=== PATIENT | male | born 1955 | race Caucasian/White ===

== ENCOUNTER 2016-03-28 00:45 | Inpatient (IN) | payer BC, OTHER ==
[2016-03-28] VITALS (9 sets, daily range): BP systolic 114–152; BP diastolic 53–66; PULSE 72–82; RESP 18–20; TEMP 98; Ht 167.6 cm; Wt 94.0 kg
[~2016-03-28] VITALS: Ht 167.6 cm; Wt 94.0 kg
[~2016-03-28 00:45] MED LIST: ALLO300T2 PO; ALPR1TAB2 PO; BECL8.7A5 INH; DOXA4TAB3 PO; GABA300C16 PO; GEMF600T60 PO; GLIP5TAB13 PO; HYDR-3011 PO; HYDR-762 PO; INSU100V14 SC; LEVO50TA74 PO; PANT40TA3 PO; PARO-37 PO; SEVE800T10 PO; SITA50TA2 PO
[2016-03-28] MEDS ORDERED: morphine 4 MG/ML VIAL IV STA ×2 (01:00→01:54)
[2016-03-28] MEDS ORDERED: ONDANSETRON 4 MG INJ IV STA (01:00)
[2016-03-28 01:25] LABS: BASOPHILS % 0.4 % (0.0-2.0); EOSINOPHILS % 0.7 % (0.0-7.0); HEMATOCRIT 41.1 % (42.0-52.0); HEMOGLOBIN 13.3 g/dl (14.0-18.0); LYMPHOCYTES # 1.1 10^3/ul (0.8-2.9); LYMPHOCYTES % 19.2 % (15.0-51.0); MEAN CORPUSCULAR HEMOGLOBIN 30.1 pg (29.0-33.0); MEAN CORPUSCULAR HGB CONC 32.4 g/dl (32.0-37.0); MEAN CORPUSCULAR VOLUME 92.9 fl (82.0-101.0); MEAN PLATELET VOLUME 8.4 fl (7.4-10.4); MONOCYTE # 0.3 10^3/ul (0.3-0.9); MONOCYTES % 5.4 % (0.0-11.0); NEUTROPHIL # 4.4 10^3/ul (1.6-7.5); NEUTROPHILS % 74.3 % (39.0-77.0); PLATELET COUNT 180 10^3/UL (140-440); RED BLOOD COUNT 4.43 10^6/ul (4.70-6.10); RED CELL DISTRIBUTION WIDTH 20.1 % (11.5-14.5); UNCORRECTED WBC 5.9 10^3/ul (4.8-10.8); WHITE BLOOD COUNT 5.9 10^3/ul (4.8-10.8)
--- NOTE | 2016-03-28 01:31 | RADRPT ---
PROCEDURE: XR Chest. CLINICAL INDICATION: Single frontal view of the chest. TECHNIQUE: Single frontal view of the chest was obtained COMPARISON: 01/15/2016. FINDINGS: Cardiomegaly with bilateral patchy lung base air space disease and left pleural effusion. Airspace disease and effusion are new or interval. There is no pneumothorax. IMPRESSION: Cardiomegaly and mild failure, with small left pleural effusion. RPTAT: [facility] Physician Maryellen Date Time Electronically viewed and signed by Samantha Swanson Physician on 03/28/2016 01:31 RS/
[2016-03-28 01:33] LABS: CONDITION 1; LH ANALYZER COMMENTS 1
[2016-03-28 01:36] LABS: ALBUMIN 3.8 g/dl (3.3-4.9)
[2016-03-28 01:37] LABS: POTASSIUM 5.6 mmol/L (3.5-5.1)
[2016-03-28 01:39] LABS: ALBUMIN/GLOBULIN RATIO 0.95; CREATININE 8.4 mg/dl (0.61-1.24); TOTAL PROTEIN 7.8 g/dl (6.1-8.1)
[2016-03-28 01:52] LABS: TROPONIN-I 0.018 ng/ml (0.00-0.12)
--- NOTE | 2016-03-28 02:17 | ERA ---
ER Documentation Chief Complaint Date/Time DATE: 03/28/16 TIME: 02:16 Chief Complaint CP at xyphoid process, upper sternum, left shoulder x 45 min "pulsating" HPI 60-year-old male comes in with chest pain shortness of breath for the past 2 days getting progressively worse. Patient stated medical history along with history of congestive heart failure. Pain is mild to moderate intensity. Shortness of breath is mild to moderate severity. No nausea no vomiting no fevers no chills. No other current complaints. ROS All systems reviewed and are negative except as per history of present illness. Medications Home Meds Active Scripts Glipizide* (Glipizide*) 5 Mg Tablet, 5 MG PO AC BREAKFAST DINNER for 60 Days, TAB Prov:STACEY NEWTON. 05/31/15 Alprazolam* (Xanax*) 1 Mg Tab, 1 MG PO BID Y for ANXIETY, #30 TAB Prov:STACEY NEWTON. 05/31/15 Hydrocodone Bit-Acetaminophen* ([place]*) 10-325 Mg Tablet, 1 TAB PO Q4H Y for PAIN, #20 TAB Prov:KAYLYN ORDAZ MD 02/20/15 Reported Medications Pantoprazole* (Protonix*) 40 Mg Tablet.dr, 40 MG PO DAILY, TAB 02/20/15 Gabapentin* (Gabapentin*) 300 Mg Capsule, 300 MG PO BID, CAP 03/17/14 Sitagliptin* (Januvia*) 50 Mg Tablet, 50 MG PO DAILY, TAB 03/17/14 Allopurinol* (Allopurinol*) 300 Mg Tablet, 300 MG PO DAILY, TAB 12/02/13 Beclomethasone Dip* (Qvar 80*) 7.3 Gm Inha, 1 PUFF INH BID, INH 12/02/13 Levothyroxine Sodium* (Levothyroxine Sodium*) 50 Mcg Tablet, 50 MCG PO AC BREAKFAST, TAB 12/02/13 Doxazosin Mesylate* (Doxazosin Mesylate*) 4 Mg Tablet, 4 MG PO DAILY, TAB 12/02/13 Gemfibrozil* (Gemfibrozil*) 600 Mg Tablet, 600 MG PO DAILY, TAB 12/02/13 Hydroxyzine Hcl* (Hydroxyzine Hcl*) 25 Mg Tablet, 25 MG PO DAILY for ITCHING, TAB 12/02/13 Sevelamer Hcl* (Renagel*) 800 Mg Tablet, 800 MG PO TID, TAB 09/10/13 Insulin Regular, Human (Humulin R) 100 Units/Ml Vial, SC HS, VIAL per sliding scale 09/10/13 Paroxetine Hcl* (Paroxetine*) 20 Mg Tablet, 20 MG PO DAILY, TAB 09/02/13 Allergies Allergies: Coded Allergies: No Known Allergy (Unverified , 12/29/15) PER PT NOT ALLERGIC TO IRON (NKA) PMhx/Soc History of Surgery: Yes (AV fistula, CABG, aortofemoral bypass bilaterally) Anesthesia Reaction: No Hx Neurological Disorder: No Hx Respiratory Disorders: Yes (COPD) Hx Cardiac Disorders: Yes (S/P CABG, HTN) Hx Psychiatric Problems: No Hx Miscellaneous Medical Probl: Yes (CKD) Hx Alcohol Use: No Hx Substance Use: No Hx Tobacco Use: Yes Smoking Status: Current every day smoker Physical Exam Vitals Vital Signs Date Time Temp Pulse Resp B/P Pulse Ox O2 Delivery O2 Flow Rate FiO2 03/28/16 01:03 Nasal Cannula 2 03/28/16 00:46 98.5 96 20 134/68 98 Physical Exam Const: [] Head: Atraumatic Eyes: Normal Conjunctiva ENT: Normal External Ears, Nose and Mouth. Neck: Full range of motion..~ No meningismus. Resp: Clear to auscultation bilaterally Cardio: Regular rate and rhythm, no murmurs Abd: Soft, non tender, non distended. Normal bowel sounds Skin: No petechiae or rashes Back: No midline or flank tenderness Ext: No cyanosis, or edema Neur: Awake and alert Psych: Normal Mood and Affect Result Diagram: 03/28/16 0050 03/28/16 0050 Results 24 hrs Laboratory Tests Test 03/28/16 00:50 Alanine Aminotransferase (ALT/SGPT) 13IU/L Albumin 3.8g/dl Albumin/Globulin Ratio 0.95 Alkaline Phosphatase 108IU/L Anion Gap 24 Aspartate Amino Transf (AST/SGOT) 16IU/L B-Type Natriuretic Peptide 296462VP/ML Basophils # 0.010^3/ul Basophils % 0.4% Blood Morphology Comment Blood Urea Nitrogen 44mg/dl Calcium Level 9.0mg/dl Carbon Dioxide Level 23mmol/L Chloride Level 104mmol/L Creatinine 8.40mg/dl Direct Bilirubin 0.00mg/dl Eosinophils # 0.010^3/ul Eosinophils % 0.7% Globulin 4.00g/dl Glucose Level 191mg/dl Hematocrit 41.1% Hemoglobin 13.3g/dl Indirect Bilirubin 0.0mg/dl Lymphocytes # 1.110^3/ul Lymphocytes % 19.2% Mean Corpuscular Hemoglobin 30.1pg Mean Corpuscular Hemoglobin Concent 32.4g/dl Mean Corpuscular Volume 92.9fl Mean Platelet Volume 8.4fl Monocytes # 0.310^3/ul Monocytes % 5.4% Neutrophils # 4.410^3/ul Neutrophils % 74.3% Nucleated Red Blood Cells # 0.010^3/ul Nucleated Red Blood Cells % 0.0/100WBC Platelet Count 78879^3/UL Potassium Level 5.6mmol/L Red Blood Count 4.4310^6/ul Red Cell Distribution Width 20.1% Sodium Level 145mmol/L Total Bilirubin 0.0mg/dl Total Protein 7.8g/dl Troponin I 0.018ng/ml White Blood Count 5.910^3/ul Current Medications Medications (Trade) Dose Ordered Sig/Romaine Route PRN Reason Start Time Stop Time Status Last Admin Dose Admin Morphine Sulfate (morphine) 4 mg ONCE STAT IV 03/28/16 01:00 03/28/16 01:04 DC 03/28/16 01:10 Ondansetron HCl (Zofran Inj) 4 mg ONCE STAT IV 03/28/16 01:00 03/28/16 01:04 DC 03/28/16 01:09 Morphine Sulfate (morphine) 4 mg ONCE STAT IV 03/28/16 01:54 03/28/16 01:57 DC 03/28/16 01:58 Procedures/MDM Chest X-ray 1V Interpreted by me: Soft Tissue: No acute abnormalities Bones: No acute abnormalities Mediastinum/Cardiac Silhouette/Lungs: Cardiomegaly. Pleural effusion. Increased interstitial fluid markings. Impression: CHF EKG: Rate/Rhythm: Normal Sinus Rhythm QRS, ST, T-waves: No changes consistent w/ acute ischemia Impression: No evidence of ischemia or arrhythmia Patient's heart failure symptoms is concerning for acute decompensation and will require inpatient workup and monitoring. Further w/u for ischemia, arrhythmia, PE or dissection will be deferred to the inpatient team. Accepting Care Team: Current data and ongoing care discussed. Time: 2 AM Primary Provider: Hospitalist Consulting: [XOXRICHARO] Outstanding Data: none Departure Diagnosis: Primary Impression: Chest pain Qualified Code: I20.9 - Ischemic chest pain Additional Impression: CHF (congestive heart failure) Qualified Code: I50.9 - Congestive heart failure, unspecified congestive heart failure chronicity, unspecified congestive heart failure type Condition: Serious BARB CARR Mar 28, 2016 02:17
[2016-03-28 03:05] LABS: INR 1.06; PROTIME 13.8 Sec (12.2-14.2); PT RATIO 1.1
[2016-03-28 03:06] LABS: PARTIAL THROMBOPLASTIN TIME 28.6 Sec (25.0-35.0)
[2016-03-28] MEDS ORDERED: HYDROmorphONE 1 MG/ML SYG IV STA (04:13)
[2016-03-28] MEDS ORDERED: HYDROCODONE/APAP (10/325) TAB PO PRN (08:30)
[2016-03-28] MEDS ORDERED: ACETAMINOPHEN 325 MG TAB PO PRN (08:30)
[2016-03-28] MEDS ORDERED: NACL 0.9% 3 ML SYG IV SCH (08:30)
[2016-03-28] MEDS ORDERED: NITROGLYCERIN (SL) 0.4 MG TAB SL PRN (08:30)
[2016-03-28] MEDS ORDERED: ONDANSETRON 4 MG INJ IV PRN (08:30)
[2016-03-28] MEDS ORDERED: ALBUTEROL/IPRATROPIUM (NEB) 3 ML AMP HHN PRN (08:30)
[2016-03-28] MEDS ORDERED: ALPRAZOLAM 1 MG TAB PO PRN (09:00)
--- NOTE | 2016-03-28 09:00 | HP ---
DATE OF ADMISSION: 03/28/2016 TIME SEEN: 6 a.m. CHIEF COMPLAINT: Chest pain and shortness of breath. 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 The patient presented with substernal chest pain with radiation to his left shoulder as well a s shortness of breath of 2 days' duration. When he presented to the ER, blood pressure was 134/68, heart rate 96, respiration rate 20, temperature 98.5, oxygen saturation 98% on 2 liters. Laboratory value shows a hemoglobin of 13.3. Sodium 145, potassium 5.6, BUN 44, creatinine 8.4. Ot herwise, CBC and BMP are within acceptable range. His BNP is 158,000. Chest x-ray shows cardiomegaly and a mild failure with small left pleural effusion. The patient was given morphine, Zofran and Dilaudid while he was in the ER. REVIEW OF SYSTEMS: A 12-point review was performed, negative except as mentioned in HPI. PAST MEDICAL HISTORY: As per HPI. PAST SURGICAL HISTORY: Coronary artery bypass graft, aortobifemoral bypass, AV fistula. SOCIAL HISTORY: History of 1 pack per day for over 40 years. ALLERGIES: NO KNOWN DRUG ALLERGIES. HOME MEDICATIONS: 1. Doxazosin. 2. Gemfibrozil. 3. Xanax. 4. Gabapentin. 5. [place]. 6. Hydroxyzine. 7. Paroxetine. 8. Sevelamer. 9. Protonix. 10. Glipizide. 11. Insulin. 12. Synthroid. 13. Januvia. 14. Allopurinol. PHYSICAL EXAMINATION: GENERAL: The patient is lying on a gurney in the ER in no acute distress. HEENT: No obvious head deformity. Pupils are reactive to light. Extraocular muscles intact. CARDIOVASCULAR: Regular rate and rhythm. CHEST: Lungs with diminished breath sounds at the bases. He has a midline wound VAC. ABDOMEN: Soft, nontender, nondistended. EXTREMITIES: Right lower extremity surgical ____ . LABORATORY DATA: Pertinent positives as mentioned in the HPI. IMAGING: Chest x-ray with results as mentioned in the HPI. IMPRESSION: 1. Chest pain, need to rule out acute coronary syndrome. 2. Shortness of breath, most likely secondary to congestive heart failure exacerbation. 3. End-stage renal disease on dialysis. 4. History of coronary artery disease with history of coronary artery bypass graft. 5. Diabetes. 6. Hypertension, 7. Hypothyroidism. 8. History of dyslipidemia. 9. History of BPH. 10. History of aortobifemoral bypass, complicated by infection, status post multiple excisional june geries. 11. Hyperkalemia. 12. Obesity with a BMI of 33. PLAN: Admit to telemetry unit. His first troponin is negative, but we will send additional troponi ns. Since last echocardiogram here was a year and half ago, so will order one. We will place a car diology consult as well as also nephrology consult for dialysis. We will be placed on aspirin, oxyge n and will provide breathing treatments as needed as well. We will continue his home medication adj usted as needed. The patient follows up [facility] and as such will notify them of the patient's admission, especially given recent history of infected aortobifemoral bypass. Further workup and management per clinical course. Dictated By: BARB MATHEW/ROD Conf#: [id number] DID#: [id number]
[2016-03-28] MEDS: morphine 2 MG INJ IV PRN ×2 (09:07→20:31)
[2016-03-28] MEDS: SEVELAMER 800 MG TAB PO SCH ×3 (10:58→20:30)
[2016-03-28] MEDS: PANTOPRAZOLE (EC) 40 MG TAB PO SCH (10:59)
[2016-03-28] MEDS: GEMFIBROZIL 600 MG TAB PO SCH (10:59)
[2016-03-28] MEDS: PAROXETINE 20 MG TAB PO SCH (10:59)
[2016-03-28] MEDS: LINAGLIPTIN 5 MG TABLET PO SCH (10:59)
[2016-03-28] MEDS: GABAPENTIN 300 MG CAP PO SCH ×2 (10:59→20:30)
[2016-03-28] MEDS: hydrOXYzine HCL 25 MG TAB PO SCH (11:00)
[2016-03-28] MEDS: ALLOPURINOL 100 MG TAB PO SCH (11:00)
[2016-03-28] MEDS: MOMETASONE 0.24 GM INHALER INH SCH ×2 (11:01→20:29)
[2016-03-28] MEDS: HEPARIN 5,000 UNIT/0.5 ML SYG SC SCH ×2 (11:02→20:42)
[2016-03-28] MEDS: INSULIN ASPART [NOVOLOG] 3 ML PEN SC SCH ×3 (11:09→20:37)
[2016-03-28] MEDS ORDERED: AMO500 PO (11:59)
--- NOTE | 2016-03-28 14:09 | PN ---
Date/Time of Note Date/Time of Note DATE: 03/28/16 TIME: 14:03 Assessment/Plan VTE Prophylaxis VTE Prophylaxis Intervention: heparin Lines/Catheters IV C[facility]ter Type (from [facility] Saline Lock Urinary Cath still in place: No Assessment/Plan Chief Complaint/Hosp Course IMPRESSION: 1. Chest pain, need to rule out acute coronary syndrome. Cardiology has been consulted, is likely secondary to CHF exacerbation Serial troponin was found to be negative 2. Shortness of breath, most likely secondary to congestive heart failure exacerbation. Continued diuresis, waiting for hemodialysis 3. End-stage renal disease on dialysis. Nephrology has been consulted, proceed with hemodialysis as per his recommendations 4. History of coronary artery disease with history of coronary artery bypass graft. Continue aggressive medical management 5. Diabetes. Continue low-carb diet, insulin, insulin sliding scale 6. Hypertension, Well-controlled on medical management 7. Hypothyroidism. Continue levothyroxine 8. History of dyslipidemia. Continue statin 9. History of BPH. 10. History of aortobifemoral bypass, complicated by infection, status post multiple excisional surgeries. Continue wound care, wound VAC care 11. Hyperkalemia. Likely secondary to end-stage renal disease, 12. Obesity with a BMI of 33. PLAN: Continue to monitor at telemetry unit. The patient follows up at [facility] and as such will notify them of the patient's admission, especially given recent history of infected aortobifemoral bypass. Further workup and management per clinical course. Plan to discharge home tomorrow after dialysis Problems: Subjective 24 Hr Interval Summary Free Text/Dictation Patient denies of any chest pain or shortness of breath No nausea vomiting diarrhea Complains of minor abdominal discomfort at the site of wound VAC Exam/Review of Systems Vital Signs Vitals Vital Signs Date Time Temp Pulse Resp B/P Pulse Ox O2 Delivery O2 Flow Rate FiO2 03/28/16 12:23 82 03/28/16 11:40 97.6 20 131/58 96 03/28/16 08:56 Room Air 03/28/16 07:30 2.0 Exam General: The patient is moderately overweight, Not in acute distress. HEENT: Atraumatic, normocephalic. The pupils are equal and round . Neck: Supple with full range of motion. Chest: Normal expansion of the thorax during inspiration Lungs: Clear to auscultation bilaterally Heart: Normal S1-S2, Regular rhythm and rate. Abdomen: Soft , minimally tender at the site of wound VAC, nondistended , bowel sounds are present. No sign of erythema or infection Extremities: Normal to inspection, no edema no cyanosis Neurologic: Normal mental status,The patient is awake, alert and oriented . Results Result Diagram: 03/28/16 0050 03/28/16 0050 Results 24 hrs Laboratory Tests Test 03/28/16 00:50 03/28/16 02:40 03/28/16 11:08 03/28/16 11:40 Alanine Aminotransferase (ALT/SGPT) 13 Albumin 3.8 Albumin/Globulin Ratio 0.95 Alkaline Phosphatase 108 Anion Gap 24 H Aspartate Amino Transf (AST/SGOT) 16 B-Type Natriuretic Peptide 538099 H Basophils # 0.0 Basophils % 0.4 Blood Morphology Comment Blood Urea Nitrogen 44 H Calcium Level 9.0 Carbon Dioxide Level 23 Chloride Level 104 Creatinine 8.40 H Direct Bilirubin 0.00 Eosinophils # 0.0 Eosinophils % 0.7 Globulin 4.00 H Glucose Level 191 Hematocrit 41.1 L Hemoglobin 13.3 L Indirect Bilirubin 0.0 Lymphocytes # 1.1 Lymphocytes % 19.2 Mean Corpuscular Hemoglobin 30.1 Mean Corpuscular Hemoglobin Concent 32.4 Mean Corpuscular Volume 92.9 Mean Platelet Volume 8.4 Monocytes # 0.3 Monocytes % 5.4 Neutrophils # 4.4 Neutrophils % 74.3 Nucleated Red Blood Cells # 0.0 Nucleated Red Blood Cells % 0.0 Platelet Count 180 Potassium Level 5.6 H Red Blood Count 4.43 L Red Cell Distribution Width 20.1 #H Sodium Level 145 H Total Bilirubin 0.0 L Total Protein 7.8 Troponin I 0.018 0.018 White Blood Count 5.9 # Activated Partial Thromboplast Time 28.6 INR International Normalized Ratio 1.06 Prothrombin Time 13.8 Prothrombin Time Ratio 1.1 Bedside Glucose 116 Medications Medications Current Medications Ondansetron HCl (Zofran Inj) 4 mg Q6H PRN IV NAUSEA AND/OR VOMITING; Start at 08:30 Nitroglycerin (Nitroglycerin (Sl Tab) 0.4 Mg) 1 tab Q5M PRN SL CHEST PAIN; Start 03/28/16 at 08:30 Acetaminophen (Tylenol Tab) 650 mg Q6H PRN PO PAIN LEVEL 1-3 OR FEVER; Start at 08:30 Morphine Sulfate (morphine) 2 mg Q4H PRN IV PAIN LEVEL 7-10 Last administered on 03/28/16 09:07; Admin Dose 2 MG; Start 03/28/16 at 08:30 Heparin Sodium (Porcine) (Heparin (5000 Units/0.5 ml)) 5,000 unit Q12 SC Last administered on 03/28/16 11:02; Admin Dose 5,000 UNIT; Start 03/28/16 at 09:00 Allopurinol (Zyloprim) 100 mg DAILY PO Last administered on 03/28/16 11:00; Admin Dose 100 MG; Start 03/28/16 at 10:30 Alprazolam (Xanax) 1 mg BID PRN PO ANXIETY; Start 03/28/16 at 09:00 Doxazosin Mesylate (Cardura) 4 mg DAILY@21 PO ; Start 03/28/16 at 21:00 Gabapentin (Neurontin) 300 mg BID PO Last administered on 03/28/16 10:59; Admin Dose 300 MG; Start 03/28/16 at 09:00 Gemfibrozil (Lopid) 600 mg DAILY PO Last administered on 03/28/16 10:59; Admin Dose 600 MG; Start 03/28/16 at 09:00 Acetaminophen/ Hydrocodone Bitart ([place] (10/325)) 1 tab Q4H PRN PO PAIN; Start 03/28/16 at 08:30 Hydroxyzine HCl (Atarax) 25 mg DAILY PO Last administered on 03/28/16 11:00; Admin Dose 25 MG; Start 03/28/16 at 09:00 Pantoprazole (Protonix Tab) 40 mg DAILY@06 PO Last administered on 03/28/16 10 :59; Admin Dose 40 MG; Start 03/28/16 at 09:00 Paroxetine HCl (Paxil) 20 mg DAILY PO Last administered on 03/28/16 10:59; Admin Dose 20 MG; Start 03/28/16 at 09:00 Sevelamer HCl (Renagel) 800 mg TID PO Last administered on 03/28/16 10:58; Admin Dose 800 MG; Start 03/28/16 at 09:00 Mometasone Furoate (Asmanex) 1 puff BID INH Last administered on 03/28/16 11: 01; Admin Dose 1 PUFF; Start 03/28/16 at 09:00 Linagliptin (Tradjenta) 5 mg DAILY PO Last administered on 03/28/16 10:59; Admin Dose 5 MG; Start 03/28/16 at 09:00 Diagnostic Test (Pha) (Accucheck) 1 ea 02 XX ; Start 03/29/16 at 02:00 SRIRAM MARTÍNEZ MD Mar 28, 2016 14:09
--- NOTE | 2016-03-28 16:35 | RADRPT ---
Echocardiogram Report Patient Name: FELI GARCIA Gender: Male Date: 1955 Study Date: 28-Mar-2016 Sod Farmer: Jorge Rebollar [facility] Location: [id number] Ref. Physician: BARB RUTHERFORD Quality: Good Procedures: Transthoracic echocardiogram with complete 2D, M-Mode, and doppler examination. Indications: Congestive Heart Failure. 2D/M Mode Doppler Measurement Value Normal Ranges Measurement Value Normal Ranges LVIDd 2D 6.2 3.5 - 5.6 cm AV Peak Wilberto 1.5 m/sec LVIDs 2D 5.4 2.1 - 4.1 cm AV Peak PG 9.4 mmHg LVPWd 2D 0.6 0.6 - 1.1 cm LVOT Peak Wilberto 0.9 m/sec IVSd 2D 0.7 0.6 - 1.1 cm LVOT Peak PG 3.3 mmHg AoR Diam 2D 3.0 2.0 - 3.7 cm MV E Peak Wilberto 1.3 m/sec EDV 2D 192.0 cm3 MV A Peak Wilberto 0.8 m/sec ESV 2D 159.8 cm3 MV E/A 1.6 LA Dimen 2D 4.8 2.3 - 4.0 cm MV Decel Time 239 msec MV Decel [place] 5 MV E/A 1.6 TR Peak Wilberto 3.3 m/sec TR Peak PG 44.4 mmHg RVSP 47.0 mmHg Findings Left Ventricle: Normal left ventricular wall thickness. Mild enlargement of left ventricle cavity. Moderate global left ventricular systolic dysfunction. Ejection fraction is visually estimated at 35 - 40 %. Right Ventricle: Normal right ventricular size. Normal right ventricular systolic function. Left Atrium: There is moderate enlargement of left atrium. Right Atrium: There is mild enlargement of right atrium. Mitral Valve: Mitral valve leaflets appear mildly thickened. Mild mitral annular calcification. Trace mitral regurgitation. Aortic Valve: No significant aortic stenosis or insufficiency. Aortic cusps appear mildly calcified. Tricuspid Valve: Normal appearance of the tricuspid valve. Estimated peak PA systolic pressure 47 mmHg. There is moderate tricuspid regurgitation. Pericardium: Normal pericardium with no significant pericardial effusion. Aorta: Normal aortic root. IVC: Normal size and normal respiratory collapse consistent with normal right atrial pressure. Conclusions 1.Normal left ventricular wall thickness. Mild enlargement of left ventricle cavity. Moderate global left ventricular systolic dysfunction. Ejection fraction is visually estimated at 35 - 40 %. 2.There is moderate enlargement of left atrium. 3.There is mild enlargement of right atrium. 4.Mitral valve leaflets appear mildly thickened. Mild mitral annular calcification. Trace mitral regurgitation. 5.No significant aortic stenosis or insufficiency. Aortic cusps appear mildly calcified. 6.Normal appearance of the tricuspid valve. Estimated peak PA systolic pressure 47 mmHg. There is moderate tricuspid regurgitation. 7.Normal size and normal respiratory collapse consistent with normal right atrial pressure. Electronically Signed By: Mik Huff 28-Mar-2016 16:34:25 -0800 Patient Name: FELI GARCIA Study Date: [id number]
--- NOTE | 2016-03-28 17:16 | CONS ---
Date/Time of Note Date/Time of Note DATE: 03/28/16 TIME: 17:13 Assessment/Plan Assessment/Plan Chief Complaint/Hosp Course - ESRD Dialysis dependent - Hyperkalemia - CHF / Volume overloaded - CAD PLAN: Bedside dialysis for correcting Hyperkalemia & Volume status Cardiology Following Follow up with Labs THANK YOU Ellis TEJEDA Problems: Consultation Date/Type/Reason Admit Date/Time Mar 28, 2016 at 02:18 Date of Consultation: Mar 28, 2016 Type of Consultation: NEPHROLOGY Reason for Consultation ESRD on Hemodialysis Constitutional: diaphoresis Eyes: no complaints ENT: no complaints Respiratory: shortness of breath Cardiovascular: chest pain Gastrointestinal: no complaints Genitourinary: no complaints Past Medical History ESRD on Dialysis Anemia Hypertension CAD/CHF DM Family History Significant Family History: no pertinent family hx Social History Alcohol Use: none Smoking Status: Heavy tobacco smoker Drug Use: none Exam/Review of Systems Vital Signs Vitals Vital Signs Date Time Temp Pulse Resp B/P Pulse Ox O2 Delivery O2 Flow Rate FiO2 03/28/16 17:05 81 03/28/16 16:49 97.8 20 133/60 98 03/28/16 08:56 Room Air 03/28/16 07:30 2.0 Exam Constitutional: alert, oriented Psych: no complaints Head: normocephalic Eyes: nl conjunctiva ENMT: nl external ears & nose Neck: jvd, supple Respiratory: crackles/rales Cardiovascular: regular rate and rhythm, systolic murmur Gastrointestinal: soft Results Result Diagram: 03/28/16 0050 03/28/16 0050 Results 24 hrs Laboratory Tests Test 03/28/16 00:50 03/28/16 02:40 03/28/16 11:08 03/28/16 11:40 Alanine Aminotransferase (ALT/SGPT) 13 Albumin 3.8 Albumin/Globulin Ratio 0.95 Alkaline Phosphatase 108 Anion Gap 24 H Aspartate Amino Transf (AST/SGOT) 16 B-Type Natriuretic Peptide 793021 H Basophils # 0.0 Basophils % 0.4 Blood Morphology Comment Blood Urea Nitrogen 44 H Calcium Level 9.0 Carbon Dioxide Level 23 Chloride Level 104 Creatinine 8.40 H Direct Bilirubin 0.00 Eosinophils # 0.0 Eosinophils % 0.7 Globulin 4.00 H Glucose Level 191 Hematocrit 41.1 L Hemoglobin 13.3 L Indirect Bilirubin 0.0 Lymphocytes # 1.1 Lymphocytes % 19.2 Mean Corpuscular Hemoglobin 30.1 Mean Corpuscular Hemoglobin Concent 32.4 Mean Corpuscular Volume 92.9 Mean Platelet Volume 8.4 Monocytes # 0.3 Monocytes % 5.4 Neutrophils # 4.4 Neutrophils % 74.3 Nucleated Red Blood Cells # 0.0 Nucleated Red Blood Cells % 0.0 Platelet Count 180 Potassium Level 5.6 H Red Blood Count 4.43 L Red Cell Distribution Width 20.1 #H Sodium Level 145 H Total Bilirubin 0.0 L Total Protein 7.8 Troponin I 0.018 0.018 White Blood Count 5.9 # Activated Partial Thromboplast Time 28.6 INR International Normalized Ratio 1.06 Prothrombin Time 13.8 Prothrombin Time Ratio 1.1 Bedside Glucose 116 Test 03/28/16 14:42 Troponin I 0.017 Medications Medications Current Medications Ondansetron HCl (Zofran Inj) 4 mg Q6H PRN IV NAUSEA AND/OR VOMITING; Start at 08:30 Nitroglycerin (Nitroglycerin (Sl Tab) 0.4 Mg) 1 tab Q5M PRN SL CHEST PAIN; Start 03/28/16 at 08:30 Acetaminophen (Tylenol Tab) 650 mg Q6H PRN PO PAIN LEVEL 1-3 OR FEVER; Start at 08:30 Morphine Sulfate (morphine) 2 mg Q4H PRN IV PAIN LEVEL 7-10 Last administered on 03/28/16 09:07; Admin Dose 2 MG; Start 03/28/16 at 08:30 Heparin Sodium (Porcine) (Heparin (5000 Units/0.5 ml)) 5,000 unit Q12 SC Last administered on 03/28/16 11:02; Admin Dose 5,000 UNIT; Start 03/28/16 at 09:00 Allopurinol (Zyloprim) 100 mg DAILY PO Last administered on 03/28/16 11:00; Admin Dose 100 MG; Start 03/28/16 at 10:30 Alprazolam (Xanax) 1 mg BID PRN PO ANXIETY; Start 03/28/16 at 09:00 Doxazosin Mesylate (Cardura) 4 mg DAILY@21 PO ; Start 03/28/16 at 21:00 Gabapentin (Neurontin) 300 mg BID PO Last administered on 03/28/16 10:59; Admin Dose 300 MG; Start 03/28/16 at 09:00 Gemfibrozil (Lopid) 600 mg DAILY PO Last administered on 03/28/16 10:59; Admin Dose 600 MG; Start 03/28/16 at 09:00 Acetaminophen/ Hydrocodone Bitart ([place] (10/325)) 1 tab Q4H PRN PO PAIN; Start 03/28/16 at 08:30 Hydroxyzine HCl (Atarax) 25 mg DAILY PO Last administered on 03/28/16 11:00; Admin Dose 25 MG; Start 03/28/16 at 09:00 Pantoprazole (Protonix Tab) 40 mg DAILY@06 PO Last administered on 03/28/16 10 :59; Admin Dose 40 MG; Start 03/28/16 at 09:00 Paroxetine HCl (Paxil) 20 mg DAILY PO Last administered on 03/28/16 10:59; Admin Dose 20 MG; Start 03/28/16 at 09:00 Sevelamer HCl (Renagel) 800 mg TID PO Last administered on 03/28/16 10:58; Admin Dose 800 MG; Start 03/28/16 at 09:00 Mometasone Furoate (Asmanex) 1 puff BID INH Last administered on 03/28/16 11: 01; Admin Dose 1 PUFF; Start 03/28/16 at 09:00 Linagliptin (Tradjenta) 5 mg DAILY PO Last administered on 03/28/16 10:59; Admin Dose 5 MG; Start 03/28/16 at 09:00 Diagnostic Test (Pha) (Accucheck) 1 ea 02 XX ; Start 03/29/16 at 02:00 GER BOWMAN MD Mar 28, 2016 17:16
[2016-03-28] MEDS ORDERED: DOXAZOSIN 4 MG TAB PO SCH (21:00)
[2016-03-29] VITALS (17 sets, daily range): BP systolic 115–146; BP diastolic 54–75; PULSE 65–84; RESP 16–19
[2016-03-29] MEDS: morphine 2 MG INJ IV PRN ×3 (01:10→10:06)
[2016-03-29] MEDS ORDERED: ACCUCHECK XX SCH (02:00)
[2016-03-29] MEDS: PANTOPRAZOLE (EC) 40 MG TAB PO SCH (05:18)
[2016-03-29] MEDS ORDERED: LEVOTHYROXINE 50 MCG TAB PO SCH (07:25)
[2016-03-29 07:42] LABS: BASOPHILS % 0.1 % (0.0-2.0); EOSINOPHILS # 0.1 10^3/ul (0.0-0.5); EOSINOPHILS % 1.3 % (0.0-7.0); HEMATOCRIT 34.3 % (42.0-52.0); LYMPHOCYTES # 1.2 10^3/ul (0.8-2.9); LYMPHOCYTES % 20.6 % (15.0-51.0); MEAN CORPUSCULAR HEMOGLOBIN 30.2 pg (29.0-33.0); MEAN CORPUSCULAR HGB CONC 32.2 g/dl (32.0-37.0); MEAN CORPUSCULAR VOLUME 93.8 fl (82.0-101.0); MEAN PLATELET VOLUME 7.9 fl (7.4-10.4); MONOCYTE # 0.3 10^3/ul (0.3-0.9); NEUTROPHIL # 4.1 10^3/ul (1.6-7.5); PLATELET COUNT 156 10^3/UL (140-440); RED BLOOD COUNT 3.65 10^6/ul (4.70-6.10); RED CELL DISTRIBUTION WIDTH 20.4 % (11.5-14.5); UNCORRECTED WBC 5.6 10^3/ul (4.8-10.8); WHITE BLOOD COUNT 5.6 10^3/ul (4.8-10.8)
[2016-03-29 07:43] LABS: CONDITION 1
[2016-03-29 07:44] LABS: LH ANALYZER COMMENTS 1
[2016-03-29 07:48] LABS: POTASSIUM 5.7 mmol/L (3.5-5.1)
[2016-03-29 07:50] LABS: CREATININE 9.73 mg/dl (0.61-1.24)
[2016-03-29 07:51] LABS: CALCIUM 8.4 mg/dl (8.4-10.2)
[2016-03-29] MEDS: INSULIN ASPART [NOVOLOG] 3 ML PEN SC SCH ×2 (07:55→11:50)
[2016-03-29] MEDS: GABAPENTIN 300 MG CAP PO SCH ×2 (09:00→13:06)
[2016-03-29] MEDS: HEPARIN 5,000 UNIT/0.5 ML SYG SC SCH (09:00)
[2016-03-29] MEDS: SEVELAMER 800 MG TAB PO SCH ×2 (09:00→13:06)
[2016-03-29] MEDS: GEMFIBROZIL 600 MG TAB PO SCH ×2 (09:00→13:20)
[2016-03-29] MEDS: PAROXETINE 20 MG TAB PO SCH ×2 (09:00→13:07)
[2016-03-29] MEDS: ALLOPURINOL 100 MG TAB PO SCH (09:00)
[2016-03-29] MEDS: MOMETASONE 0.24 GM INHALER INH SCH ×2 (09:00→13:06)
[2016-03-29] MEDS: LINAGLIPTIN 5 MG TABLET PO SCH (09:00)
[2016-03-29] MEDS: hydrOXYzine HCL 25 MG TAB PO SCH ×2 (09:00→13:07)
--- NOTE | 2016-03-29 13:54 | CONS ---
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 The patient presented with substernal chest pain with radiation to his left shoulder as well as shortness of breath of 2 days' duration. When he presented to the ER, blood pressure was 134/68, heart rate 96, respiration rate 20, temperature 98.5 , oxygen saturation 98% on 2 liters. Constitutional: diaphoresis Eyes: no complaints ENT: no complaints Respiratory: shortness of breath Cardiovascular: chest pain Gastrointestinal: no complaints Genitourinary: no complaints Psychological: no complaints Social History Alcohol Use: none Smoking Status: Heavy tobacco smoker Drug Use: none Exam/Review of Systems Vital Signs Vitals Vital Signs Date Time Temp Pulse Resp B/P Pulse Ox O2 Delivery O2 Flow Rate FiO2 03/29/16 12:13 76 03/29/16 12:07 98.5 16 139/54 96 03/29/16 04:00 Room Air 03/28/16 07:30 2.0 Intake and Output 03/28/16 03/28/16 03/29/16 15:00 23:00 07:00 Intake Total 120 ml 600 ml Output Total 0 ml Balance 120 ml 600 ml Results Result Diagram: 03/29/16 0645 03/29/16 0645 Results 24 hrs Laboratory Tests Test 03/28/16 14:42 03/28/16 17:46 03/28/16 20:37 03/29/16 06:45 Troponin I 0.017 Bedside Glucose 90 135 Anion Gap 21 H Basophils # 0.0 Basophils % 0.1 Blood Morphology Comment Blood Urea Nitrogen 54 H Calcium Level 8.4 Carbon Dioxide Level 22 Chloride Level 106 Creatinine 9.73 H Eosinophils # 0.1 Eosinophils % 1.3 Glucose Level 94 # Hematocrit 34.3 L Hemoglobin 11.0 L Lymphocytes # 1.2 Lymphocytes % 20.6 Mean Corpuscular Hemoglobin 30.2 Mean Corpuscular Hemoglobin Concent 32.2 Mean Corpuscular Volume 93.8 Mean Platelet Volume 7.9 Monocytes # 0.3 Monocytes % 6.0 Neutrophils # 4.1 Neutrophils % 72.0 Nucleated Red Blood Cells # 0.0 Nucleated Red Blood Cells % 0.0 Platelet Count 156 Potassium Level 5.7 H Red Blood Count 3.65 L Red Cell Distribution Width 20.4 H Sodium Level 143 White Blood Count 5.6 Test 03/29/16 08:15 03/29/16 12:20 Bedside Glucose 87 121 Medications Medications Current Medications Ondansetron HCl (Zofran Inj) 4 mg Q6H PRN IV NAUSEA AND/OR VOMITING; Start at 08:30 Nitroglycerin (Nitroglycerin (Sl Tab) 0.4 Mg) 1 tab Q5M PRN SL CHEST PAIN; Start 03/28/16 at 08:30 Acetaminophen (Tylenol Tab) 650 mg Q6H PRN PO PAIN LEVEL 1-3 OR FEVER; Start at 08:30 Morphine Sulfate (morphine) 2 mg Q4H PRN IV PAIN LEVEL 7-10 Last administered on 03/29/16 10:06; Admin Dose 2 MG; Start 03/28/16 at 08:30 Heparin Sodium (Porcine) (Heparin (5000 Units/0.5 ml)) 5,000 unit Q12 SC Last administered on 03/28/16 20:42; Admin Dose 5,000 UNIT; Start 03/28/16 at 09:00 Allopurinol (Zyloprim) 100 mg DAILY PO Last administered on 03/28/16 11:00; Admin Dose 100 MG; Start 03/28/16 at 10:30 Alprazolam (Xanax) 1 mg BID PRN PO ANXIETY; Start 03/28/16 at 09:00 Doxazosin Mesylate (Cardura) 4 mg DAILY@21 PO Last administered on 03/28/16 20 :29; Admin Dose 4 MG; Start 03/28/16 at 21:00 Gabapentin (Neurontin) 300 mg BID PO Last administered on 03/29/16 13:06; Admin Dose 300 MG; Start 03/28/16 at 09:00 Gemfibrozil (Lopid) 600 mg DAILY PO Last administered on 03/29/16 13:20; Admin Dose 600 MG; Start 03/28/16 at 09:00 Acetaminophen/ Hydrocodone Bitart ([place] (10/325)) 1 tab Q4H PRN PO PAIN; Start 03/28/16 at 08:30 Hydroxyzine HCl (Atarax) 25 mg DAILY PO Last administered on 03/29/16 13:07; Admin Dose 25 MG; Start 03/28/16 at 09:00 Pantoprazole (Protonix Tab) 40 mg DAILY@06 PO Last administered on 03/29/16 05 :18; Admin Dose 40 MG; Start 03/28/16 at 09:00 Paroxetine HCl (Paxil) 20 mg DAILY PO Last administered on 03/29/16 13:07; Admin Dose 20 MG; Start 03/28/16 at 09:00 Sevelamer HCl (Renagel) 800 mg TID PO Last administered on 03/29/16 13:06; Admin Dose 800 MG; Start 03/28/16 at 09:00 Mometasone Furoate (Asmanex) 1 puff BID INH Last administered on 03/29/16 13: 06; Admin Dose 1 PUFF; Start 03/28/16 at 09:00 Linagliptin (Tradjenta) 5 mg DAILY PO Last administered on 03/28/16 10:59; Admin Dose 5 MG; Start 03/28/16 at 09:00 Diagnostic Test (Pha) (Accucheck) 1 ea 02 XX ; Start 03/29/16 at 02:00 BERNARD ROSE MD Mar 29, 2016 13:54
--- NOTE | 2016-03-29 14:00 | PDOCDIS ---
Discharge Instructions CONDITION Patient Condition: Good HOME CARE INSTRUCTIONS: Special Diet: Cardiac and DM ACTIVITY: Activity Restrictions: Slowly Increase Activity Rest between Activity Avoid heavy lifting FOLLOW UP/APPOINTMENTS Appointments Follow-up with [facility] for wound care Follow up with nephrology as outpatient SRIRAM MARTÍNEZ MD Mar 29, 2016 14:00
[2016-03-29] MEDS ORDERED: LACT1CAP17 PO (14:15)
--- NOTE | 2016-03-30 04:48 | DS ---
DATE OF ADMISSION: 03/28/2016 DATE OF DISCHARGE: 03/29/2016 PROCEDURE: A 2D echocardiogram which demonstrated ejection fraction of 35% to 40% with a moderate e nlargement of the left atrium, mild enlargement of right atrium, PA systolic pressure 47 mmHg. DIAGNOSES: 1. Atypical chest pain. Acute coronary syndrome was ruled out with negative troponin. Cardiology was consulted. 2. Shortness of breath, resolved. 3. End-stage renal disease on hemodialysis. 4. History of coronary artery disease status post history of coronary artery bypass graft. Continu e aggressive medical management. The patient will follow up with his thoracic surgeon regarding con tinued antiplatelet and statin. 5. Diabetes mellitus. Continue insulin and insulin sliding scale. 6. Hypertension, well controlled on medical management. 7. Hypothyroidism. Continue levothyroxine. 8. History of dyslipidemia. Continue Lopid. 9. History of arterial femoral bypass complicated by infection status post multiple excision surger y. Continue wound VAC. Continue amoxicillin. 10. Hyperkalemia secondary to end-stage renal disease status post hemodialysis. 11. Obesity with BMI of 33. Diet and exercise was recommended. MEDICATIONS: No change in his home medication. 1. [place] 2. mg. 3. Xanax 1 mg. 4. QVAR 80 mg. 5. Doxazosin mesylate 4 mg. 6. Gabapentin 300 mg daily. 7. Gemfibrozil 600 mg. 8. Glipizide 5 mg. 9. Hydroxyzine 25 mg. 10. Insulin Humulin regular. 11. Probiotic. 12. Levothyroxine 50. 13. 40 mg. 14. Paxil 20 mg. 15. Renagel 100 mg. 16. Januvia 50 mg. ALLERGIES: NO KNOWN DRUG ALLERGIES. HOSPITAL COURSE: This is a 60-year-old gentleman with past medical history of CHF, diabetes mellitu s, diabetic nephropathy, end-stage renal disease on hemodialysis, hypothyroidism, hypertension, dysl ipidemia, BPH, history of arterial bifemoral bypass complicated by infection status multiple surgeri es in order to excise his infected area, history of wound VAC, and history of coronary artery bypass graft who presents to [facility] secondary to having shortness of breath. His WB C was found to be normal. BMP 158,000. Hemoglobin 13.3. Sodium 145. The patient was admitted to telemetry floor where health counselor and diving supervisor were consulted. The patient was placed on his h ome medication, and he was diuresed by hemodialysis. In regard to his hypertension, his blood press ure is well controlled on medical management via Cardura. He was seen and evaluated by the nephrolo gist, and nephrology has set up the hemodialysis which he obtained today. Today the patient denies any chest pain, shortness of breath, nausea, vomiting, diarrhea. He has been able to tolerate oral intake. I have spoken to his and him regarding the lack of having anticoagulation or antiplate let and statin with his history of coronary artery disease. Apparently, all of his medications were placed on hold prior to his surgery, although he has not been continued. I have [facility], and at this time he has been deferred to follow up with his own cardio thoracic surgery with which he has an appointment tomorrow. I have written a note to the physician regarding the medication as above to be continued. The patient at least should be on aspirin and st atin secondary to his history of coronary artery disease. At this time, the patient is medically st able to be discharged home. VITAL SIGNS: Temperature 98.5, pulse 80, respirations 16, blood pressure 139/55, saturating 96% on room air. CONDITION: Stable. Dictated By: SRIRAM SILVEIRA/ROD Conf#: [id number] DID#: [id number]
== END 2016-03-29 15:30 | disposition home or self-care (01) | DRG 291 ==
LOC: E/R 00:45 → MS4 02:18 → TEL 03-29 04:58
PROVIDERS: ADMIT Internal Medicine; ATTEND Internal Medicine
PROC: 5A1D00Z (ICD-10-PCS; principal; 2016-03-29)
DX: I13.2 Hypertensive heart and chronic kidney disease with heart failure and with stage 5 chronic kidney disease, or end stage renal disease (principal); N18.6 End stage renal disease; Z95.1 Presence of aortocoronary bypass graft; I50.9 Heart failure, unspecified; Z99.2 Dependence on renal dialysis; Z72.0 Tobacco use; I20.9 Angina pectoris, unspecified; E11.9 Type 2 diabetes mellitus without complications; E03.9 Hypothyroidism, unspecified; E78.5 Hyperlipidemia, unspecified; N40.0 Benign prostatic hyperplasia without lower urinary tract symptoms; E87.5 Hyperkalemia; E66.9 Obesity, unspecified; Z68.33 Body mass index [BMI] 33.0-33.9, adult
CPT/HCPCS: 36415; 71010; 80048; 80053; 82962; 83880; 84484; 85025; 85610; 85730; 90935; 93005; 93306; 96374; 96375; 96376; J1170; J1815; J2270; J2405

== ENCOUNTER → 2016-03-31 | Outpatient (CLI) | payer BC, OTHER ==
[~2016-03-31] MED LIST changes: +IODIXANOL LOCM 100 ML BTL ONE; +IODIXANOL LOCM 50 ML BTL ONE; +LACT1CAP17 PO; +SOD CHLORIDE 0.9% 100 ML ONE
--- NOTE | 2016-03-31 15:28 | RADRPT ---
PROCEDURE: US left upper extremity arterial system. CLINICAL INDICATION: Left upper extremity dialysis fistula with diminished for a. TECHNIQUE: Multiple longitudinal and transverse images of the left upper extremity arterial tree w as obtained with palma scale pulsed Doppler, and color Doppler imaging. COMPARISON: None available FINDINGS: The left subclavian artery, axillary artery, brachial artery, radial artery, and ulnar artery are al l normal. There is no thrombus or occlusion. There is normal triphasic flow throughout. There is a stenotic region with high velocity flow within the outflow vein. Velocity at this site i s 482 cm/sec and flow at this site is 427 ml/minute. A second region of stenosis is present in the o utflow vein with a velocity of 354 cm/sec and a flow of 184 ml/minute. There is normal triphasic flow throughout. Peak systolic velocities are as follows: Subclavian: 39 cm/sec Brachial: 253 cm/sec Mid brachial: 130 cm/sec Radial: 31 cm/sec Ulnar: 27 cm/sec IMPRESSION: 1. There are too stenotic regions in the outflow vein of the dialysis fistula as described above. 2. The arterial system of the left upper extremity is patent. RPTAT: QQ .Frank Tovar MD, MD Date Time Electronically viewed and signed by .Frank Tovar MD, on 03/31/2016 15:28 .R/
--- NOTE | 2016-04-03 15:51 | RADRPT ---
PROCEDURE: CT scan of the chest, abdomen, pelvis, and lower extremities with contrast. CT angiogra m of the chest, abdomen, pelvis, and lower extremities. CLINICAL INDICATION: Cough. Abdominal and pelvic pain. Bilateral lower extremity pain. TECHNIQUE: CT scan of the chest, abdomen, pelvis, and lower extremities with contrast was performe d with helical axial sections. The patient was scanned during intravenous administration of 125 ml of Visipaque 320. 2-D coronal reformatted images were obtained from the axial source images. In ad dition, 3-D post processing was performed. Total exam DLP is 1616.56 mGy-cm. CTDIvol is 46.95 mGy. One or more of the following dose reduction techniques were used: Automated exposure control, adju stment of the mA and/or kV according to patient size, use of iterative reconstruction technique. COMPARISON: 01/15/2016. FINDINGS: CT chest: There is atelectasis at both lung bases posteriorly. The lungs are otherwise clear with no other ai rspace or interstitial disease. There is no pulmonary nodule or mass lesion. There are sternal wir es and mediastinal clips from previous CABG. There is no mediastinal or hilar lymphadenopathy or ma ss. The heart is enlarged. There is no pericardial effusion. There are small bilateral pleural ef fusions. There is enlargement of the central pulmonary arteries consistent with pulmonary artery hy pertension. The pulmonary arteries are otherwise normal with no evidence of pulmonary artery emboli sm. There is no aortic aneurysm or dissection. There is calcification in the aorta consistent with atherosclerosis. There is a widely patent left-sided axillary femoral bypass graft extending from t he proximal left axillary artery to the left proximal superficial femoral artery. This is new when c ompared with the prior study from 01/15/2016. CT abdomen and pelvis: The liver is normal in size and diffusely decreased attenuation consistent with fatty metamorphosis. There is no focal hepatic lesion. The gallbladder is surgically absent with clips noted in the gallbladder bed. The bile ducts are no rmal. The spleen is normal in size. There is no focal splenic lesion. The pancreas is normal with no mass or evidence of pancreatitis. Both adrenals are normal with no enlargement or mass. Both kidneys are small and demonstrate a limited enhancement consistent with chronic renal failure. There is no solid renal mass or hydronephrosis. There are small benign bilateral renal cysts. Pr eviously noted right hydronephrosis is no longer present. There is no retroperitoneal lymphadenopathy or mass. The bowel and mesentery are normal. There is an inferior vena cava filter in satisfactory position w ith the superior tip below the level of the renal veins. There is no free fluid or free gas. There has been recent surgery with a midline wound vac noted. There is a probable hematoma in the root of the mesentery measuring approximately 3.1 x 6.5 x 9.6 cm in AP, transverse, and cranial caudal dimensions on image [id number]. Previously noted 15 x 10 cm left inguinal fluid collection consistent with large pseudoaneurysm is no longer present. Previously not ed aortal bifemoral bypass graft is also no longer present. Postoperative changes are present in bot h inguinal regions with surgical clips and small amount of postoperative fluid. The bladder and distal ureters are unremarkable. CT angiogram: The thoracic aorta demonstrates no aneurysm or dissection. The proximal abdominal aorta is widely patent. The mid abdominal aorta below the level of the renal arteries demonstrates severe stenosis. Extensive plaque is present in the mid and distal abdominal aorta with moderate stenosis distally. The celiac axis, superior mesenteric artery, and inferior mesenteric artery are all well seen and ap pear patent. There is calcification with mild stenosis. The renal arteries demonstrate moderate stenosis bilaterally. The right proximal common iliac artery demonstrates severe stenosis and is occluded distally. The r ight external iliac artery is completely occluded. The left common iliac artery and external iliac artery are completely occluded. The right superficial femoral artery appears completely occluded proximally to severe stenosis in th e midportion. A stent is present in the mid right superficial femoral artery extending distally. T his appears patent. The right popliteal artery is patent. Normal three-vessel runoff is present in the right calf. The left superficial femoral artery is patent proximally and there is a stent extending from the pro ximal to mid left superficial femoral artery. The distal left superficial femoral artery is patent with mild stenosis. The left popliteal artery is patent with mild stenosis. There is normal three- vessel runoff in the left calf. The osseous structures of the lower extremities are grossly normal. IMPRESSION: 1. Atelectasis at the lung bases posteriorly. 2. Enlargement of the central pulmonary arteries consistent with pulmonary artery hypertension. 3. Widely patent left axillary femoral bypass graft. 4. Fatty metamorphosis of the liver. 5. Status post cholecystectomy. 6. Small bilateral kidneys with limited enhancement and small cysts consistent with chronic renal f ailure. 7. Previously noted right hydronephrosis is no longer present. 8. IVC filter in satisfactory position. 9. Recent surgery with removal of the aortobifemoral bypass graft and evacuation of the hematoma in the left inguinal region. 10. Severe stenosis of the abdominal aorta below the level of the renal arteries. 11. Moderate stenosis of the renal arteries. 12. Completely occluded right superficial femoral artery and severe stenosis in the mid right super ficial femoral artery. Distal to the stenosis, a stent appears patent to the popliteal artery. 13. Normal right popliteal artery and three-vessel runoff. 14. Left superficial femoral artery is patent proximally and a stent is present in the proximal to mid left superficial femoral artery which appears patent. 15. Distal left superficial femoral artery is patent with mild stenosis. 16. Normal three-vessel runoff in the left calf. RPTAT: QQ .Frank Tovar MD, MD Date Time Electronically viewed and signed by .Frank Tovar MD, on 04/03/2016 15:50 .R/
== END | disposition home or self-care (01) ==
LOC: VAS 10:33
PROVIDERS: ATTEND Podiatrist Foot & Ankle Surgery
DX: T82.7XXD Infection and inflammatory reaction due to other cardiac and vascular devices, implants and grafts, subsequent encounter (principal); J98.11 Atelectasis; I27.2 Other secondary pulmonary hypertension; K76.0 Fatty (change of) liver, not elsewhere classified; I35.0 Nonrheumatic aortic (valve) stenosis; I70.1 Atherosclerosis of renal artery; N19 Unspecified kidney failure; N28.1 Cyst of kidney, acquired
CPT/HCPCS: 71275; 75635; 93931; Q9967

== ENCOUNTER 2016-07-20 22:34 | Inpatient (IN) | payer BC, OTHER ==
[~2016-07-20] VITALS: Ht 167.6 cm; Wt 100.2 kg
[~2016-07-20 22:34] MED LIST changes: -IODIXANOL LOCM 100 ML BTL ONE; -IODIXANOL LOCM 50 ML BTL ONE; -SOD CHLORIDE 0.9% 100 ML ONE
--- NOTE | 2016-07-20 22:43 | ERA ---
ER Documentation Chief Complaint Date/Time DATE: 07/20/16 TIME: 22:41 Chief Complaint pressure/burning CP int all day, constant tonight, radiates down left arm HPI Patient is a 61-year-old male who presents with gradual onset, intermittent, moderate, substernal sharp and burning chest pain for 2 days. He denies shortness of breath. He reports radiation to the left arm. She denies fever, vomiting. He does have mild dry cough. The patient had surgery for amputation of infected right great toe one week ago, and has a wound VAC. ROS All systems reviewed and are negative except as per history of present illness. Medications Home Meds Active Scripts Glipizide* (Glipizide*) 5 Mg Tablet, 5 MG PO AC BREAKFAST DINNER for 60 Days, TAB Prov:STACEY NEWTON 05/31/15 Hydrocodone Bit-Acetaminophen* ([place]*) 10-325 Mg Tablet, 1 TAB PO Q4H Y for PAIN, #20 TAB Prov:KAYLYN ORDAZ MD 02/20/15 Reported Medications Amoxicillin/Potassium Clav (Amox-Clav 500-125 mg Tablet) 500-125 mg Tab, 1 TAB PO Q8 for 20 Days, TAB 07/21/16 Clonazepam* (Clonazepam*) 1 Mg Tablet, 1 MG PO QHS Y for ANXIETY, TAB 07/21/16 Carvedilol* (Carvedilol*) 25 Mg Tablet, 25 MG PO BID, #60 TAB 07/21/16 Sertraline Hcl* (Zoloft*) 100 Mg Tablet, 100 MG PO DAILY, #30 TAB 07/21/16 Atorvastatin Calcium* (Atorvastatin Calcium*) 20 Mg Tablet, 20 MG PO QHS, #30 TAB 07/21/16 Aspirin* (Aspirin* EC) 81 Mg Tablet.dr, 81 MG PO DAILY, TAB 07/21/16 Levothyroxine Sodium* (Levothyroxine Sodium*) 75 Mcg Tablet, 75 MCG PO BEFORE BREAKFAST, #30 TAB 07/21/16 Hydroxyzine Hcl* (Hydroxyzine Hcl*) 50 Mg Tablet, 50 MG PO Q6H Y for ITCHING, # 30 TAB 07/21/16 Pantoprazole* (Protonix*) 40 Mg Tablet.dr, 40 MG PO DAILY, TAB 02/20/15 Gabapentin* (Gabapentin*) 300 Mg Capsule, 300 MG PO BID, CAP 03/17/14 Doxazosin Mesylate* (Doxazosin Mesylate*) 4 Mg Tablet, 4 MG PO DAILY, TAB 12/02/13 Sevelamer Hcl* (Renagel*) 800 Mg Tablet, 800 MG PO TID, TAB 09/10/13 Insulin Regular, Human (Humulin R) 100 Units/Ml Vial, SC HS, VIAL per sliding scale 09/10/13 Paroxetine Hcl* (Paroxetine*) 20 Mg Tablet, 20 MG PO DAILY, TAB 09/02/13 Discontinued Reported Medications Sitagliptin* (Januvia*) 50 Mg Tablet, 50 MG PO DAILY, TAB 03/17/14 Allopurinol* (Allopurinol*) 300 Mg Tablet, 300 MG PO DAILY, TAB 12/02/13 Beclomethasone Dip* (Qvar 80*) 7.3 Gm Inha, 1 PUFF INH BID, INH 12/02/13 Levothyroxine Sodium* (Levothyroxine Sodium*) 50 Mcg Tablet, 50 MCG PO AC BREAKFAST, TAB 12/02/13 Gemfibrozil* (Gemfibrozil*) 600 Mg Tablet, 600 MG PO DAILY, TAB 12/02/13 Hydroxyzine Hcl* (Hydroxyzine Hcl*) 25 Mg Tablet, 25 MG PO DAILY for ITCHING, TAB 12/02/13 Discontinued Scripts Lactobac Cmb #3/Fos/Pantethine (PROBIOTIC & ACIDOPHILUS CAP) 1 Each Capsule, 1 EACH PO BID, #30 CAP Prov:SRIRAM MARTÍNEZ MD 03/29/16 Alprazolam* (Xanax*) 1 Mg Tab, 1 MG PO BID Y for ANXIETY, #30 TAB Prov:STACEY NEWTON 05/31/15 Allergies Allergies: Coded Allergies: No Known Allergy (Unverified , 12/29/15) PER PT NOT ALLERGIC TO IRON ([facility]) PMhx/Soc Past medical history: Diabetes, hypertension, end-stage renal disease, CHF, coronary artery disease Past past surgical history: Amputation right foot, CABG, AV fistula Social history: Smokes 10-12 cigarettes a day, no alcohol. History of Surgery: Yes (CABG x2, cholecystectomy,Hernia repair,Lt AV fistula) Anesthesia Reaction: No Hx Neurological Disorder: No Hx Respiratory Disorders: Yes (COPD) Hx Cardiac Disorders: Yes (CABG) Hx Psychiatric Problems: No Hx Miscellaneous Medical Probl: No Hx Alcohol Use: No Hx Substance Use: No Hx Tobacco Use: Yes FmHx Family History: coronary disease, diabetes Physical Exam Vitals Vital Signs Date Time Temp Pulse Resp B/P Pulse Ox O2 Delivery O2 Flow Rate FiO2 07/21/16 01:47 98.5 81 15 126/51 100 Nasal Cannula 2.0 07/21/16 01:05 82 23 145/54 100 Nasal Cannula 07/21/16 00:38 90 19 125/60 96 Nasal Cannula 6.0 07/20/16 23:45 79 13 117/42 99 Room Air 07/20/16 22:38 98.8 81 20 119/56 100 Physical Exam Const: Alert, no acute distress Head: Atraumatic Eyes: Normal Conjunctiva, no pallor, no icterus ENT: Normal External Ears, Nose and Mouth. Moist mucous membranes Neck: Full range of motion..~ No meningismus. No JVD Resp: Clear to auscultation bilaterally Cardio: Regular rate and rhythm, no murmurs Abd: Soft, non tender, non distended. Normal bowel sounds Skin: No petechiae or rashes Back: No midline or flank tenderness Ext: 2+ pitting edema bilateral shins, right foot amputation with wound VAC in place, no erythema or warmth. Neur: Awake and alert, cranial nerves II through XII intact bilaterally, strength and sensation full in 4 extremities. Psych: Normal Mood and Affect Result Diagram: 07/20/16224407/20/162244 Results 24 hrs Laboratory Tests Test 07/20/16 22:45 White Blood Count 8.810^3/ul Red Blood Count 2.3910^6/ul Hemoglobin 7.5g/dl Hematocrit 25.2% Mean Corpuscular Volume 105.4fl Mean Corpuscular Hemoglobin 31.4pg Mean Corpuscular Hemoglobin Concent 29.8g/dl Red Cell Distribution Width 16.3% Platelet Count 14757^3/UL Mean Platelet Volume 9.6fl Neutrophils % 78.7% Lymphocytes % 13.0% Monocytes % 5.9% Eosinophils % 1.9% Basophils % 0.2% Nucleated Red Blood Cells % 0.0/100WBC Neutrophils # 6.910^3/ul Lymphocytes # 1.110^3/ul Monocytes # 0.510^3/ul Eosinophils # 0.210^3/ul Basophils # 0.010^3/ul Nucleated Red Blood Cells # 0.010^3/ul Prothrombin Time 14.3Sec Prothrombin Time Ratio 1.1 INR International Normalized Ratio 1.11 Activated Partial Thromboplast Time 32.4Sec D-Dimer 6120.00ng/ml D-Dimer Comment Sodium Level 140mmol/L Potassium Level 4.1mmol/L Chloride Level 98mmol/L Carbon Dioxide Level 30mmol/L Anion Gap 16 Blood Urea Nitrogen 25mg/dl Creatinine 4.56mg/dl Glucose Level 234mg/dl Calcium Level 8.0mg/dl Total Bilirubin 0.0mg/dl Direct Bilirubin 0.00mg/dl Indirect Bilirubin 0.0mg/dl Aspartate Amino Transf (AST/SGOT) 14IU/L Alanine Aminotransferase (ALT/SGPT) 19IU/L Alkaline Phosphatase 91IU/L Troponin I 0.042ng/ml B-Type Natriuretic Peptide 05313TW/ML Total Protein 6.7g/dl Albumin 3.5g/dl Globulin 3.20g/dl Albumin/Globulin Ratio 1.09 Current Medications Medications (Trade) Dose Ordered Sig/Romaine Route PRN Reason Start Time Stop Time Status Last Admin Dose Admin Morphine Sulfate (morphine) 4 mg ONCE STAT IV 07/20/16 23:02 07/20/16 23:03 DC 07/20/16 23:05 Morphine Sulfate (morphine) 4 mg ONCE STAT IV 07/20/16 23:47 07/20/16 23:48 DC 07/20/16 23:50 Nitroglycerin 1 inch 1 inch ONCE ONCE TD 07/21/16 01:30 07/21/16 01:31 DC 07/21/16 01:11 Sodium Chloride (NS) 100 ml @ ud STK-MED ONCE .ROUTE 07/21/16 01:24 07/21/16 01:25 DC 07/21/16 01:48 Iohexol (Omnipaque 300mg/ ml) 150 ml STK-MED ONCE .ROUTE 07/21/16 01:24 07/21/16 01:25 DC 07/21/16 01:47 Hydromorphone HCl (Dilaudid) 1 mg ONCE STAT IV 07/21/16 01:48 07/21/16 01:49 DC 07/21/16 01:54 Procedures/MDM EKG read by me: Time 2305, rate 75 Rhythm: Normal sinus [place]: Normal Intervals: Normal ST-T waves: ST depression with T-wave inversion in lateral and inferior leads. These are new compared to EKG on 03/30/2016. No ST elevation. Ectopy: No Q-waves: No Impression: ST depression with T-wave inversion in lateral and inferior leads is concerning for ischemia EKG read by me: Time 108, rate 80 Rhythm: Normal sinus [place]: Normal Intervals: Normal ST-T waves: ST depression with T-wave inversion in lateral leads, no significant change compared with prior Ectopy: No Q-waves: No Impression: Ischemic changes in lateral leads without significant change compared to prior. No ST elevation. MDM: Patient is a 61-year-old male who presents with acute chest pain. He was found to have new ST depression with T-wave inversions on his EKG, but troponin is not significantly elevated for patient who is on hemodialysis. Second troponin was sent and there is no dynamic elevation of troponin. The patient has had constant chest pain in the ER despite multiple doses of morphine and Dilaudid. The patient had recent surgery for amputation of infection in his right foot. Recent surgery raise concern for possible PE, so a d-dimer was sent and is elevated. CTPA shows no evidence of pulmonary embolism or aortic dissection. Patient is noted to have volume overload due to end-stage renal disease and CHF. His BNP is greater than 60,000. He also was found to have anemia with hemoglobin of 7.5. Stool occult blood was ordered. There is no report of dark or bloody stool. The patient will be admitted for further cardiac workup, inpatient hemodialysis after contrast administration and for volume overload, and will likely require blood transfusion. He was given aspirin prior to ER arrival, given Nitropaste in the ER. Heparin was withheld after the second troponin did not show elevation in due to concern for possible bleeding in a patient who is anemic and has had recent surgery. Case was discussed with Dr. Longoria, who will admit the patient in consult nephrology and cardiology. Departure Diagnosis: Primary Impression: Chest pain Qualified Code: R07.9 - Chest pain, unspecified type Additional Impressions: CHF (congestive heart failure) Qualified Code: I50.9 - Acute on chronic congestive heart failure, unspecified congestive heart failure type Volume overload Qualified Code: E87.79 - Other hypervolemia End stage renal disease Anemia Qualified Code: D64.9 - Anemia, unspecified type Condition: SHADY Roth MD July 20, 2016 22:43
[2016-07-20] MEDS ORDERED: morphine 4 MG/ML VIAL IV STA ×2 (23:02→23:47)
--- NOTE | 2016-07-20 23:41 | RADRPT ---
PROCEDURE: Chest. CLINICAL INDICATION: Chest pain. TECHNIQUE: Single frontal view of the chest was obtained. COMPARISON: 03/28/2016. FINDINGS: Mediasternotomy wires are present. The cardiac silhouette is enlarged. The aortic arch is calcifie d. There is mild pulmonary venous congestion. There is no focal consolidation or pleural effusion. There is no pneumothorax. There are old left-sided rib fractures. IMPRESSION: Cardiomegaly and mild pulmonary venous congestion. Aortic atherosclerosis. .Triston Villa MD, MD Date Time Electronically viewed and signed by .Triston Villa MD, MD on 07/20/2016 23:41 .T/
[2016-07-20 23:45] LABS: ADD SCAN DIFF NO
[2016-07-20 23:46] LABS: BASOPHILS % 0.2 % (0.0-2.0); EOSINOPHILS # 0.2 10^3/ul (0.0-0.5); EOSINOPHILS % 1.9 % (0.0-7.0); HEMATOCRIT 25.2 % (42.0-52.0); HEMOGLOBIN 7.5 g/dl (14.0-18.0); LYMPHOCYTES # 1.1 10^3/ul (0.8-2.9); MEAN CORPUSCULAR HEMOGLOBIN 31.4 pg (29.0-33.0); MEAN CORPUSCULAR HGB CONC 29.8 g/dl (32.0-37.0); MEAN CORPUSCULAR VOLUME 105.4 fl (82.0-101.0); MEAN PLATELET VOLUME 9.6 fl (7.4-10.4); MONOCYTE # 0.5 10^3/ul (0.3-0.9); MONOCYTES % 5.9 % (0.0-11.0); NEUTROPHIL # 6.9 10^3/ul (1.6-7.5); NEUTROPHILS % 78.7 % (39.0-77.0); PLATELET COUNT 125 10^3/UL (140-415); RED BLOOD COUNT 2.39 10^6/ul (4.70-6.10); RED CELL DISTRIBUTION WIDTH 16.3 % (11.5-14.5); WHITE BLOOD COUNT 8.8 10^3/ul (4.8-10.8)
[2016-07-21] VITALS (11 sets, daily range): BP systolic 119–137; BP diastolic 48–88; PULSE 58–78; RESP 17–19; TEMP 98.5; BMI 35.2
[2016-07-21 00:09] LABS: ALBUMIN 3.5 g/dl (3.3-4.9); ALBUMIN/GLOBULIN RATIO 1.09; CREATININE 4.56 mg/dl (0.61-1.24); POTASSIUM 4.1 mmol/L (3.5-5.1); TOTAL PROTEIN 6.7 g/dl (6.1-8.1)
[2016-07-21 00:20] LABS: TROPONIN-I 0.042 ng/ml (0.00-0.12)
[2016-07-21 00:35] LABS: INR 1.11; PROTIME 14.3 Sec (12.2-14.2); PT RATIO 1.1
[2016-07-21 00:36] LABS: PARTIAL THROMBOPLASTIN TIME 32.4 Sec (25.0-35.0)
[2016-07-21] MEDS ORDERED: SOD CHLORIDE 0.9% 100 ML ONE (01:24)
[2016-07-21] MEDS ORDERED: IOHEXOL 300MG/ML 150 ML BTL ONE (01:24)
[2016-07-21] MEDS ORDERED: LEVO75TA5 PO (01:28)
[2016-07-21] MEDS ORDERED: ASPI-664 PO (01:28)
[2016-07-21] MEDS ORDERED: HYDR-3012 PO (01:28)
[2016-07-21] MEDS ORDERED: NITROGLYCERIN 2% 1 GM OINT PKT TD ONE (01:30)
[2016-07-21] MEDS ORDERED: CARV25TA79 PO (01:39)
[2016-07-21] MEDS ORDERED: SERT100T PO (01:39)
[2016-07-21] MEDS ORDERED: CLON1TAB3 PO (01:39)
[2016-07-21] MEDS ORDERED: AMOX1TAB9 PO (01:39)
[2016-07-21] MEDS ORDERED: ATOR20TA38 PO (01:39)
[2016-07-21] MEDS ORDERED: HYDROmorphONE 1 MG/ML SYG IV STA (01:48)
--- NOTE | 2016-07-21 02:13 | RADRPT ---
PROCEDURE: CT angiogram of the chest with contrast. CLINICAL INDICATION: Chest pain. TECHNIQUE: CT angiogram of the chest was obtained using a multi-detector high-resolution CT. Con tiguous axial images were obtained during the dynamic injection of 100 cc of Omnipaque 300 intraveno us contrast. Coronal and sagittal reformatted images were obtained. 3-D reformatted images were al so obtained. Images were reviewed on a PACS workstation. One or more of the following dose reduction techniques were used: - Automated exposure control. - Adjustment of the mA and/or kV according to patient size. - Use of iterative reconstruction technique. Exam CTD/vol = 17.99 mGy. Total exam DLP = 785.34 mGy-cm. COMPARISON: 03/31/2016. FINDINGS: The main pulmonary artery followed to the segmental divisions are well opacified. There is no filli ng defect or evidence of pulmonary embolism. The heart is borderline in size. There is no pericard ial thickening or effusion. The aorta is of normal course and caliber with scattered atheroscleroti c calcifications. There is no evidence of aortic aneurysm or dissection. The stent is seen within t he left innominate artery. Mediasternotomy wires are present. The visualized thyroid is unremarkable. There are no enlarged a xillary lymph nodes. There are no enlarged mediastinal or hilar lymph nodes by CT criteria. There are small left and trace right-sided pleural effusions with underlying atelectasis. The central tra cheobronchial tree is within normal limits. Limited evaluation of the upper abdomen demonstrates severe stenosis of the infrarenal abdominal aor ta. The patient is status post cholecystectomy. There are bilateral axillary to common femoral byp ass grafts with trachea patent. IMPRESSION: No evidence of pulmonary embolism or aortic dissection. Vascular calcifications reflective of atherosclerosis. Small left and trace right-sided pleural effusion with underlying atelectasis. .Triston Villa MD, MD Date Time Electronically viewed and signed by .Triston Villa MD, MD on 07/21/2016 02:13 .T/
[2016-07-21] MEDS ORDERED: ONDANSETRON 4 MG INJ IV PRN ×2 (02:30→05:00)
[2016-07-21] MEDS ORDERED: ACETAMINOPHEN 325 MG TAB PO PRN ×2 (02:30→05:00)
[2016-07-21] MEDS: HYDROmorphONE 1 MG/ML SYG IV PRN ×3 (04:56→16:40)
[2016-07-21] MEDS ORDERED: NITROGLYCERIN (SL) 0.4 MG TAB SL PRN (05:00)
[2016-07-21] MEDS ORDERED: BISACODYL (EC) 5 MG TAB PO PRN (05:00)
[2016-07-21] MEDS ORDERED: DOCUSATE SODIUM 100 MG CAP PO PRN (05:00)
[2016-07-21] MEDS ORDERED: NACL 0.9% 3 ML SYG IV SCH (05:00)
--- NOTE | 2016-07-21 05:56 | HP ---
Date/Time of Note Date/Time of Note DATE: 07/21/16 TIME: 05:11 Assessment/Plan VTE Prophylaxis VTE Prophylaxis Intervention: contraindicated VTE Contraindication Reason: amputee, sx procedure on lower extremity Lines/Catheters IV Catheter Type (from Nrsg): Saline Lock Assessment/Plan Chief Complaint/Hosp Course This is a 61-year-old male being admitted to the telemetry floor for: #1 chest pain: EKGs 2 did show some dynamic changes compared to previous EKG with new ST segment depressions. Patient's troponins first set was 0.042 and second set was 0.040. At the current time we will continue to trend troponins as patient's chest pain has subsided. Will continue to monitor the patient and anticoagulation at this time is likely not indicated. Will consult cardiology for further treatment strategy. Will order a 2D echocardiogram. His previous echocardiogram in March showed an ejection fraction of approximately 35-40%. Will keep patient n.p.o. except for meds in case cardiology would like to do any intervention. CTA was negative for PE. #2 end-stage renal disease: Patient did not undergo a full dialysis treatment yesterday secondary to becoming hypotensive. Will consult nephrology for further management. Patient likely will also need a blood transfusion and if he does undergo dialysis he can get it at that time. #3 anemia: Patient's hemoglobin today is 7.5 upon looking at previous records his hemoglobin generally was greater than 10. There is no overt signs of bleeding right now though he did have recent surgery. We will also order an occult stool at this time. We will trend his H&H every 6. Will also order type and screen. Patient likely will need at least a unit of PRBC secondary to his cardiac history. Will defer further transfusion decision to nephrology if the patient indeed goes to dialysis. Check iron studies. Consider procrit. #4 right foot toe amputation 5: Patient is status post right total 5 amputation approximately 1 week ago. He had a wound VAC change yesterday however he states that since the wound VAC change he is experiencing a lot more pain. Will consult vascular surgery for further management recommendations. #5 diabetes mellitus: We will place patient on insulin sliding scale. #6 abdominal wall wound: Will consult wound care for continued management of patient's abdominal surgical wound. Patient has been receiving treatment as an outpatient for the wound. #7 Hypothyroidism: Continue Synthroid we will recheck a TSH #8: Anxiety: We will continue Paxil at this time. Patient also has Zoloft on his med rec however patient does not recall all of his medications. will clarify medications in the a.m. with the patient. #9 DVT GI prophylaxis: At the current time secondary to patient's anemia as well as recent amputation will defer chemical anticoagulation at this time will consider SCDs if cleared by vascular surgery, famotidine Further treatment strategy will be implemented as per the clinical course. Will need to clarify patient's home medications with the patient as he does not presently recall all their names at this time. Problems: HPI/ROS Admit Date/Time Admit Date/Time July 21, 2016 at 02:28 Hx of Present Illness Chief complaint: Chest pain 1 day, right foot pain This is a 61-year-old male with an extensive medical history of end-stage renal disease, diabetes, coronary artery disease status post CABG, right toe 5 amputation presents to the ED with 2 days of chest pain and 1 day of foot pain. Patient states that he started experiencing chest pain left-sided that radiated down his his left arm on Monday. The pain was sharp in nature. He does state he did experience some shortness of breath. Denies any diaphoresis. On Monday he went in the morning to have his wound VAC in his right lower extremity change. After that he went to dialysis however at dialysis he did not undergo the full dialysis as his blood pressure was becoming low. He went home and he continued to have the chest pain and then he noticed more so the pain in his right foot after the wound VAC change and that was what led him to the hospital. At the current time patient states that he still has the pain in his right foot. His chest pain has subsided after the pain medications as well as a nitro patch. Allergies: NKDA Medications: See JIM LEONE Const: As per HPI Eyes : No pain discharge or redness or change in visual acuity ENT: No pain, sore throat, congestion, congestion, dysphagia or discharge Respiratory: As per HPI Cardiovascular: As per HPI GI : no change in appetite, abdominal pain, nausea, vomiting, diarrhea, constipation, or change in the color his stool Genitourinary: No dysuria, hematuria, flank pain , discharge or CVA tenderness Musculoskeletal: As per HPI Skin: As per HPI Neuro: No headache, dizziness, syncope, seizure, focal weakness Endocrine: No polyuria, polydipsia, temperature intolerance Psych: No hallucination, depression, anxiety or suicidal ideation PMH/Family/Social Past Medical History CHF, diabetes, end-stage renal disease on dialysis, hypothyroidism, hypertension, dyslipidemia, BPH and 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 Past Surgical History Coronary artery bypass graft, aortobifemoral bypass, AV fistula, right foot toe amputation 5 done 1 week ago, status post wound VAC change yesterday with right lower extremity Family History Significant Family History: diabetes (Mom), hypertension (Mom) Social History Smoking Status: Current every day smoker (Half pack per day 46 years) Exam/Review of Systems Vital Signs Vitals Vital Signs Date Time Temp Pulse Resp B/P Pulse Ox O2 Delivery O2 Flow Rate FiO2 07/21/16 04:36 98.3 70 17 129/63 97 07/21/16 03:53 Nasal Cannula 2.0 Exam Exam General: This is an obese male sitting in bed in mild distress from pain.. HEENT: Atraumatic, normocephalic. The pupils are equal, round and reactive. Extraocular motor are intact Neck: Supple with full range of motion. No rigidity or meningismus Lungs: Mild crackles at the bases Heart: Systolic murmur at the second right intercostal space radiating to the carotid Abdomen: Soft , nontender, nondraining wound at site of prior surgical incision. Extremities: Right foot toe amputation 5, wound VAC in place, left upper extremity AV fistula. Neurologic: Normal mental status, speech normal, cranial nerves II through XII are intact, motor and sensory are intact, no focal weakness Skin: Surgical scar from previous surgery with anterior chest wall, please see abdomen and extremity exam for additional information. Additional Comments EKG #1: Time 2305, rate 75 Rhythm: Normal sinus [place]: Normal Intervals: Normal ST-T waves: ST depression with T-wave inversion in lateral and inferior leads. These are new compared to EKG on 03/30/2016. No ST elevation. Impression: ST depression with T-wave inversion in lateral and inferior leads is concerning for ischemia EKG #2: Time 0108, rate 80 Rhythm: Normal sinus [place]: Normal Intervals: Normal ST-T waves: ST depression with T-wave inversion in lateral leads, no significant change compared with prior Impression: Ischemic changes in lateral leads without significant change compared to prior. No ST elevation Above reviewed with ED physician. PROCEDURE: Chest. CLINICAL INDICATION: Chest pain. TECHNIQUE: Single frontal view of the chest was obtained. COMPARISON: 03/28/2016. FINDINGS: Mediasternotomy wires are present. The cardiac silhouette is enlarged. The aortic arch is calcified. There is mild pulmonary venous congestion. There is no focal consolidation or pleural effusion. There is no pneumothorax. There are old left-sided rib fractures. IMPRESSION: Cardiomegaly and mild pulmonary venous congestion. Aortic atherosclerosis. .Triston Villa MD, MD Date Time Electronically viewed and signed by .Triston Villa MD, on 07/20/2016 23:41 PROCEDURE: CT angiogram of the chest with contrast. CLINICAL INDICATION: Chest pain. TECHNIQUE: CT angiogram of the chest was obtained using a multi-detector high -resolution CT. Contiguous axial images were obtained during the dynamic injection of 100 cc of Omnipaque 300 intravenous contrast. Coronal and sagittal reformatted images were obtained. 3-D reformatted images were also obtained. Images were reviewed on a PACS workstation. One or more of the following dose reduction techniques were used: - Automated exposure control. - Adjustment of the mA and/or kV according to patient size. - Use of iterative reconstruction technique. Exam CTD/vol = 17.99 mGy. Total exam DLP = 785.34 mGy-cm. COMPARISON: 03/31/2016. FINDINGS: The main pulmonary artery followed to the segmental divisions are well opacified. There is no filling defect or evidence of pulmonary embolism. The heart is borderline in size. There is no pericardial thickening or effusion. The aorta is of normal course and caliber with scattered atherosclerotic calcifications. There is no evidence of aortic aneurysm or dissection. The stent is seen within the left innominate artery. Mediasternotomy wires are present. The visualized thyroid is unremarkable. There are no enlarged axillary lymph nodes. There are no enlarged mediastinal or hilar lymph nodes by CT criteria. There are small left and trace right- sided pleural effusions with underlying atelectasis. The central tracheobronchial tree is within normal limits. Limited evaluation of the upper abdomen demonstrates severe stenosis of the infrarenal abdominal aorta. The patient is status post cholecystectomy. There are bilateral axillary to common femoral bypass grafts with trachea patent. IMPRESSION: No evidence of pulmonary embolism or aortic dissection. Vascular calcifications reflective of atherosclerosis. Small left and trace right-sided pleural effusion with underlying atelectasis. .Triston Villa MD, MD Date Time Electronically viewed and signed by .Triston Vilal MD, on 07/21/2016 02:13 Labs Result Diagram: 07/20/16 2245 07/20/165 Medications Medications Current Medications Ondansetron HCl (Zofran Inj) 4 mg Q6H PRN IV NAUSEA AND/OR VOMITING; Start at 05:00 Nitroglycerin (Nitroglycerin (Sl Tab) 0.4 Mg) 1 tab Q5M PRN SL CHEST PAIN; Start 07/21/16 at 05:00 Acetaminophen (Tylenol Tab) 650 mg Q6H PRN PO PAIN LEVEL 1-3 OR FEVER; Start at 05:00 Hydromorphone HCl (Dilaudid) 0.5 mg Q4H PRN IV PAIN LEVEL 7-10 Last administered on 07/21/16t 04:56; Admin Dose 0.5 MG; Start 07/21/16 at 05:00 Docusate Sodium (Colace) 100 mg Q12H PRN PO CONSTIPATION; Start 07/21/16 at 05: 00 Bisacodyl (Dulcolax) 5 mg DAILY PRN PO CONSTIPATION; Start 07/21/16 at 05:00 Famotidine (Pepcid Iv) 20 mg DAILY IV ; Start 07/21/16 at 09:00 ANNEMARIE ABDI July 21, 2016 05:23
[2016-07-21] MEDS ORDERED: DEXTROSE 50% 50 ML SYRINGE IV PRN ×2 (06:00)
[2016-07-21] MEDS ORDERED: hydrOXYzine HCL 25 MG TAB PO PRN (06:00)
[2016-07-21] MEDS ORDERED: GLUCOSE GEL 15 GRAM TUBE BUCCAL PRN (06:00)
[2016-07-21] MEDS ORDERED: GLUCOSE GEL 15 GRAM TUBE PO PRN ×2 (06:00)
[2016-07-21] MEDS ORDERED: GLUCAGON 1 MG INJ IM PRN (06:00)
[2016-07-21] MEDS: LEVOTHYROXINE 75 MCG TAB PO SCH (07:13)
[2016-07-21] MEDS: SEVELAMER 800 MG TAB PO SCH ×3 (07:37→17:15)
[2016-07-21] MEDS: FAMOTIDINE 20 MG INJ IV SCH (08:25)
[2016-07-21] MEDS: PAROXETINE 20 MG TAB PO SCH (08:26)
[2016-07-21] MEDS: GABAPENTIN 300 MG CAP PO SCH ×2 (08:26→20:57)
[2016-07-21] MEDS: INSULIN ASPART [NOVOLOG] 3 ML PEN SC SCH ×5 (09:00→20:59)
[2016-07-21 09:58] LABS: ADD SCAN DIFF NO
[2016-07-21 10:16] LABS: BASOPHILS % 0.3 % (0.0-2.0); EOSINOPHILS # 0.2 10^3/ul (0.0-0.5); EOSINOPHILS % 2.6 % (0.0-7.0); LYMPHOCYTES # 1.1 10^3/ul (0.8-2.9); LYMPHOCYTES % 16.1 % (15.0-51.0); MEAN CORPUSCULAR HEMOGLOBIN 30.8 pg (29.0-33.0); MEAN CORPUSCULAR HGB CONC 29.2 g/dl (32.0-37.0); MEAN CORPUSCULAR VOLUME 105.7 fl (82.0-101.0); MEAN PLATELET VOLUME 10.2 fl (7.4-10.4); MONOCYTE # 0.5 10^3/ul (0.3-0.9); MONOCYTES % 7.5 % (0.0-11.0); NEUTROPHIL # 5.1 10^3/ul (1.6-7.5); NEUTROPHILS % 73.2 % (39.0-77.0); PLATELET COUNT 118 10^3/UL (140-415); RED BLOOD COUNT 2.27 10^6/ul (4.70-6.10); RED CELL DISTRIBUTION WIDTH 16.3 % (11.5-14.5)
[2016-07-21 10:26] LABS: IRON 46 ug/dl (35-150)
[2016-07-21 10:27] LABS: PHOSPHORUS 5.2 mg/dl (2.5-4.9)
[2016-07-21 10:29] LABS: ALBUMIN 3.1 g/dl (3.3-4.9)
[2016-07-21 10:32] LABS: ALBUMIN/GLOBULIN RATIO 0.93; CALCIUM 7.9 mg/dl (8.4-10.2); CREATININE 5.56 mg/dl (0.61-1.24); TOTAL PROTEIN 6.4 g/dl (6.1-8.1)
[2016-07-21 10:33] LABS: MAGNESIUM 1.8 mg/dl (1.7-2.5)
[2016-07-21 10:36] LABS: CK-MB 0.37 ng/ml (0.0-2.4); TOTAL IRON BINDING CAPACITY 188 ug/dl (241-421)
[2016-07-21 10:39] LABS: TROPONIN-I 0.036 ng/ml (0.00-0.12)
[2016-07-21] MEDS ORDERED: SOD CHLORIDE 0.9% 250 ML IV* ONE (12:54)
[2016-07-21] MEDS ORDERED: AMOXICILLIN/CLAV 875 MG TAB PO SCH (14:00)
--- NOTE | 2016-07-21 14:02 | CONS ---
Date/Time of Note Date/Time of Note DATE: 07/21/16 TIME: 13:50 Assessment/Plan Assessment/Plan Chief Complaint/Hosp Course - ESRD on Hemodialysis MWF - Recent Hx of toe Amputation @ [facility] - CAD / Post CABG - DM / DM Nephropathy - Severe PVD - Anemia PLAN: - Will arrange for Dialysis in AM - Not fluid overloaded at this point - Agree with 2 units of PRBC on dialysis in AM - EPOGEN - IV IRON - PAIN CONTROL - Continue his Vancomycin as was scheduled post surgery from [facility] THANK YOU V. MUCH Problems: Consultation Date/Type/Reason Admit Date/Time July 21, 2016 at 02:28 Date of Consultation: July 21, 2016 Type of Consultation: NEPHROLOGY Reason for Consultation - ESRD on Hemodialysis MWF Constitutional: no complaints Eyes: no complaints ENT: no complaints Respiratory: no complaints Cardiovascular: chest pain Gastrointestinal: no complaints Genitourinary: no complaints Past Medical History - ESRD on Hemodialysis - DM - Severe PVD - Anemia - HTN - Long Hx of Smoking Past Surgical History - CAD/PVD Social History Alcohol Use: none Smoking Status: Current every day smoker (Half pack per day 46 years) Drug Use: none Exam/Review of Systems Vital Signs Vitals Vital Signs Date Time Temp Pulse Resp B/P Pulse Ox O2 Delivery O2 Flow Rate FiO2 07/21/16 12:15 58 07/21/16 11:04 98.1 19 126/60 99 07/21/16 10:02 Nasal Cannula 2.0 Exam Constitutional: alert, oriented Psych: no complaints Head: normocephalic Eyes: nl conjunctiva Neck: supple Respiratory: crackles/rales Cardiovascular: regular rate and rhythm, systolic murmur Gastrointestinal: soft Results Result Diagram: 07/21/16 0938 07/21/16 0938 Results 24 hrs Laboratory Tests Test 07/20/16 22:45 07/21/16 03:00 07/21/16 09:04 07/21/16 09:38 White Blood Count 8.8 # 7.0 # Red Blood Count 2.39 #L 2.27 L Hemoglobin 7.5 #L 7.0 L Hematocrit 25.2 #L 24.0 L Mean Corpuscular Volume 105.4 H 105.7 H Mean Corpuscular Hemoglobin 31.4 30.8 Mean Corpuscular Hemoglobin Concent 29.8 L 29.2 L Red Cell Distribution Width 16.3 #H 16.3 H Platelet Count 125 L 118 L Mean Platelet Volume 9.6 # 10.2 Neutrophils % 78.7 H 73.2 Lymphocytes % 13.0 L 16.1 Monocytes % 5.9 7.5 Eosinophils % 1.9 2.6 Basophils % 0.2 0.3 Nucleated Red Blood Cells % 0.0 0.0 Neutrophils # 6.9 5.1 Lymphocytes # 1.1 1.1 Monocytes # 0.5 0.5 Eosinophils # 0.2 0.2 Basophils # 0.0 0.0 Nucleated Red Blood Cells # 0.0 0.0 Prothrombin Time 14.3 H Prothrombin Time Ratio 1.1 INR International Normalized Ratio 1.11 Activated Partial Thromboplast Time 32.4 D-Dimer 6120.00 H D-Dimer Comment Sodium Level 140 143 Potassium Level 4.1 4.0 Chloride Level 98 96 L Carbon Dioxide Level 30 31 Anion Gap 16 20 H Blood Urea Nitrogen 25 H 31 H Creatinine 4.56 H 5.56 H Glucose Level 234 H 137 # Calcium Level 8.0 L 7.9 L Total Bilirubin 0.0 L 0.0 L Direct Bilirubin 0.00 0.00 Indirect Bilirubin 0.0 0.0 Aspartate Amino Transf (AST/SGOT) 14 L 13 L Alanine Aminotransferase (ALT/SGPT) 19 14 Alkaline Phosphatase 91 80 Troponin I 0.042 0.040 0.036 B-Type Natriuretic Peptide 01851 H Total Protein 6.7 6.4 Albumin 3.5 3.1 L Globulin 3.20 3.30 H Albumin/Globulin Ratio 1.09 0.93 Bedside Glucose 135 Hemoglobin A1c 6.3 H Phosphorus Level 5.2 H Magnesium Level 1.8 Iron Level 46 Total Iron Binding Capacity 188 L Percent Iron Saturation 24 Ferritin 885.0 H Creatine Kinase 22 L Creatine Kinase Index 1.7 Creatinine Kinase MB (Mass) 0.37 Thyroid Stimulating Hormone (TSH) 4.600 Test 07/21/16 12:18 Bedside Glucose 264 H Medications Medications Current Medications Ondansetron HCl (Zofran Inj) 4 mg Q6H PRN IV NAUSEA AND/OR VOMITING; Start at 05:00 Acetaminophen (Tylenol Tab) 650 mg Q6H PRN PO PAIN LEVEL 1-3 OR FEVER; Start at 05:00 Hydromorphone HCl (Dilaudid) 0.5 mg Q4H PRN IV PAIN LEVEL 7-10 Last administered on 07/21/16 09:00; Admin Dose 0.5 MG; Start 07/21/16 at 05:00 Docusate Sodium (Colace) 100 mg Q12H PRN PO CONSTIPATION; Start 07/21/16 at 05: 00 Bisacodyl (Dulcolax) 5 mg DAILY PRN PO CONSTIPATION; Start 07/21/16 at 05:00 Famotidine (Pepcid Iv) 20 mg DAILY IV Last administered on 07/21/16 08:25; Admin Dose 20 MG; Start 07/21/16 at 09:00 Atorvastatin Calcium (Lipitor) 20 mg QHS PO ; Start 07/21/16 at 21:00 Carvedilol (Coreg) 25 mg BID PO Last administered on 07/21/16 08:26; Admin Dose 25 MG; Start 07/21/16 at 09:00 Clonazepam (Klonopin) 1 mg QHS PRN PO ANXIETY; Start 07/21/16 at 06:00 Doxazosin Mesylate (Cardura) 4 mg DAILY@21 PO ; Start 07/21/16 at 21:00 Gabapentin (Neurontin) 300 mg BID PO Last administered on 07/21/16 08:26; Admin Dose 300 MG; Start 07/21/16 at 09:00 Hydroxyzine HCl (Atarax) 50 mg Q6H PRN PO ITCHING; Start 07/21/16 at 06:00 Paroxetine HCl (Paxil) 20 mg DAILY PO Last administered on 07/21/16 08:26; Admin Dose 20 MG; Start 07/21/16 at 09:00 Insulin Aspart (Novolog Insulin Pen) NOVOLOG *MILD* ALGORI... Q4 SC Last administered on 07/21/16 12:32; Admin Dose 4 UNIT; Start 07/21/16 at 09:00; Stop 07/21/16 at 17:00 Miscellaneous Information 1 ea NOTE XX ; Start 07/21/16 at 06:00 Glucose (Glutose) 15 gm Q15M PRN PO DECREASED GLUCOSE; Start 07/21/16 at 06:00 Glucose (Glutose) 22.5 gm Q15M PRN PO DECREASED GLUCOSE; Start 07/21/16 at 06: 00 Dextrose (D50w Syringe) 25 ml Q15M PRN IV DECREASED GLUCOSE; Start 07/21/16 at 06:00 Dextrose (D50w Syringe) 50 ml Q15M PRN IV DECREASED GLUCOSE; Start 07/21/16 at 06:00 Glucagon (Glucagen) 1 mg Q15M PRN IM DECREASED GLUCOSE; Start 07/21/16 at 06:00 Glucose (Glutose) 15 gm Q15M PRN BUCCAL DECREASED GLUCOSE; Start 07/21/16 at 06 :00 Diagnostic Test (Pha) (Accu-Chek) 1 ea 02 XX ; Start 07/22/16 at 02:00 Amoxicillin/ Clavulanate Potassium (Augmentin) 875 mg BID PO Last administered on 07/21/16t 13:41; Admin Dose 875 MG; Start 07/21/16 at 14:00 GER BOWMAN MD July 21, 2016 14:02
[2016-07-21] MEDS ORDERED: VANCOMYCIN IVPB SCH (14:30)
[2016-07-21] MEDS ORDERED: SOD CHLORIDE 0.9% IVPB SCH (14:30)
[2016-07-21 15:49] LABS: IRON 34 ug/dl (35-150)
[2016-07-21 15:58] LABS: TOTAL IRON BINDING CAPACITY 189 ug/dl (241-421)
[2016-07-21] MEDS ORDERED: VANCOMYCIN 2 GM in SOD CHLORIDE 0.9% 500 ML IVPB SCH (16:00)
[2016-07-21] MEDS: EPOETIN 4000 UNITS/1 ML INJ (ESRD) SC SCH (16:45)
[2016-07-21] MEDS ORDERED: INSULIN ASPART [NOVOLOG] 3 ML PEN SC SCH (17:25)
[2016-07-21 17:27] LABS: CK-MB 0.47 ng/ml (0.0-2.4); TROPONIN-I 0.024 ng/ml (0.00-0.12)
[2016-07-21] MEDS ORDERED: HYDROmorphONE 1 MG/ML SYG IV PRN (18:00)
--- NOTE | 2016-07-21 20:01 | CONS ---
DATE OF ADMISSION: 07/21/2016 DATE OF CONSULTATION: 07/21/2016 REASON FOR CONSULTATION: Positive troponin, chest pain, assess for true acute coronary syndrome. REQUESTING PHYSICIAN: Dr. Abdi from the hospitalist service. HISTORY OF PRESENT ILLNESS: Mr. Saleem is a 61-year-old male known to myself from prior hospital admissions and office patient who had a history of congestive heart failure, cardiomyopathy, decreas ed left ventricular ejection fraction, last estimated approximately at 35% to 40% by echo March 25, diabetes, endstage renal disease on hemodialysis, hypothyroidism, hypertension, dyslipidemia, pe ripheral arterial disease, status post prior aortobifemoral graft and then most recently right trans metatarsal amputation, coronary artery disease status post coronary artery bypass graft, who initial ly presented with complaints of substernal chest pain described as a burning-like sensation and stab basil, some pressure-like component as well as pain in the foot. Upon arrival, temperature 98.8, blo od pressure 119/56, pulse 80, respiratory rate 20, saturating 100%. The patient's labs revealed a w alexandra count of 8.8, hemoglobin 7.5, platelet count of 125. Sodium of 140, potassium 4.1, creatinine of 4.6, BUN 25, AST 14, ALT 19. Troponin negative. BNP of 63,500. INR of 1.1. The patient underw ent a chest x-ray revealing cardiomegaly, mild pulmonary venous congestion. The patient's electroca rdiogram revealed normal sinus rhythm and a rate of 80, normal axis, normal intervals with inferior and lateral biphasic T-wave abnormalities. Patient subsequently admitted to the floor, and since ad dara to floor additionally underwent a CT/CTA revealing no evidence of pulmonary embolism, aortic dis section, small left and trace right-sided pleural effusions. The patient has been continuously paulie tored on telemetry revealing sinus rhythm, no significant arrhythmias or pauses. The patient states he has had some recurrent burning chest pain today. PAST MEDICAL HISTORY: As above in HPI. MEDICATIONS CURRENTLY IN HOSPITAL: 1. Lipitor 20 mg at bedtime. 2. Cardura 4 mg daily. 3. Lantus 10 mg subcutaneous daily. 4. Dilaudid p.r.n. 5. . 6. Vancomycin. 7. Carvedilol 25 mg p.o. b.i.d. 8. Neurontin 20 mg b.i.d. 9. Paxil 20 mg daily. 10. Renagel 800 mg with meals. 11. Synthroid 75 mcg daily. 12. Klonopin 1 mg at bedtime p.r.n. 13. Hydroxyzine 50 mg q.6 p.r.n. 14. Tylenol p.r.n. 15. Colace p.r.n. 16. Dulcolax p.r.n. ALLERGIES: NO KNOWN DRUG ALLERGIES. SOCIAL HISTORY: Positive tobacco. No ETOH or illicit drug use. FAMILY HISTORY: Negative for sudden cardiac or early CAD. REVIEW OF SYSTEMS: Limited, as above in HPI. CONSTITUTIONAL: No fevers, chills. PULMONARY: Mild shortness of breath. CARDIOVASCULAR: Chest pain. GASTROINTESTINAL: No vomiting. GENITOURINARY: No hematuria. MUSCULOSKELETAL: Degenerative joint disease. Peripheral arterial disease status post transmetatars al amputation. PSYCHIATRIC: Patient has depression. ENDOCRINE: Hypothyroidism and diabetes mellitus. PHYSICAL EXAMINATION: VITAL SIGNS: Temperature of 98, blood pressure 119/48, pulse 60, respirations 19, saturation 97%. GENERAL: Patient is alert, awake and complaining of some intermittent chest pain. NECK: JVP approximately 9 cm of water. CHEST: Fair air movement throughout. HEART: Regular rate and rhythm. Normal S1, S2, I/ systolic murmur, nondisplaced PMI. ABDOMEN: Positive bowel sounds, soft. EXTREMITIES: Trace edema. Status post right transmetatarsal amputation with wound VAC in place. L eft foot with erythema of the toes. LABORATORIES: Most recent, white count is 7.0, hemoglobin 7.0, platelet count of 118. IMAGING STUDIES: As above in HPI. No further imaging studies for my review at this time. ECG: As above in HPI. No further electrocardiograms for my review at this time. IMPRESSION: 1. Chest pain, assess for acute coronary syndrome. 2. Abnormal electrocardiogram, assess for acute coronary syndrome. 3. History of coronary artery disease, status post coronary artery bypass graft surgery. 4. Cardiomyopathy, decreased left ventricular ejection fraction last time approximately 35% to 40% by echo 03/2016. 5. Hypertension. 6. Dyslipidemia. 7. Peripheral arterial disease, status post right transmetatarsal amputation. 8. Possible cellulitis of the left foot. 9. End-stage renal disease on hemodialysis. 10. Anemia, macrocytic. RECOMMENDATIONS: 1. At this time, would maintain the patient on telemetry monitoring to follow rhythm and rate contr ol closely. 2. Recheck serial EKGs to assess for any significant ongoing changes. EKG in the morning, EKG for complaints of chest pain or change in rhythm. 3. Continue the patient's current carvedilol for control of blood pressure and will initiate the pa tient on PEDRO inhibitor for afterload reduction. Following sodium closely. 4. Hemodialysis for volume removal. 5. Continue the patient's antibiotic therapy and follow up all culture data. 6. Continue the patient's current statin therapy and adjust it according to a fasting lipid panel a s checked. 7. Complete the patient's rule out for myocardial infarction. If patient rules out for myocardial infarction, I believe this patient would benefit from further inpatient risk stratification with car diac stress test which thus can be scheduled to take place in the morning. Thank you for allowing me to take part in the care of this patient. I will continue to follow along very closely with you. Further recommendations will be made as the patient progresses through the inpatient hospital clinical course. Dictated By: TOMAS QUINONES/ROD Conf#: [id number] DID#: [id number] CC: ANNEMARIE ABDI MD;*EndCC*
[2016-07-21] MEDS: ATORVASTATIN 20 MG TAB PO SCH (20:57)
[2016-07-21] MEDS: DOXAZOSIN 4 MG TAB PO SCH (20:57)
[2016-07-21] MEDS: ISOSORBIDE DINITRATE 10 MG TAB PO SCH (20:57)
[2016-07-21] MEDS ORDERED: AMOXICILLIN/CLAV 500 MG TAB PO SCH (21:00)
[2016-07-21] MEDS: INSULIN GLARGINE [LANtus] 3 ML PEN SC SCH (21:00)
[2016-07-21] MEDS ORDERED: VANCOMYCIN IV PER PHARMACY XX SCH (21:30)
[2016-07-21] MEDS: morphine 4 MG/ML VIAL IV PRN (22:32)
--- NOTE | 2016-07-21 22:34 | CONS ---
Date/Time of Note Date/Time of Note DATE: 07/21/16 TIME: 22:28 Assessment/Plan Assessment/Plan Problems: (1) Diabetes, polyneuropathy (2) Acquired absence of right foot (3) Peripheral vascular disease (4) Foot osteomyelitis Status: Acute (5) Family history of cardiac disorder (6) Family history of endocrine and metabolic disease Additional Assessment/Plan I will consult the wound nurse for proper application of wound VAC to the right foot. The wound VAC needs to be changed every 48 hours. Patient is to remain nonweightbearing on the right foot. Vascular supply to the right lower extremity must be evaluated. I recommend vascular surgery consultation. Pending vascular perfusion of the right foot, patient may require revision of the amputation and debridement of necrotic tissues. He is at increased risk for limb loss in the right lower extremity. Prognosis is poor. Patient will be followed in-house. Thank you very much again for involving me in the care of this patient. For discharge planning, patient can be followed up at the amputation prevention center upon discharge. At this point, further testing is necessary and he may require further surgical management. Consultation Date/Type/Reason Admit Date/Time July 21, 2016 at 02:28 Date of Consultation: July 21, 2016 Type of Consultation: Foot and ankle surgery Reason for Consultation Evaluation of right foot open TMA Hx of Present Illness Thank you very much for your kind consultation. As you very well know this is a 61-year-old male patient who was admitted to the hospital secondary to chest pain, end-stage renal disease, anemia, diabetes mellitus, recent transmetatarsal amputation of the right foot about a week ago. I was consulted for evaluation and treatment. Patient currently has a wound VAC attached to the right foot. Patient apparently is experiencing a lot more pain after the wound VAC was applied. Vascular surgery was also consulted. Denies fever, chills, nausea or vomiting. Past medical history significant for end-stage renal disease, diabetes, coronary artery disease status post CABG, recent amputation of right foot as an open TMA. Constitutional: no complaints, No chills, No diaphoresis, No disoriented, No febrile, No improved, No other , No poor po, No requiring IVF, No requiring O2 Eyes: no complaints, No discharge, No other, No pain, No redness, No visual change ENT: no complaints, No bleeding, No congestion, No discharge, No dysphagia, No other, No pain, No sore throat Respiratory: no complaints, No cough, No other, No pain, No pleuritic pain, No shortness of breath, No sputum, No wheezing Cardiovascular: chest pain, No edema, No lightheadedness, No no complaints, No orthopenea, No other, No palpitations, No paroxysmal nocturnal dyspnea Gastrointestinal: no complaints Genitourinary: no complaints Psychological: no complaints Past Medical History As per history of present illness. Past Surgical History As per history of present illness. Social History As per history of present illness. Alcohol Use: none Smoking Status: Current every day smoker (Half pack per day 46 years) Drug Use: none Exam/Review of Systems Vital Signs Vitals Vital Signs Date Time Temp Pulse Resp B/P Pulse Ox O2 Delivery O2 Flow Rate FiO2 07/21/16 20:45 78 07/21/16 20:25 98.8 17 127/60 90 07/21/16 10:02 Nasal Cannula 2.0 Exam GENERAL: Patient is in no acute distress laying supine in bed; wound VAC intact in the right foot VASCULAR: Pedal pulses are not palpable bilaterally. There is edema of the right foot and lower leg. Capillary filling time is delayed on toes of the left foot. No varicose veins noted in the lower extremity. NEUROLOGICAL: Protective sensation is diminished to sharp, dull, vibratory and temperature stimuli bilaterally. Deep tendon reflexes are normal bilateral. Negative Tinel sign on examination of bilateral lower extremity SKIN: Patient is status post guillotine amputation of right foot transmetatarsal level with wound VAC at 125 mmHg pressure suction. There is macerated wound edge noted with exposed bone, tendon, muscle and soft tissue. There is no pus noted and no active bleeding. Mild malodor present. Edema of the right foot noted. No open wound on the left lower extremity MUSCULOSKELETAL: Right foot is tender to palpation. Status post open TMA Labs and imaging reviewed. Results Result Diagram: 07/21/16 0938 07/21/16 09 Results 24 hrs Laboratory Tests Test 07/20/16 22:45 07/21/16 03:00 07/21/16 05:50 07/21/16 09:04 White Blood Count 8.8 # Red Blood Count 2.39 #L Hemoglobin 7.5 #L Hematocrit 25.2 #L Mean Corpuscular Volume 105.4 H Mean Corpuscular Hemoglobin 31.4 Mean Corpuscular Hemoglobin Concent 29.8 L Red Cell Distribution Width 16.3 #H Platelet Count 125 L Mean Platelet Volume 9.6 # Neutrophils % 78.7 H Lymphocytes % 13.0 L Monocytes % 5.9 Eosinophils % 1.9 Basophils % 0.2 Nucleated Red Blood Cells % 0.0 Neutrophils # 6.9 Lymphocytes # 1.1 Monocytes # 0.5 Eosinophils # 0.2 Basophils # 0.0 Nucleated Red Blood Cells # 0.0 Prothrombin Time 14.3 H Prothrombin Time Ratio 1.1 INR International Normalized Ratio 1.11 Activated Partial Thromboplast Time 32.4 D-Dimer 6120.00 H D-Dimer Comment Sodium Level 140 Potassium Level 4.1 Chloride Level 98 Carbon Dioxide Level 30 Anion Gap 16 Blood Urea Nitrogen 25 H Creatinine 4.56 H Glucose Level 234 H Calcium Level 8.0 L Total Bilirubin 0.0 L Direct Bilirubin 0.00 Indirect Bilirubin 0.0 Aspartate Amino Transf (AST/SGOT) 14 L Alanine Aminotransferase (ALT/SGPT) 19 Alkaline Phosphatase 91 Troponin I 0.042 0.040 B-Type Natriuretic Peptide 73145 H Total Protein 6.7 Albumin 3.5 Globulin 3.20 Albumin/Globulin Ratio 1.09 Iron Level 34 L Total Iron Binding Capacity 189 L Percent Iron Saturation 18 L Bedside Glucose 135 Test 07/21/16 09:38 07/21/16 12:18 07/21/16 16:26 07/21/16 17:09 White Blood Count 7.0 # Red Blood Count 2.27 L Hemoglobin 7.0 L Hematocrit 24.0 L Mean Corpuscular Volume 105.7 H Mean Corpuscular Hemoglobin 30.8 Mean Corpuscular Hemoglobin Concent 29.2 L Red Cell Distribution Width 16.3 H Platelet Count 118 L Mean Platelet Volume 10.2 Neutrophils % 73.2 Lymphocytes % 16.1 Monocytes % 7.5 Eosinophils % 2.6 Basophils % 0.3 Nucleated Red Blood Cells % 0.0 Neutrophils # 5.1 Lymphocytes # 1.1 Monocytes # 0.5 Eosinophils # 0.2 Basophils # 0.0 Nucleated Red Blood Cells # 0.0 Sodium Level 143 Potassium Level 4.0 Chloride Level 96 L Carbon Dioxide Level 31 Anion Gap 20 H Blood Urea Nitrogen 31 H Creatinine 5.56 H Glucose Level 137 # Hemoglobin A1c 6.3 H Calcium Level 7.9 L Phosphorus Level 5.2 H Magnesium Level 1.8 Iron Level 46 Total Iron Binding Capacity 188 L Percent Iron Saturation 24 Ferritin 885.0 H Total Bilirubin 0.0 L Direct Bilirubin 0.00 Indirect Bilirubin 0.0 Aspartate Amino Transf (AST/SGOT) 13 L Alanine Aminotransferase (ALT/SGPT) 14 Alkaline Phosphatase 80 Creatine Kinase 22 L 24 Creatine Kinase Index 1.7 2.0 Creatinine Kinase MB (Mass) 0.37 0.47 Troponin I 0.036 0.024 Total Protein 6.4 Albumin 3.1 L Globulin 3.30 H Albumin/Globulin Ratio 0.93 Thyroid Stimulating Hormone (TSH) 4.600 Bedside Glucose 264 H 279 H Test 07/21/16 20:55 Bedside Glucose 227 H Medications Medications Current Medications Ondansetron HCl (Zofran Inj) 4 mg Q6H PRN IV NAUSEA AND/OR VOMITING; Start at 05:00 Acetaminophen (Tylenol Tab) 650 mg Q6H PRN PO PAIN LEVEL 1-3 OR FEVER; Start at 05:00 Docusate Sodium (Colace) 100 mg Q12H PRN PO CONSTIPATION; Start 07/21/16 at 05: 00 Bisacodyl (Dulcolax) 5 mg DAILY PRN PO CONSTIPATION; Start 07/21/16 at 05:00 Famotidine (Pepcid Iv) 20 mg DAILY IV Last administered on 07/21/16 08:25; Admin Dose 20 MG; Start 07/21/16 at 09:00 Atorvastatin Calcium (Lipitor) 20 mg QHS PO Last administered on 07/21/16 20: 57; Admin Dose 20 MG; Start 07/21/16 at 21:00 Carvedilol (Coreg) 25 mg BID PO Last administered on 07/21/16 20:58; Admin Dose 25 MG; Start 07/21/16 at 09:00 Clonazepam (Klonopin) 1 mg QHS PRN PO ANXIETY; Start 07/21/16 at 06:00 Doxazosin Mesylate (Cardura) 4 mg DAILY@21 PO Last administered on 07/21/16 20 :57; Admin Dose 4 MG; Start 07/21/16 at 21:00 Gabapentin (Neurontin) 300 mg BID PO Last administered on 07/21/16 20:57; Admin Dose 300 MG; Start 07/21/16 at 09:00 Hydroxyzine HCl (Atarax) 50 mg Q6H PRN PO ITCHING; Start 07/21/16 at 06:00 Paroxetine HCl (Paxil) 20 mg DAILY PO Last administered on 07/21/16 08:26; Admin Dose 20 MG; Start 07/21/16 at 09:00 Miscellaneous Information 1 ea NOTE XX ; Start 07/21/16 at 06:00 Glucose (Glutose) 15 gm Q15M PRN PO DECREASED GLUCOSE; Start 07/21/16 at 06:00 Glucose (Glutose) 22.5 gm Q15M PRN PO DECREASED GLUCOSE; Start 07/21/16 at 06: 00 Dextrose (D50w Syringe) 25 ml Q15M PRN IV DECREASED GLUCOSE; Start 07/21/16 at 06:00 Dextrose (D50w Syringe) 50 ml Q15M PRN IV DECREASED GLUCOSE; Start 07/21/16 at 06:00 Glucagon (Glucagen) 1 mg Q15M PRN IM DECREASED GLUCOSE; Start 07/21/16 at 06:00 Glucose (Glutose) 15 gm Q15M PRN BUCCAL DECREASED GLUCOSE; Start 07/21/16 at 06 :00 Diagnostic Test (Pha) (Accu-Chek) 1 ea 02 XX ; Start 07/22/16 at 02:00 Epoetin Pierce 8000 units 8,000 units TuThSa@17 SC Last administered on 16:45; Admin Dose 8,000 UNITS; Start 07/21/16 at 17:00 Vancomycin HCl/ Sodium Chloride (Vancocin/NS) 500 ml @ 125 mls/hr ONCE IVPB Last administered on 07/21/16 16:13; Admin Dose 125 MLS/HR; Start 07/21/16 at 16:00; Stop 07/21/16 at 23:00 Hydromorphone HCl (Dilaudid) 0.5 mg Q3 PRN IV PAIN LEVEL 7-10 Last administered on 07/21/16 19:40; Admin Dose 0.5 MG; Start 07/21/16 at 18:00 Insulin Glargine (Lantus) 10 unit DAILY@20 SC Last administered on 07/21/16 21 :00; Admin Dose 10 UNIT; Start 07/21/16 at 20:00 Amoxicillin/ Clavulanate Potassium (Augmentin) 500 mg BID PO Last administered on 07/21/16 20:57; Admin Dose 500 MG; Start 07/21/16 at 21:00 Benazepril HCl (Lotensin) 10 mg DAILY PO ; Start 07/22/16 at 09:00 Isosorbide Dinitrate 10 mg 10 mg TID PO Last administered on 07/21/16 20:57; Admin Dose 10 MG; Start 07/21/16 at 21:00 Piperacillin Sod/ Tazobactam Sod (Zosyn 2.25gm/ 50ml (Pmx)) 50 ml @ 100 mls/hr Q8 IVPB ; Start 07/21/16 at 22:00 Morphine Sulfate (morphine) 3 mg Q3H PRN IV PAIN; Start 07/21/16 at 22:30 SANTOS ARENAS DPM July 21, 2016 22:34
[2016-07-21] MEDS: PIPER-TAZO 2.25 GM (PMX) 50 ML IVPB SCH (22:37)
[2016-07-22] VITALS (20 sets, daily range): BP systolic 121–160; BP diastolic 53–79; PULSE 61–94; RESP 17–18; Ht 167.6 cm; Wt 100.2 kg
--- NOTE | 2016-07-22 00:39 | CONS ---
DATE OF ADMISSION: 07/21/2016 DATE OF CONSULTATION: HISTORY OF PRESENT ILLNESS: The patient is a 61-year-old Malaysian male who was admitted with a mynor f complaint of chest pain radiating down the left arm on 07/21/2016. He was seen in the emergency r oom 1 week after he had a post-transmetatarsal amputation right leg for gangrene and peripheral vasc ular disease. He was subsequently treated with a wound VAC. There are cultures pending, but there is no culture result available at this time. The patient has a history of tobacco use, diabetes alva litus, end-stage renal disease. His white count on admission was 7000, hematocrit 24%, hemoglobin 7 .8, glucose 279. PAST MEDICAL HISTORY: Hypothyroidism, peripheral neuropathy, peripheral vascular disease, end-stage renal disease, diabetes mellitus, gout, hyperlipidemia, and hypertension. ALLERGIES: HE HAS NO KNOWN ALLERGIES. MEDICATIONS: Consist of: 1. Januvia. 2. Glipizide. 3. Allopurinol. 4. Clonazepam. 5. Carvedilol. 6. Sertraline. 7. Atorvastatin. 8. Aspirin 81 mg 9. Levothyroxine. 10. Pantoprazole. 11. Gabapentin. 12. Doxazosin. PHYSICAL EXAMINATION: GENERAL: Reveals a mesomorphic, cheerful, fully bearded [place] male lying in bed. His right foot is covered on the tip with a wound VAC. The surrounding skin is macerated from the lateral aspect of the visible wound outside of the wound VAC cover completely around to the other side going over t he plantar surface to the medial surface of the wound. There is no purulent drainage or foul odor p resent. There is no redness or cellulitis visible. The wound VAC is wrapped and the affected area is wrapped by what appears to be a clear wrap resembling Saran Wrap, which I think is responsible fo r the patient's maceration, which is causing him pain. CHEST: Clear to auscultation. HEART: Regular without gallop, murmur, or rub. A dialysis catheter is present. ABDOMEN: Obese, protuberant, soft. No palpable organs or masses. EXTREMITIES: The patient has palpable bilateral axillary femoral bypass procedures. NEUROLOGIC: The patient can move all 4 of his extremities. INITIAL IMPRESSION: 1. Status post transmetatarsal amputation. 2. Rule out wound infection. 3. Peripheral vascular disease. 4. Diabetes mellitus. 5. End-stage renal disease. 6. Hypertension. 7. Tobacco use. 8. Gout. 9. Hypothyroidism. 10. Peripheral neuropathy. RECOMMENDATIONS: Include Zosyn at a renal dialysis dose of 2.25 grams every 8 hours IV and vancomyc in by pharmacy administration. Thank you for referring this interesting patient. Dictated By: Riaz FIGUEROA MD for ARINA BLACK MD EC/NTS Conf#: [id number] DID#: [id number] CC: ANNEMARIE ABDI MD;*EndCC*
[2016-07-22] MEDS: morphine 4 MG/ML VIAL IV PRN ×8 (01:12→23:55)
[2016-07-22] MEDS: ACCU-CHEK XX SCH (02:00)
[2016-07-22 02:11] LABS: TROPONIN-I 0.037 ng/ml (0.00-0.12)
--- NOTE | 2016-07-22 02:21 | CONS ---
DATE OF ADMISSION: 07/21/2016 DATE OF CONSULTATION: 07/21/2016 TYPE OF CONSULTATION: Vascular surgery consultation. Dear Doctors: HISTORY OF PRESENT ILLNESS: Mr. Saleem is a 61-year-old gentleman known well to our vascular surg jeevan service secondary to history of being a vasculopath who has undergone multiple vascular procedur es. In short, the patient has had a history of aortobifemoral bypass in which he had graft infectio n and was transferred to a tertiary center for explant and for bilateral lower extremity revasculari zations. As of recent, patient underwent a new right ax-femoral bypass graft and a right lower extr emity open TMA. The patient now presents to the hospital secondary for having chest pain, shortness of breath, and some changes to his EKG findings with ST segment depressions. The patient currently being followed by cardiology and vascular surgery was consulted secondary to his wounds and right l ower extremity pain. Upon evaluation of the patient, he denies currently shortness of breath, chest pain, nausea, vomiting, fever, or chills. He does have right foot pain. His currently open TMA is being managed with a wound VAC home device. REVIEW OF SYSTEMS: A 12-point review performed and negative except what is mentioned in the HPI. PAST MEDICAL HISTORY: Entails coronary artery disease, bilateral lower extremity atherosclerosis wi th gangrene, end-stage renal disease, anemia of chronic disease, diabetes, abdominal wall hernia, hy pothyroidism, anxiety, congestive heart failure of unspecified type, hypothyroidism, dyslipidemia, B PH. PAST SURGICAL HISTORY: 1. Coronary artery bypass grafting. 2. Aortobifemoral bypass. 3. Explant of infected aortobifemoral bypass. 4. Left axillary to left femoral bypass. 5. Right axillary to right femoral bypass (suspenders). 6. Multiple abdominal surgeries. 7. Perforated stomach ulcer, which was repaired. 8. AV fistula creations. 9. Multiple chest wall catheters. 10. Multiple debridements of the lower extremities. FAMILY HISTORY: Positive for hypertension and coronary artery disease. SOCIAL HISTORY: Ex-smoker. Currently, denies tobacco, alcohol, or illicit drug use. ALLERGIES: NO KNOWN DRUG ALLERGIES. PHYSICAL EXAMINATION: GENERAL: Alert and oriented x3. Complaint of right foot pain and some chest pain. HEENT: Normocephalic, atraumatic. EOMI. Mucosa moist. NECK: Supple. No carotid bruit. PULMONARY: Coarse breath sounds bilaterally, some crackles at the bases. CARDIOVASCULAR: S1, S2 present. No murmurs. ABDOMEN: Soft, nontender, nondistended. Bowel sounds positive. Surgical midline incision is well healed with some areas of granulation tissue. Truncal obesity. EXTREMITIES: 1. Right upper extremity: Palpable brachial pulse. Motor, sensory intact. Cap refill 2 to 3 seco nds. There is an axillofemoral bypass over collarbone bone area that seems to be patent. 2. Left upper extremity: Palpable brachial pulse. Motor, sensory intact. Cap refill 2 to 3 secon ds. Presence of a left axillary to femoral bypass palpable. 3. Right lower extremity: Palpable femoral pulse, nonpalpable pedal pulse. Motor, sensory intact. Capillary refill 3 to 4 seconds. Open TMA amputation stump with wound VAC intact. Over the later al aspect of the wound, there is pale and murky discharge. The patient mentions that he is tender i n this segment more than anything else. No areas of crepitus or blistering. No surrounding erythem a was identified. 4. Left lower extremity: Palpable femoral pulse. Surgical scar is well healed. Nonpalpable pedal pulse. Motor and sensory intact. Capillary refill 3 to 4 seconds. ASSESSMENT AND PLAN: 1. Bilateral lower extremity atherosclerosis with gangrene: It seems the patient's new revasculari zation from the right axillary to femoral has perfused the right lower extremity. The patient has a lso undergone a new open transmetatarsal amputation with possible posterior flap that may be able to allow good granulation tissue develop with the wound VAC negative pressure system and allow for juana quate wound healing. At the moment, the patient does have some drainage from the lateral aspect of the wound. From a vascular surgery standpoint, the patient has had his revascularization in terms o f inflow and no further intervention will be needed from our standpoint for now. We will offer the patient to undergo debridement and possible revision of his transmetatarsal amputation stump and andreas henao plan to follow the wound's progress. Would recommend for secondary wound closure in order to allo w for adequate monitoring for granulation tissue development. 2. Optimize vascular status (BP meds, diet, nutrition, exercise, sugar control, antiplatelets, weig ht loss). 3. End-stage renal disease on hemodialysis Monday, Monday, Monday. Currently, the patient is to lerating his fistula via his left upper extremity for his dialysis sessions. We will plan to schedu le the patient for eventual fistula ultrasound and to monitor its progress for now. 4. I discussed smoking cessation with the patient as he is an active smoker about 1/2 pack to 1 pac k per day for 46 years. 5. Discussed findings, plan and management with the patient and he understands. No further vascular intervention at this time. We will plan to follow his debridement and eventual secondary closure of his wound and only intervene if needed. This will be difficult task as the pat ient would likely require an antegrade access for any intervention. Thank you for allowing us to partake in the care of your patient. Please call with any questions. Dictated By: LUZ MOHAN/ROD Conf#: [id number] DID#: [id number] CC: ANNEMARIE ABDI MD;*EndCC*
[2016-07-22 02:23] LABS: CK-MB 0.49 ng/ml (0.0-2.4)
[2016-07-22] MEDS: PIPER-TAZO 2.25 GM (PMX) 50 ML IVPB SCH ×3 (05:49→21:02)
[2016-07-22] MEDS: LEVOTHYROXINE 75 MCG TAB PO SCH (05:49)
[2016-07-22] MEDS ORDERED: morphine 2 MG INJ IV ONE (06:00)
[2016-07-22 07:12] LABS: ADD SCAN DIFF NO
[2016-07-22 07:19] LABS: BASOPHILS % 0.3 % (0.0-2.0); EOSINOPHILS # 0.2 10^3/ul (0.0-0.5); EOSINOPHILS % 2.4 % (0.0-7.0); HEMATOCRIT 25.4 % (42.0-52.0); HEMOGLOBIN 7.4 g/dl (14.0-18.0); LYMPHOCYTES # 1.1 10^3/ul (0.8-2.9); MEAN CORPUSCULAR HGB CONC 29.1 g/dl (32.0-37.0); MEAN CORPUSCULAR VOLUME 106.3 fl (82.0-101.0); MEAN PLATELET VOLUME 10.8 fl (7.4-10.4); MONOCYTE # 0.5 10^3/ul (0.3-0.9); MONOCYTES % 6.7 % (0.0-11.0); NEUTROPHIL # 5.3 10^3/ul (1.6-7.5); NEUTROPHILS % 75.2 % (39.0-77.0); PLATELET COUNT 123 10^3/UL (140-415); RED BLOOD COUNT 2.39 10^6/ul (4.70-6.10); RED CELL DISTRIBUTION WIDTH 15.9 % (11.5-14.5)
[2016-07-22] MEDS: SEVELAMER 800 MG TAB PO SCH ×3 (07:32→17:42)
[2016-07-22] MEDS: INSULIN ASPART [NOVOLOG] 3 ML PEN SC SCH ×7 (07:43→20:40)
[2016-07-22 07:44] LABS: ALBUMIN 3.2 g/dl (3.3-4.9)
[2016-07-22 07:45] LABS: POTASSIUM 4.8 mmol/L (3.5-5.1)
[2016-07-22 07:47] LABS: ALBUMIN/GLOBULIN RATIO 0.96; CREATININE 6.79 mg/dl (0.61-1.24); TOTAL PROTEIN 6.5 g/dl (6.1-8.1)
[2016-07-22 07:48] LABS: CALCIUM 7.6 mg/dl (8.4-10.2)
[2016-07-22 07:54] LABS: CK-MB 0.48 ng/ml (0.0-2.4)
[2016-07-22 07:56] LABS: TROPONIN-I 0.039 ng/ml (0.00-0.12)
[2016-07-22 08:00] LABS: MAGNESIUM 1.8 mg/dl (1.7-2.5); PHOSPHORUS 5.6 mg/dl (2.5-4.9)
[2016-07-22] MEDS: BENAZEPRIL 10 MG TAB PO SCH ×2 (08:21→08:33)
[2016-07-22] MEDS: GABAPENTIN 300 MG CAP PO SCH ×2 (08:21→20:41)
[2016-07-22] MEDS: FAMOTIDINE 20 MG INJ IV SCH (08:21)
[2016-07-22] MEDS: PAROXETINE 20 MG TAB PO SCH (08:22)
[2016-07-22] MEDS: ISOSORBIDE DINITRATE 10 MG TAB PO SCH ×4 (08:22→20:40)
[2016-07-22 08:28] LABS: THYROID STIMULATING HORMONE 3.89 MIU/L (0.465-4.680)
[2016-07-22] MEDS ORDERED: REGADENOSON 0.4 MG/5 ML SYG ONE (10:45)
--- NOTE | 2016-07-22 11:08 | PN ---
Date/Time of Note Date/Time of Note DATE: 07/22/16 TIME: 11:03 Assessment/Plan Lines/Catheters IV Catheter Type (from [facility]): Saline Lock Mott in Place (from [facility]): No Assessment/Plan Chief Complaint/Hosp Course -Bilateral lower extremity atherosclerosis with gangrene: It seems the patient' s new revascularization from the right axillary to femoral has perfused the right lower extremity. The patient has also undergone a new open transmetatarsal amputation with possible posterior flap that may be able to allow good granulation tissue develop with the wound VAC negative pressure system and allow for adequate wound healing. At the moment, the patient does have some drainage from the lateral aspect of the wound. From a vascular surgery standpoint, the patient has had his revascularization in terms of inflow and no further intervention will be needed from our standpoint for now. We will offer the patient to undergo debridement and possible revision of his transmetatarsal amputation stump and will plan to follow the wound's progress. Would recommend for secondary wound closure in order to allow for adequate granulation tissue development. -Optimize vascular status (BP meds, diet, nutrition, exercise, sugar control, antiplatelets, weight loss). -End-stage renal disease on hemodialysis Monday, Monday, Monday. Currently, the patient is tolerating his fistula via his left upper extremity for his dialysis sessions. We will plan to schedule the patient for eventual fistula ultrasound and to monitor its progress for now. -Discussed smoking cessation with the patient as he is an active smoker about 1/ 2 pack to 1 pack per day for 46 years. -Discussed findings, plan and management with the patient and he understands. -No further vascular intervention at this time. We will plan to follow his debridement and eventual secondary closure of his wound and only intervene if needed. This will be a difficult task as the patient would likely require an antegrade access for any intervention. -Thank you for allowing us to partake in the care of your patient. Please call with any questions. Problems: Subjective 24 Hr Interval Summary no new vascular events overnight Exam/Review of Systems Vital Signs Vitals Vital Signs Date Time Temp Pulse Resp B/P Pulse Ox O2 Delivery O2 Flow Rate FiO2 07/22/16 08:04 98.6 64 18 143/64 93 07/21/16 20:33 Nasal Cannula 2.0 Intake and Output 07/21/16 07/21/16 07/22/16 15:00 23:00 07:00 Intake Total 480 ml 850 ml Balance 480 ml 850 ml Exam Free Text/Dictation GENERAL: Alert and oriented x3. Complaint of right foot pain and some chest pain. PULMONARY: Coarse breath sounds bilaterally, some crackles at the bases. CARDIOVASCULAR: S1, S2 present. ABDOMEN: Soft, nontender, nondistended. Bowel sounds positive. Surgical midline incision is well healed with some areas of granulation tissue. Truncal obesity. EXTREMITIES: 1. Right upper extremity: Palpable brachial pulse. Motor, sensory intact. Cap refill 2 to 3 seconds. Axillofemoral bypass near collarbone bone area that seems to be patent. 2. Left upper extremity: Palpable brachial pulse. Motor, sensory intact. Cap refill 2 to 3 seconds. Axillary to femoral bypass palpable. 3. Right lower extremity: Palpable femoral pulse, nonpalpable pedal pulse. Motor, sensory intact. Capillary refill 3 to 4 seconds. Open TMA amputation stump with wound VAC intact. Over the lateral aspect of the wound, there is pale and murky discharge. The patient mentions that he is tender in this segment more than anything else. No areas of crepitus or blistering. No surrounding erythema was identified. wound vac intact 4. Left lower extremity: Palpable femoral pulse. Surgical scar is well healed. Nonpalpable pedal pulse. Motor and sensory intact. Capillary refill 3 to 4 seconds. Results Result Diagram: 07/22/16 0559 07/22/16 0558 LUZ MARIN MD July 22, 2016 11:08
--- NOTE | 2016-07-22 11:51 | CONS ---
Date/Time of Note Date/Time of Note DATE: 07/22/16 TIME: 11:45 Assessment/Plan Assessment/Plan Chief Complaint/Hosp Course IMPRESSION: 1. Chest pain, assess for acute coronary syndrome.-negative troponin x 3 2. Abnormal electrocardiogram, assess for acute coronary syndrome. 3. History of coronary artery disease, status post coronary artery bypass graft surgery. 4. Cardiomyopathy, decreased left ventricular ejection fraction last time approximately 35% to 40% by echo 03/2016. 5. Hypertension. 6. Dyslipidemia. 7. Peripheral arterial disease, status post right transmetatarsal amputation. 8. Possible cellulitis of the left foot. 9. End-stage renal disease on hemodialysis. 10. Anemia, macrocytic. Recc: -Tele -serial ecg's -Continue benazepril/coreg/isordil -Continue statin -Lexiscan stress test today -Ongoing vascular eval and treatment local wound care Problems: Consultation Date/Type/Reason Admit Date/Time July 21, 2016 at 02:28 Initial Consult Date 07/21/16 Type of Consultation: Cardiology Reason for Consultation Chest pain Referring Provider: STACEY NEWTON Exam/Review of Systems Vital Signs Vitals Vital Signs Date Time Temp Pulse Resp B/P Pulse Ox O2 Delivery O2 Flow Rate FiO2 07/22/16 08:04 98.6 64 18 143/64 93 07/22/16 08:00 Nasal Cannula 2.0 Intake and Output 07/21/16 07/21/16 07/22/16 15:00 23:00 07:00 Intake Total 480 ml 850 ml Balance 480 ml 850 ml Exam Review of Systems: CONSTITUTIONAL: No fevers, chills. PULMONARY: No sob CARDIOVASCULAR: intermittent chest pain GASTROINTESTINAL: No nausea/vomiting. GENITOURINARY: No hematuria/dysuria. MUSCULOSKELETAL: No myagias/arthalgias. PSYCHIATRIC: The patient denies depression. NEUROLOGIC: No weakness Constitutional: alert Psych: no complaints Head: normocephalic ENMT: mucosa pink and moist Neck: jvd (9 cm water), supple Respiratory: diminished breath sounds (at bases/B) Cardiovascular: regular rate and rhythm Gastrointestinal: non-tender, soft Musculoskeletal: muscle tone (normal) Extremities: edema (none), other (woundvac on ) Neurological: other (No focal deficits) Results Result Diagram: 07/22/16 0559 07/22/16 0558 Results 24 hrs Laboratory Tests Test 07/21/16 12:18 07/21/16 16:26 07/21/16 17:09 07/21/16 20:55 Bedside Glucose 264 H 279 H 227 H Creatine Kinase 24 Creatine Kinase Index 2.0 Creatinine Kinase MB (Mass) 0.47 Troponin I 0.024 Test 07/22/16 00:42 07/22/16 02:35 07/22/16 05:58 07/22/16 05:59 Creatine Kinase 25 24 Creatine Kinase Index 2.0 2.0 Creatinine Kinase MB (Mass) 0.49 0.48 Troponin I 0.037 0.039 Bedside Glucose 242 H Sodium Level 141 Potassium Level 4.8 Chloride Level 97 Carbon Dioxide Level 27 Anion Gap 22 H Blood Urea Nitrogen 43 #H Creatinine 6.79 H Glucose Level 152 Calcium Level 7.6 L Total Bilirubin 0.0 L Direct Bilirubin 0.00 Indirect Bilirubin 0.0 Aspartate Amino Transf (AST/SGOT) 19 Alanine Aminotransferase (ALT/SGPT) 16 Alkaline Phosphatase 85 Total Protein 6.5 Albumin 3.2 L Globulin 3.30 H Albumin/Globulin Ratio 0.96 White Blood Count 7.0 Red Blood Count 2.39 L Hemoglobin 7.4 L Hematocrit 25.4 L Mean Corpuscular Volume 106.3 H Mean Corpuscular Hemoglobin 31.0 Mean Corpuscular Hemoglobin Concent 29.1 L Red Cell Distribution Width 15.9 H Platelet Count 123 L Mean Platelet Volume 10.8 H Neutrophils % 75.2 Lymphocytes % 15.0 Monocytes % 6.7 Eosinophils % 2.4 Basophils % 0.3 Nucleated Red Blood Cells % 0.0 Neutrophils # 5.3 Lymphocytes # 1.1 Monocytes # 0.5 Eosinophils # 0.2 Basophils # 0.0 Nucleated Red Blood Cells # 0.0 Phosphorus Level 5.6 H Magnesium Level 1.8 Triglycerides Level 106 Cholesterol Level 114 LDL Cholesterol, Calculated 56 HDL Cholesterol 37 Cholesterol/HDL Ratio 3.0 Thyroid Stimulating Hormone (TSH) 3.890 Free Thyroxine 1.06 Test 07/22/16 07:40 Bedside Glucose 164 Medications Medications Current Medications Ondansetron HCl (Zofran Inj) 4 mg Q6H PRN IV NAUSEA AND/OR VOMITING; Start at 05:00 Acetaminophen (Tylenol Tab) 650 mg Q6H PRN PO PAIN LEVEL 1-3 OR FEVER; Start at 05:00 Docusate Sodium (Colace) 100 mg Q12H PRN PO CONSTIPATION; Start 07/21/16 at 05: 00 Bisacodyl (Dulcolax) 5 mg DAILY PRN PO CONSTIPATION; Start 07/21/16 at 05:00 Famotidine (Pepcid Iv) 20 mg DAILY IV Last administered on 07/22/16 08:21; Admin Dose 20 MG; Start 07/21/16 at 09:00 Atorvastatin Calcium (Lipitor) 20 mg QHS PO Last administered on 07/21/16 20: 57; Admin Dose 20 MG; Start 07/21/16 at 21:00 Carvedilol (Coreg) 25 mg BID PO Last administered on 07/21/16 20:58; Admin Dose 25 MG; Start 07/21/16 at 09:00 Clonazepam (Klonopin) 1 mg QHS PRN PO ANXIETY; Start 07/21/16 at 06:00 Doxazosin Mesylate (Cardura) 4 mg DAILY@21 PO Last administered on 07/21/16 20 :57; Admin Dose 4 MG; Start 07/21/16 at 21:00 Gabapentin (Neurontin) 300 mg BID PO Last administered on 07/22/16 08:21; Admin Dose 300 MG; Start 07/21/16 at 09:00 Hydroxyzine HCl (Atarax) 50 mg Q6H PRN PO ITCHING; Start 07/21/16 at 06:00 Paroxetine HCl (Paxil) 20 mg DAILY PO Last administered on 07/22/16 08:22; Admin Dose 20 MG; Start 07/21/16 at 09:00 Miscellaneous Information 1 ea NOTE XX ; Start 07/21/16 at 06:00 Glucose (Glutose) 15 gm Q15M PRN PO DECREASED GLUCOSE; Start 07/21/16 at 06:00 Glucose (Glutose) 22.5 gm Q15M PRN PO DECREASED GLUCOSE; Start 07/21/16 at 06: 00 Dextrose (D50w Syringe) 25 ml Q15M PRN IV DECREASED GLUCOSE; Start 07/21/16 at 06:00 Dextrose (D50w Syringe) 50 ml Q15M PRN IV DECREASED GLUCOSE; Start 07/21/16 at 06:00 Glucagon (Glucagen) 1 mg Q15M PRN IM DECREASED GLUCOSE; Start 07/21/16 at 06:00 Glucose (Glutose) 15 gm Q15M PRN BUCCAL DECREASED GLUCOSE; Start 07/21/16 at 06 :00 Diagnostic Test (Pha) (Accu-Chek) 1 ea 02 XX ; Start 07/22/16 at 02:00 Epoetin Pierce (Epogen (Esrd)) 8,000 units TuThSa@17 SC Last administered on 07/21 16:45; Admin Dose 8,000 UNITS; Start 07/21/16 at 17:00 Insulin Glargine (Lantus) 10 unit DAILY@20 SC Last administered on 07/21/16 21 :00; Admin Dose 10 UNIT; Start 07/21/16 at 20:00 Benazepril HCl (Lotensin) 10 mg DAILY PO ; Start 07/22/16 at 09:00 Isosorbide Dinitrate 10 mg 10 mg TID PO Last administered on 07/21/16 20:57; Admin Dose 10 MG; Start 07/21/16 at 21:00 Piperacillin Sod/ Tazobactam Sod (Zosyn 2.25gm/ 50ml (Pmx)) 50 ml @ 100 mls/hr Q8 IVPB Last administered on 07/22/16 05:49; Admin Dose 100 MLS/HR; Start at 22:00 Morphine Sulfate (morphine) 3 mg Q3H PRN IV PAIN Last administered on 08:29; Admin Dose 3 MG; Start 07/21/16 at 22:30 TOMAS WELCH July 22, 2016 11:51
--- NOTE | 2016-07-22 12:56 | CARRPT ---
DATE OF PROCEDURE: 07/22/2016 PROCEDURE: Lexiscan Cardiolite stress test, electrocardiogram portion. INDICATION: Chest pain, assess for ischemia. BASELINE VITAL SIGNS AND ELECTROCARDIOGRAM: Pulse 77, blood pressure 150/61. Electrocardiogram rev eals normal sinus rhythm, rate of 85, normal axis, normal intervals, with inferior lateral biphasic T-wave abnormality. PROCEDURE: The patient underwent standard Lexiscan infusion protocol over 10 seconds followed by ra diolabeled tracer. The patient's test was stopped due to completion of protocol. Maximal achieved blood pressure during the test 122/55. Maximal heart rate during the test 88. ELECTROCARDIOGRAM FINDINGS: The patient did not develop any new Lexiscan-induced ST or T-wave briones es from baseline abnormalities. No documented PVCs. SYMPTOMS: The patient complained of chest pain before, after and throughout stress testing. IMPRESSION: 1. No Lexiscan-induced ST or T-wave changes from baseline abnormalities that are diagnostic for car diac ischemia. 2. Complaints of chest pain throughout stress testing. 3. No documented premature ventricular contractions during stress testing. 4. Report of nuclear images to follow in separate dictation. Dictated By: TOMAS QUINONES/ROD Conf#: [id number] DID#: [id number]
[2016-07-22 16:16] LABS: CK-MB 0.43 ng/ml (0.0-2.4)
[2016-07-22 16:17] LABS: TROPONIN-I 0.018 ng/ml (0.00-0.12)
[2016-07-22] MEDS: HYDROCODONE/APAP (5/325) TAB PO PRN ×2 (16:36→22:41)
--- NOTE | 2016-07-22 17:20 | RADRPT ---
PROCEDURE: Nuclear medicine myocardial perfusion scan CLINICAL INDICATION: Chest pain, congestive heart failure. TECHNIQUE: 31.8 mCi of technetium 99m Cardiolite was administered for the stress study. 10.6 mCi of technetium 99m Cardiolite was administered for the resting study. The patient was stressed with 0 .4 mg of Lexiscan. Images were reviewed in the short axis, vertical long axis, and horizontal long axis views. Wall motion was assessed and ejection fraction was calculated as well. Images were revi ewed on a high-resolution PACS workstation. COMPARISON: Previous study from 09/11/2013 FINDINGS: There is slight worsening of transient ischemic dilation of the left ventricle. The previously desc ribed moderate sized, reversible perfusion defects in the anterior and lateral ward are similar to the prior study with slightly better perfusion of the inferior wall compared to the previous study. There is slight worsening of the global hypokinesis compared to the prior study. IMPRESSION: 1. Moderate to large reversible perfusion defect in the anterior lateral ward and to a lesser exte nt in the inferior wall compared to the prior study. 2. Slight interval worsening of transient ischemic dilatation of the left ventricle. 3. Progression of global hypokinesis with left ventricular ejection fraction at stress of 31%. RPTAT: [facility] Physician Jazmyne Date Time Electronically viewed and signed by Physician Jazmyne on 07/22/2016 17:19 /
--- NOTE | 2016-07-22 17:41 | CONS ---
Date/Time of Note Date/Time of Note DATE: 07/22/16 TIME: 17:40 Assessment/Plan Assessment/Plan Chief Complaint/Hosp Course - ESRD on Hemodialysis MWF - Recent Hx of toe Amputation @ [facility] - CAD / Post CABG - DM / DM Nephropathy - Severe PVD - Anemia PLAN: - Bedside HD - 2 units of PRBC on dialysis - EPOGEN - IV IRON - PAIN CONTROL - Continue his Vancomycin as was scheduled post surgery from [facility] THANK YOU [facility]. MUCH Problems: Consultation Date/Type/Reason Admit Date/Time July 21, 2016 at 02:28 Initial Consult Date 07/21/16 Type of Consultation: NEPHROLOGY Reason for Consultation ESRD Referring Provider: STACEY NEWTON 24 HR Interval Summary Constitutional: improved, no complaints Exam/Review of Systems Vital Signs Vitals Vital Signs Date Time Temp Pulse Resp B/P Pulse Ox O2 Delivery O2 Flow Rate FiO2 07/22/16 16:00 98.6 80 18 160/64 97 07/22/16 14:29 Room Air 07/22/16 08:00 2.0 Intake and Output 07/21/16 07/21/16 07/22/16 15:00 23:00 07:00 Intake Total 480 ml 850 ml Balance 480 ml 850 ml Exam Constitutional: alert Psych: no complaints Respiratory: crackles/rales Cardiovascular: regular rate and rhythm, systolic murmur Gastrointestinal: soft Results Result Diagram: 07/22/16 0559 07/22/16 0558 Results 24 hrs Laboratory Tests Test 07/21/16 20:55 07/22/16 00:42 07/22/16 02:35 07/22/16 05:58 Bedside Glucose 227 H 242 H Creatine Kinase 25 Creatine Kinase Index 2.0 Creatinine Kinase MB (Mass) 0.49 Troponin I 0.037 Sodium Level 141 Potassium Level 4.8 Chloride Level 97 Carbon Dioxide Level 27 Anion Gap 22 H Blood Urea Nitrogen 43 #H Creatinine 6.79 H Glucose Level 152 Calcium Level 7.6 L Total Bilirubin 0.0 L Direct Bilirubin 0.00 Indirect Bilirubin 0.0 Aspartate Amino Transf (AST/SGOT) 19 Alanine Aminotransferase (ALT/SGPT) 16 Alkaline Phosphatase 85 Total Protein 6.5 Albumin 3.2 L Globulin 3.30 H Albumin/Globulin Ratio 0.96 Test 07/22/16 05:59 07/22/16 07:40 07/22/16 15:00 07/22/16 17:30 White Blood Count 7.0 Red Blood Count 2.39 L Hemoglobin 7.4 L Hematocrit 25.4 L Mean Corpuscular Volume 106.3 H Mean Corpuscular Hemoglobin 31.0 Mean Corpuscular Hemoglobin Concent 29.1 L Red Cell Distribution Width 15.9 H Platelet Count 123 L Mean Platelet Volume 10.8 H Neutrophils % 75.2 Lymphocytes % 15.0 Monocytes % 6.7 Eosinophils % 2.4 Basophils % 0.3 Nucleated Red Blood Cells % 0.0 Neutrophils # 5.3 Lymphocytes # 1.1 Monocytes # 0.5 Eosinophils # 0.2 Basophils # 0.0 Nucleated Red Blood Cells # 0.0 Phosphorus Level 5.6 H Magnesium Level 1.8 Creatine Kinase 24 28 Creatine Kinase Index 2.0 1.5 Creatinine Kinase MB (Mass) 0.48 0.43 Troponin I 0.039 0.018 Triglycerides Level 106 Cholesterol Level 114 LDL Cholesterol, Calculated 56 HDL Cholesterol 37 Cholesterol/HDL Ratio 3.0 Thyroid Stimulating Hormone (TSH) 3.890 Free Thyroxine 1.06 Bedside Glucose 164 264 H Medications Medications Current Medications Ondansetron HCl (Zofran Inj) 4 mg Q6H PRN IV NAUSEA AND/OR VOMITING; Start at 05:00 Acetaminophen (Tylenol Tab) 650 mg Q6H PRN PO PAIN LEVEL 1-3 OR FEVER; Start at 05:00 Docusate Sodium (Colace) 100 mg Q12H PRN PO CONSTIPATION; Start 07/21/16 at 05: 00 Bisacodyl (Dulcolax) 5 mg DAILY PRN PO CONSTIPATION; Start 07/21/16 at 05:00 Famotidine (Pepcid Iv) 20 mg DAILY IV Last administered on 07/22/16 08:21; Admin Dose 20 MG; Start 07/21/16 at 09:00 Atorvastatin Calcium (Lipitor) 20 mg QHS PO Last administered on 07/21/16 20: 57; Admin Dose 20 MG; Start 07/21/16 at 21:00 Carvedilol (Coreg) 25 mg BID PO Last administered on 07/21/16 20:58; Admin Dose 25 MG; Start 07/21/16 at 09:00 Clonazepam (Klonopin) 1 mg QHS PRN PO ANXIETY; Start 07/21/16 at 06:00 Doxazosin Mesylate (Cardura) 4 mg DAILY@21 PO Last administered on 07/21/16 20 :57; Admin Dose 4 MG; Start 07/21/16 at 21:00 Gabapentin (Neurontin) 300 mg BID PO Last administered on 07/22/16 08:21; Admin Dose 300 MG; Start 07/21/16 at 09:00 Hydroxyzine HCl (Atarax) 50 mg Q6H PRN PO ITCHING; Start 07/21/16 at 06:00 Paroxetine HCl (Paxil) 20 mg DAILY PO Last administered on 07/22/16 08:22; Admin Dose 20 MG; Start 07/21/16 at 09:00 Miscellaneous Information 1 ea NOTE XX ; Start 07/21/16 at 06:00 Glucose (Glutose) 15 gm Q15M PRN PO DECREASED GLUCOSE; Start 07/21/16 at 06:00 Glucose (Glutose) 22.5 gm Q15M PRN PO DECREASED GLUCOSE; Start 07/21/16 at 06: 00 Dextrose (D50w Syringe) 25 ml Q15M PRN IV DECREASED GLUCOSE; Start 07/21/16 at 06:00 Dextrose (D50w Syringe) 50 ml Q15M PRN IV DECREASED GLUCOSE; Start 07/21/16 at 06:00 Glucagon (Glucagen) 1 mg Q15M PRN IM DECREASED GLUCOSE; Start 07/21/16 at 06:00 Glucose (Glutose) 15 gm Q15M PRN BUCCAL DECREASED GLUCOSE; Start 07/21/16 at 06 :00 Diagnostic Test (Pha) (Accu-Chek) 1 ea 02 XX ; Start 07/22/16 at 02:00 Epoetin Pierce (Epogen (Esrd)) 8,000 units TuThSa@17 SC Last administered on 07/21 16:45; Admin Dose 8,000 UNITS; Start 07/21/16 at 17:00 Insulin Glargine (Lantus) 10 unit DAILY@20 SC Last administered on 07/21/16 21 :00; Admin Dose 10 UNIT; Start 07/21/16 at 20:00 Benazepril HCl (Lotensin) 10 mg DAILY PO ; Start 07/22/16 at 09:00 Isosorbide Dinitrate 10 mg 10 mg TID PO Last administered on 07/21/16 20:57; Admin Dose 10 MG; Start 07/21/16 at 21:00 Piperacillin Sod/ Tazobactam Sod (Zosyn 2.25gm/ 50ml (Pmx)) 50 ml @ 100 mls/hr Q8 IVPB Last administered on 07/22/16 13:50; Admin Dose 100 MLS/HR; Start at 22:00 Morphine Sulfate (morphine) 3 mg Q3H PRN IV PAIN Last administered on 15:19; Admin Dose 3 MG; Start 07/21/16 at 22:30 Miscellaneous Information (*Rx Drug Level Order Reminder*) 1 ONCE ONCE XX ; Start 07/23/16 at 05:00; Stop 07/23/16 at 05:01 Acetaminophen/ Hydrocodone Bitart ([place] (5/325)) 1 tab Q4H PRN PO pain Last administered on 07/22/16 16:36; Admin Dose 1 TAB; Start 07/22/16 at 15:30 GER BOWMAN MD July 22, 2016 17:41
--- NOTE | 2016-07-22 19:31 | RADRPT ---
Vent Rate: 65 bpm RR Interval: 0 msec [place] Interval: 178 msec QRS Duration: 100 msec QT Interval: 430 msec QTC Interval: 447 msec P-R-T [place]: 47 - 0 - 146 degrees Normal sinus rhythm Nonspecific ST and T wave abnormality Abnormal ECG Electronically Signed By: Ricardo Joe [id number]
[2016-07-22] MEDS: INSULIN GLARGINE [LANtus] 3 ML PEN SC SCH (20:39)
[2016-07-22] MEDS: DOXAZOSIN 4 MG TAB PO SCH (20:41)
[2016-07-22] MEDS: ATORVASTATIN 20 MG TAB PO SCH (20:41)
[2016-07-22] MEDS: clonAZEPAM 0.5 MG TAB PO PRN (22:41)
--- NOTE | 2016-07-22 23:18 | PN ---
Date/Time of Note Date/Time of Note DATE: 07/22/16 TIME: 23:15 Assessment/Plan VTE Prophylaxis VTE Prophylaxis Intervention: SCD's Lines/Catheters IV Catheter Type (from Nrs): Saline Lock Urinary Cath still in place: No Assessment/Plan Assessment/Plan 1.atypical chest pain, Postiive stress test 2. ESRD on HD 3. HTN 4 HL 5. PVD s/p right great toe amputation Plan: Plan for HD today S/p lexiscan positive cardiology to decide for LHC BP stable will continue to follow up on patient Subjective 24 Hr Interval Summary Free Text/Dictation s/p lexiscan toady- positive, S/p HD today Exam/Review of Systems Vital Signs Vitals Vital Signs Date Time Temp Pulse Resp B/P Pulse Ox O2 Delivery O2 Flow Rate FiO2 07/22/16 20:11 97.9 86 18 146/67 95 07/22/16 14:29 Room Air 07/22/16 08:00 2.0 Intake and Output 07/21/16 07/21/16 07/22/16 15:00 23:00 07:00 Intake Total 480 ml 850 ml Balance 480 ml 850 ml Exam General: This is an obese male sitting in bed in mild distress from pain.. HEENT: Atraumatic, normocephalic. The pupils are equal, round and reactive. Extraocular motor are intact Neck: Supple with full range of motion. No rigidity or meningismus Lungs: Mild crackles at the bases Heart: Systolic murmur at the second right intercostal space radiating to the carotid Abdomen: Soft , nontender, nondraining wound at site of prior surgical incision. Extremities: Right foot toe amputation 5, wound VAC in place, left upper extremity AV fistula. Neurologic: Normal mental status Results Result Diagram: 07/22/16 0559 07/22/16 0558 Results 24 hrs Laboratory Tests Test 07/22/16 00:42 07/22/16 02:35 07/22/16 05:58 07/22/16 05:59 Creatine Kinase 25 24 Creatine Kinase Index 2.0 2.0 Creatinine Kinase MB (Mass) 0.49 0.48 Troponin I 0.037 0.039 Bedside Glucose 242 H Sodium Level 141 Potassium Level 4.8 Chloride Level 97 Carbon Dioxide Level 27 Anion Gap 22 H Blood Urea Nitrogen 43 #H Creatinine 6.79 H Glucose Level 152 Calcium Level 7.6 L Total Bilirubin 0.0 L Direct Bilirubin 0.00 Indirect Bilirubin 0.0 Aspartate Amino Transf (AST/SGOT) 19 Alanine Aminotransferase (ALT/SGPT) 16 Alkaline Phosphatase 85 Total Protein 6.5 Albumin 3.2 L Globulin 3.30 H Albumin/Globulin Ratio 0.96 White Blood Count 7.0 Red Blood Count 2.39 L Hemoglobin 7.4 L Hematocrit 25.4 L Mean Corpuscular Volume 106.3 H Mean Corpuscular Hemoglobin 31.0 Mean Corpuscular Hemoglobin Concent 29.1 L Red Cell Distribution Width 15.9 H Platelet Count 123 L Mean Platelet Volume 10.8 H Neutrophils % 75.2 Lymphocytes % 15.0 Monocytes % 6.7 Eosinophils % 2.4 Basophils % 0.3 Nucleated Red Blood Cells % 0.0 Neutrophils # 5.3 Lymphocytes # 1.1 Monocytes # 0.5 Eosinophils # 0.2 Basophils # 0.0 Nucleated Red Blood Cells # 0.0 Phosphorus Level 5.6 H Magnesium Level 1.8 Triglycerides Level 106 Cholesterol Level 114 LDL Cholesterol, Calculated 56 HDL Cholesterol 37 Cholesterol/HDL Ratio 3.0 Thyroid Stimulating Hormone (TSH) 3.890 Free Thyroxine 1.06 Test 07/22/16 07:40 07/22/16 15:00 07/22/16 17:30 07/22/16 20:33 Bedside Glucose 164 264 H 223 H Creatine Kinase 28 Creatine Kinase Index 1.5 Creatinine Kinase MB (Mass) 0.43 Troponin I 0.018 Medications Medications Current Medications Ondansetron HCl (Zofran Inj) 4 mg Q6H PRN IV NAUSEA AND/OR VOMITING; Start at 05:00 Acetaminophen (Tylenol Tab) 650 mg Q6H PRN PO PAIN LEVEL 1-3 OR FEVER; Start at 05:00 Docusate Sodium (Colace) 100 mg Q12H PRN PO CONSTIPATION; Start 07/21/16 at 05: 00 Bisacodyl (Dulcolax) 5 mg DAILY PRN PO CONSTIPATION; Start 07/21/16 at 05:00 Famotidine (Pepcid Iv) 20 mg DAILY IV Last administered on 07/22/16 08:21; Admin Dose 20 MG; Start 07/21/16 at 09:00 Atorvastatin Calcium (Lipitor) 20 mg QHS PO Last administered on 07/22/16 20: 41; Admin Dose 20 MG; Start 07/21/16 at 21:00 Carvedilol (Coreg) 25 mg BID PO Last administered on 07/22/16 20:41; Admin Dose 25 MG; Start 07/21/16 at 09:00 Clonazepam (Klonopin) 1 mg QHS PRN PO ANXIETY Last administered on 07/22/16 22 :41; Admin Dose 1 MG; Start 07/21/16 at 06:00 Doxazosin Mesylate (Cardura) 4 mg DAILY@21 PO Last administered on 07/22/16 20 :41; Admin Dose 4 MG; Start 07/21/16 at 21:00 Gabapentin (Neurontin) 300 mg BID PO Last administered on 07/22/16 20:41; Admin Dose 300 MG; Start 07/21/16 at 09:00 Hydroxyzine HCl (Atarax) 50 mg Q6H PRN PO ITCHING; Start 07/21/16 at 06:00 Paroxetine HCl (Paxil) 20 mg DAILY PO Last administered on 07/22/16 08:22; Admin Dose 20 MG; Start 07/21/16 at 09:00 Miscellaneous Information 1 ea NOTE XX ; Start 07/21/16 at 06:00 Glucose (Glutose) 15 gm Q15M PRN PO DECREASED GLUCOSE; Start 07/21/16 at 06:00 Glucose (Glutose) 22.5 gm Q15M PRN PO DECREASED GLUCOSE; Start 07/21/16 at 06: 00 Dextrose (D50w Syringe) 25 ml Q15M PRN IV DECREASED GLUCOSE; Start 07/21/16 at 06:00 Dextrose (D50w Syringe) 50 ml Q15M PRN IV DECREASED GLUCOSE; Start 07/21/16 at 06:00 Glucagon (Glucagen) 1 mg Q15M PRN IM DECREASED GLUCOSE; Start 07/21/16 at 06:00 Glucose (Glutose) 15 gm Q15M PRN BUCCAL DECREASED GLUCOSE; Start 07/21/16 at 06 :00 Diagnostic Test (Pha) (Accu-Chek) 1 ea 02 XX ; Start 07/22/16 at 02:00 Epoetin Pierce (Epogen (Esrd)) 8,000 units TuThSa@17 SC Last administered on 07/21 16:45; Admin Dose 8,000 UNITS; Start 07/21/16 at 17:00 Insulin Glargine (Lantus) 10 unit DAILY@20 SC Last administered on 07/22/16 20 :39; Admin Dose 10 UNIT; Start 07/21/16 at 20:00 Benazepril HCl (Lotensin) 10 mg DAILY PO ; Start 07/22/16 at 09:00 Isosorbide Dinitrate 10 mg 10 mg TID PO Last administered on 07/22/16 20:40; Admin Dose 10 MG; Start 07/21/16 at 21:00 Piperacillin Sod/ Tazobactam Sod (Zosyn 2.25gm/ 50ml (Pmx)) 50 ml @ 100 mls/hr Q8 IVPB Last administered on 07/22/16 21:02; Admin Dose 100 MLS/HR; Start at 22:00 Morphine Sulfate (morphine) 3 mg Q3H PRN IV PAIN Last administered on 21:01; Admin Dose 3 MG; Start 07/21/16 at 22:30 Miscellaneous Information (*Rx Drug Level Order Reminder*) 1 ONCE ONCE XX ; Start 07/23/16 at 05:00; Stop 07/23/16 at 05:01 Acetaminophen/ Hydrocodone Bitart ([place] (5/325)) 1 tab Q4H PRN PO pain Last administered on 07/22/16 22:41; Admin Dose 1 TAB; Start 07/22/16 at 15:30 BETTIE COLVIN MD July 22, 2016 23:18
[2016-07-23] VITALS (19 sets, daily range): BP systolic 103–144; BP diastolic 48–83; PULSE 50–89; RESP 18–20
[2016-07-23] MEDS: morphine 4 MG/ML VIAL IV PRN ×12 (02:17→23:14)
[2016-07-23] MEDS: ACCU-CHEK XX SCH (02:23)
[2016-07-23] MEDS: PIPER-TAZO 2.25 GM (PMX) 50 ML IVPB SCH ×3 (05:29→21:14)
[2016-07-23] MEDS: LEVOTHYROXINE 75 MCG TAB PO SCH (05:31)
--- NOTE | 2016-07-23 07:02 | PN ---
DATE: 07/22/2016 SUBJECTIVE: No acute changes overnight. No fevers. The patient looks comfortable. WBC 7, platelets 123. No shift. DIAGNOSTICS: CT of the chest from yesterday revealed no evidence of PE or aortic dissection. ANTIMICROBIALS: 1. Vancomycin. 2. Zosyn. PHYSICAL EXAMINATION: GENERAL: Well-developed, well-nourished [place] man, who is in no distress. HEENT: Head atraumatic, normocephalic. Sclerae anicteric. Buccal mucosa dry. NECK: Supple, trachea midline. CHEST: Chest rise is symmetrical. Breath sounds clear. HEART: S1, S2. ABDOMEN: Soft, bowel tones present. EXTREMITIES: Without cyanosis. ASSESSMENT: 1. History of right foot transmetatarsal amputation, with wound VAC present. Rule out infection. 2. Diabetes. 3. End-stage renal disease. 4. Hypertension. 5. Peripheral vascular disease. PLAN: The patient remains stable, covered with broad-spectrum antibiotics. Vascular team on the ca se. Dictated By: MARYLOU SCHNEIDER LABORATORY VETERINARIAN for ARINA ZAVALA/ROD Conf#: [id number] DID#: [id number]
[2016-07-23] MEDS: SEVELAMER 800 MG TAB PO SCH ×3 (07:50→17:36)
[2016-07-23] MEDS: INSULIN ASPART [NOVOLOG] 3 ML PEN SC SCH ×7 (07:53→20:07)
[2016-07-23] MEDS: BENAZEPRIL 10 MG TAB PO SCH (08:30)
[2016-07-23] MEDS: GABAPENTIN 300 MG CAP PO SCH ×2 (08:30→20:03)
[2016-07-23] MEDS: PAROXETINE 20 MG TAB PO SCH (08:30)
[2016-07-23] MEDS: ISOSORBIDE DINITRATE 10 MG TAB PO SCH ×3 (08:30→20:04)
[2016-07-23] MEDS: FAMOTIDINE 20 MG INJ IV SCH (08:30)
--- NOTE | 2016-07-23 13:46 | PN ---
Date/Time of Note Date/Time of Note DATE: 07/23/16 TIME: 13:43 Assessment/Plan VTE Prophylaxis VTE Prophylaxis Intervention: SCD's Lines/Catheters [facility] Saline Lock Urinary Cath still in place: No Assessment/Plan Assessment/Plan 1.atypical chest pain, Postiive stress test 2. ESRD on HD 3. HTN 4 HL 5. PVD s/p right great toe amputation- currently wound vac in placem, IV abx, ID following Plan: HD as per nephrology S/p lexiscan positive cardiology to decide for LHC BP stable will continue to follow up on patient Subjective 24 Hr Interval Summary Free Text/Dictation doing ok, BP stable, afebrile, Exam/Review of Systems Vital Signs Vitals Vital Signs Date Time Temp Pulse Resp B/P Pulse Ox O2 Delivery O2 Flow Rate FiO2 07/23/16 13:01 62 07/23/16 12:12 98.4 18 114/48 94 07/23/16 11:24 Nasal Cannula 2.0 Intake and Output 07/22/16 07/22/16 07/23/16 15:00 23:00 07:00 Intake Total 50 ml 2150 ml 300 ml Output Total 5000 ml Balance 50 ml -2850 ml 300 ml Exam General: This is an obese male sitting in bed in mild distress from pain.. HEENT: Atraumatic, normocephalic. The pupils are equal, round and reactive. Extraocular motor are intact Neck: Supple with full range of motion. No rigidity or meningismus Lungs: Mild crackles at the bases Heart: Systolic murmur at the second right intercostal space radiating to the carotid Abdomen: Soft , nontender, nondraining wound at site of prior surgical incision. Extremities: Right foot toe amputation 5, wound VAC in place, left upper extremity AV fistula. Neurologic: Normal mental status Results Result Diagram: 07/22/16 0559 07/22/16 0558 Results 24 hrs Laboratory Tests Test 07/22/16 15:00 07/22/16 17:30 07/22/16 20:33 07/23/16 02:21 Creatine Kinase 28 Creatine Kinase Index 1.5 Creatinine Kinase MB (Mass) 0.43 Troponin I 0.018 Bedside Glucose 264 H 223 H 191 Test 07/23/16 06:17 07/23/16 07:49 07/23/16 11:57 Random Vancomycin Level 16.7 Bedside Glucose 154 109 Medications Medications Current Medications Ondansetron HCl (Zofran Inj) 4 mg Q6H PRN IV NAUSEA AND/OR VOMITING; Start at 05:00 Acetaminophen (Tylenol Tab) 650 mg Q6H PRN PO PAIN LEVEL 1-3 OR FEVER; Start at 05:00 Docusate Sodium (Colace) 100 mg Q12H PRN PO CONSTIPATION; Start 07/21/16 at 05: 00 Bisacodyl (Dulcolax) 5 mg DAILY PRN PO CONSTIPATION; Start 07/21/16 at 05:00 Famotidine (Pepcid Iv) 20 mg DAILY IV Last administered on 07/23/16 08:30; Admin Dose 20 MG; Start 07/21/16 at 09:00 Atorvastatin Calcium (Lipitor) 20 mg QHS PO Last administered on 07/22/16 20: 41; Admin Dose 20 MG; Start 07/21/16 at 21:00 Carvedilol (Coreg) 25 mg BID PO Last administered on 07/23/16 08:30; Admin Dose 25 MG; Start 07/21/16 at 09:00 Clonazepam (Klonopin) 1 mg QHS PRN PO ANXIETY Last administered on 07/22/16 22 :41; Admin Dose 1 MG; Start 07/21/16 at 06:00 Doxazosin Mesylate (Cardura) 4 mg DAILY@21 PO Last administered on 07/22/16 20 :41; Admin Dose 4 MG; Start 07/21/16 at 21:00 Gabapentin (Neurontin) 300 mg BID PO Last administered on 07/23/16 08:30; Admin Dose 300 MG; Start 07/21/16 at 09:00 Hydroxyzine HCl (Atarax) 50 mg Q6H PRN PO ITCHING; Start 07/21/16 at 06:00 Paroxetine HCl (Paxil) 20 mg DAILY PO Last administered on 07/23/16 08:30; Admin Dose 20 MG; Start 07/21/16 at 09:00 Miscellaneous Information 1 ea NOTE XX ; Start 07/21/16 at 06:00 Glucose (Glutose) 15 gm Q15M PRN PO DECREASED GLUCOSE; Start 07/21/16 at 06:00 Glucose (Glutose) 22.5 gm Q15M PRN PO DECREASED GLUCOSE; Start 07/21/16 at 06: 00 Dextrose (D50w Syringe) 25 ml Q15M PRN IV DECREASED GLUCOSE; Start 07/21/16 at 06:00 Dextrose (D50w Syringe) 50 ml Q15M PRN IV DECREASED GLUCOSE; Start 07/21/16 at 06:00 Glucagon (Glucagen) 1 mg Q15M PRN IM DECREASED GLUCOSE; Start 07/21/16 at 06:00 Glucose (Glutose) 15 gm Q15M PRN BUCCAL DECREASED GLUCOSE; Start 07/21/16 at 06 :00 Diagnostic Test (Pha) (Accu-Chek) 1 ea 02 XX Last administered on 07/23/16 02: 23; Admin Dose 1 EA; Start 07/22/16 at 02:00 Epoetin Pierce (Epogen (Esrd)) 8,000 units TuThSa@17 SC Last administered on 07/21 16:45; Admin Dose 8,000 UNITS; Start 07/21/16 at 17:00 Insulin Glargine (Lantus) 10 unit DAILY@20 SC Last administered on 07/22/16 20 :39; Admin Dose 10 UNIT; Start 07/21/16 at 20:00 Benazepril HCl (Lotensin) 10 mg DAILY PO Last administered on 07/23/16 08:30; Admin Dose 10 MG; Start 07/22/16 at 09:00 Isosorbide Dinitrate 10 mg 10 mg TID PO Last administered on 07/23/16 12:41; Admin Dose 10 MG; Start 07/21/16 at 21:00 Piperacillin Sod/ Tazobactam Sod (Zosyn 2.25gm/ 50ml (Pmx)) 50 ml @ 100 mls/hr Q8 IVPB Last administered on 07/23/16 05:29; Admin Dose 100 MLS/HR; Start at 22:00 Acetaminophen/ Hydrocodone Bitart ([place] (5/325)) 1 tab Q4H PRN PO pain Last administered on 07/22/16 22:41; Admin Dose 1 TAB; Start 07/22/16 at 15:30 Morphine Sulfate 3 mg 3 mg Q2H PRN IV PAIN Last administered on 5/20/17at 13:01 ; Admin Dose 3 MG; Start 07/23/16 at 01:15 Vancomycin HCl (Vancocin) 250 ml @ 125 mls/hr ONCE IVPB ; Start 07/23/16 at 16: 00; Stop 07/23/16 at 17:59 BETTIE COLVIN MD July 23, 2016 13:45
--- NOTE | 2016-07-23 14:15 | CONS ---
Date/Time of Note Date/Time of Note DATE: 07/23/16 TIME: 14:15 Assessment/Plan Assessment/Plan Chief Complaint/Hosp Course ID PROGRESS NOTE TOTAL ABX DAY # => Vanco IV + Zosyn 24H INTERVAL SUMMARY * No fevers-> VSS, in HD today, reporting 8/10 foot pain requesting pain meds * Wound vac intact -- wound w/yellow slough PHYSICAL EXAMINATION: GENERAL: VSS, NAD, obese M HEENT: Unremarkable except for reina NECK: Supple, trach midline CHEST: Equal chest rise bilaterally, without tachypnea HEART: RRR ABDOMEN: Large, soft EXTREMITIES: Warm => Wound vac in tact SKIN: Warm, dry ID ASSESSMENT: 61 yo M admitted with: 1. History of right foot transmetatarsal amputation, with wound VAC present. Rule out infection. 2. Diabetes. 3. End-stage renal disease. 4. Hypertension. 5. Peripheral vascular disease. (-)MRSA Nares INVASIVES: * ABX ALLERGIES: KNDA CURRENT ABX: TOTAL ABX DAY # => Vanco IV + Zosyn ID RECOMMENDATIONS: 1. Continue ABX over the weekend => Further recs pending ID colleague f/u after the weekend. 2. Follow APC recommendations, wound vac. . Problems: Consultation Date/Type/Reason Admit Date/Time July 21, 2016 at 02:28 Initial Consult Date 07/21/16 Type of Consultation: ID Referring Provider: STACEY ENWTON Exam/Review of Systems Vital Signs Vitals Vital Signs Date Time Temp Pulse Resp B/P Pulse Ox O2 Delivery O2 Flow Rate FiO2 07/23/16 13:01 62 07/23/16 12:12 98.4 18 114/48 94 07/23/16 11:24 Nasal Cannula 2.0 Intake and Output 07/22/16 07/22/16 07/23/16 15:00 23:00 07:00 Intake Total 50 ml 2150 ml 300 ml Output Total 5000 ml Balance 50 ml -2850 ml 300 ml Results Result Diagram: 07/22/16 0559 07/22/16 0558 Results 24 hrs Laboratory Tests Test 07/22/16 15:00 07/22/16 17:30 07/22/16 20:33 07/23/16 02:21 Creatine Kinase 28 Creatine Kinase Index 1.5 Creatinine Kinase MB (Mass) 0.43 Troponin I 0.018 Bedside Glucose 264 H 223 H 191 Test 07/23/16 06:17 07/23/16 07:49 07/23/16 11:57 Random Vancomycin Level 16.7 Bedside Glucose 154 109 Medications Medications Current Medications Ondansetron HCl (Zofran Inj) 4 mg Q6H PRN IV NAUSEA AND/OR VOMITING; Start at 05:00 Acetaminophen (Tylenol Tab) 650 mg Q6H PRN PO PAIN LEVEL 1-3 OR FEVER; Start at 05:00 Docusate Sodium (Colace) 100 mg Q12H PRN PO CONSTIPATION; Start 07/21/16 at 05: 00 Bisacodyl (Dulcolax) 5 mg DAILY PRN PO CONSTIPATION; Start 07/21/16 at 05:00 Famotidine (Pepcid Iv) 20 mg DAILY IV Last administered on 07/23/16 08:30; Admin Dose 20 MG; Start 07/21/16 at 09:00 Atorvastatin Calcium (Lipitor) 20 mg QHS PO Last administered on 07/22/16 20: 41; Admin Dose 20 MG; Start 07/21/16 at 21:00 Carvedilol (Coreg) 25 mg BID PO Last administered on 07/23/16 08:30; Admin Dose 25 MG; Start 07/21/16 at 09:00 Clonazepam (Klonopin) 1 mg QHS PRN PO ANXIETY Last administered on 07/22/16 22 :41; Admin Dose 1 MG; Start 07/21/16 at 06:00 Doxazosin Mesylate (Cardura) 4 mg DAILY@21 PO Last administered on 07/22/16 20 :41; Admin Dose 4 MG; Start 07/21/16 at 21:00 Gabapentin (Neurontin) 300 mg BID PO Last administered on 07/23/16 08:30; Admin Dose 300 MG; Start 07/21/16 at 09:00 Hydroxyzine HCl (Atarax) 50 mg Q6H PRN PO ITCHING; Start 07/21/16 at 06:00 Paroxetine HCl (Paxil) 20 mg DAILY PO Last administered on 07/23/16 08:30; Admin Dose 20 MG; Start 07/21/16 at 09:00 Miscellaneous Information 1 ea NOTE XX ; Start 07/21/16 at 06:00 Glucose (Glutose) 15 gm Q15M PRN PO DECREASED GLUCOSE; Start 07/21/16 at 06:00 Glucose (Glutose) 22.5 gm Q15M PRN PO DECREASED GLUCOSE; Start 07/21/16 at 06: 00 Dextrose (D50w Syringe) 25 ml Q15M PRN IV DECREASED GLUCOSE; Start 07/21/16 at 06:00 Dextrose (D50w Syringe) 50 ml Q15M PRN IV DECREASED GLUCOSE; Start 07/21/16 at 06:00 Glucagon (Glucagen) 1 mg Q15M PRN IM DECREASED GLUCOSE; Start 07/21/16 at 06:00 Glucose (Glutose) 15 gm Q15M PRN BUCCAL DECREASED GLUCOSE; Start 07/21/16 at 06 :00 Diagnostic Test (Pha) (Accu-Chek) 1 ea 02 XX Last administered on 07/23/16 02: 23; Admin Dose 1 EA; Start 07/22/16 at 02:00 Epoetin Pierce (Epogen (Esrd)) 8,000 units TuThSa@17 SC Last administered on 07/21 16:45; Admin Dose 8,000 UNITS; Start 07/21/16 at 17:00 Insulin Glargine (Lantus) 10 unit DAILY@20 SC Last administered on 07/22/16 20 :39; Admin Dose 10 UNIT; Start 07/21/16 at 20:00 Benazepril HCl (Lotensin) 10 mg DAILY PO Last administered on 07/23/16 08:30; Admin Dose 10 MG; Start 07/22/16 at 09:00 Isosorbide Dinitrate 10 mg 10 mg TID PO Last administered on 07/23/16 12:41; Admin Dose 10 MG; Start 07/21/16 at 21:00 Piperacillin Sod/ Tazobactam Sod (Zosyn 2.25gm/ 50ml (Pmx)) 50 ml @ 100 mls/hr Q8 IVPB Last administered on 07/23/16 05:29; Admin Dose 100 MLS/HR; Start at 22:00 Acetaminophen/ Hydrocodone Bitart ([place] (5/325)) 1 tab Q4H PRN PO pain Last administered on 07/22/16 22:41; Admin Dose 1 TAB; Start 07/22/16 at 15:30 Morphine Sulfate 3 mg 3 mg Q2H PRN IV PAIN Last administered on 07/23/16t 13:01 ; Admin Dose 3 MG; Start 07/23/16 at 01:15 Vancomycin HCl (Vancocin) 250 ml @ 125 mls/hr ONCE IVPB ; Start 07/23/16 at 16: 00; Stop 07/23/16 at 17:59 ZIGGY TEE NP July 23, 2016 14:15
[2016-07-23] MEDS ORDERED: VANCOMYCIN 1 GM in NS 250 ML IVPB SCH (16:00)
--- NOTE | 2016-07-23 16:36 | CONS ---
Date/Time of Note Date/Time of Note DATE: 07/23/16 TIME: 16:29 Assessment/Plan Assessment/Plan Additional Assessment/Plan Typical Chest Pain Abnormal electrocardiogram coronary artery disease, status post coronary artery bypass graft surgery. Ischemic cardiomyopathy Hypertension. Dyslipidemia. Peripheral arterial disease, status post right transmetatarsal amputation. End-stage renal disease on hemodialysis. Anemia Positive stress Test Recommend Cardiac cath Continue Coreg Continue Benazepril continue Insulin Continue Lipitor HD as scheduled Consultation Date/Type/Reason Admit Date/Time July 21, 2016 at 02:28 Constitutional: improved, no complaints Eyes: no complaints, No discharge, No other, No pain, No redness, No visual change ENT: no complaints, No bleeding, No congestion, No discharge, No dysphagia, No other, No pain, No sore throat Respiratory: no complaints, No cough, No other, No pain, No pleuritic pain, No shortness of breath, No sputum, No wheezing Cardiovascular: chest pain, No edema, No lightheadedness, No no complaints, No orthopenea, No other, No palpitations, No paroxysmal nocturnal dyspnea Gastrointestinal: no complaints Genitourinary: no complaints Psychological: no complaints Social History Alcohol Use: none Smoking Status: Current every day smoker (Half pack per day 46 years) Drug Use: none Exam/Review of Systems Vital Signs Vitals Vital Signs Date Time Temp Pulse Resp B/P Pulse Ox O2 Delivery O2 Flow Rate FiO2 07/23/16 16:27 97.9 88 18 103/51 94 07/23/16 11:24 Nasal Cannula 2.0 Intake and Output 07/22/16 07/22/16 07/23/16 15:00 23:00 07:00 Intake Total 50 ml 2150 ml 300 ml Output Total 5000 ml Balance 50 ml -2850 ml 300 ml Results Result Diagram: 07/22/16 0559 07/22/16 0558 Results 24 hrs Laboratory Tests Test 07/22/16 17:30 07/22/16 20:33 07/23/16 02:21 07/23/16 06:17 Bedside Glucose 264 H 223 H 191 Random Vancomycin Level 16.7 Test 07/23/16 07:49 07/23/16 11:57 Bedside Glucose 154 109 Medications Medications Current Medications Ondansetron HCl (Zofran Inj) 4 mg Q6H PRN IV NAUSEA AND/OR VOMITING; Start at 05:00 Acetaminophen (Tylenol Tab) 650 mg Q6H PRN PO PAIN LEVEL 1-3 OR FEVER; Start at 05:00 Docusate Sodium (Colace) 100 mg Q12H PRN PO CONSTIPATION; Start 07/21/16 at 05: 00 Bisacodyl (Dulcolax) 5 mg DAILY PRN PO CONSTIPATION; Start 07/21/16 at 05:00 Famotidine (Pepcid Iv) 20 mg DAILY IV Last administered on 07/23/16 08:30; Admin Dose 20 MG; Start 07/21/16 at 09:00 Atorvastatin Calcium (Lipitor) 20 mg QHS PO Last administered on 07/22/16 20: 41; Admin Dose 20 MG; Start 07/21/16 at 21:00 Carvedilol (Coreg) 25 mg BID PO Last administered on 07/23/16 08:30; Admin Dose 25 MG; Start 07/21/16 at 09:00 Clonazepam (Klonopin) 1 mg QHS PRN PO ANXIETY Last administered on 07/22/16 22 :41; Admin Dose 1 MG; Start 07/21/16 at 06:00 Doxazosin Mesylate (Cardura) 4 mg DAILY@21 PO Last administered on 07/22/16 20 :41; Admin Dose 4 MG; Start 07/21/16 at 21:00 Gabapentin (Neurontin) 300 mg BID PO Last administered on 07/23/16 08:30; Admin Dose 300 MG; Start 07/21/16 at 09:00 Hydroxyzine HCl (Atarax) 50 mg Q6H PRN PO ITCHING; Start 07/21/16 at 06:00 Paroxetine HCl (Paxil) 20 mg DAILY PO Last administered on 07/23/16 08:30; Admin Dose 20 MG; Start 07/21/16 at 09:00 Miscellaneous Information 1 ea NOTE XX ; Start 07/21/16 at 06:00 Glucose (Glutose) 15 gm Q15M PRN PO DECREASED GLUCOSE; Start 07/21/16 at 06:00 Glucose (Glutose) 22.5 gm Q15M PRN PO DECREASED GLUCOSE; Start 07/21/16 at 06: 00 Dextrose (D50w Syringe) 25 ml Q15M PRN IV DECREASED GLUCOSE; Start 07/21/16 at 06:00 Dextrose (D50w Syringe) 50 ml Q15M PRN IV DECREASED GLUCOSE; Start 07/21/16 at 06:00 Glucagon (Glucagen) 1 mg Q15M PRN IM DECREASED GLUCOSE; Start 07/21/16 at 06:00 Glucose (Glutose) 15 gm Q15M PRN BUCCAL DECREASED GLUCOSE; Start 07/21/16 at 06 :00 Diagnostic Test (Pha) (Accu-Chek) 1 ea 02 XX Last administered on 07/23/16 02: 23; Admin Dose 1 EA; Start 07/22/16 at 02:00 Epoetin Pierce (Epogen (Esrd)) 8,000 units TuThSa@17 SC Last administered on 07/21 16:45; Admin Dose 8,000 UNITS; Start 07/21/16 at 17:00 Insulin Glargine (Lantus) 10 unit DAILY@20 SC Last administered on 07/22/16 20 :39; Admin Dose 10 UNIT; Start 07/21/16 at 20:00 Benazepril HCl (Lotensin) 10 mg DAILY PO Last administered on 07/23/16 08:30; Admin Dose 10 MG; Start 07/22/16 at 09:00 Isosorbide Dinitrate 10 mg 10 mg TID PO Last administered on 07/23/16 12:41; Admin Dose 10 MG; Start 07/21/16 at 21:00 Piperacillin Sod/ Tazobactam Sod (Zosyn 2.25gm/ 50ml (Pmx)) 50 ml @ 100 mls/hr Q8 IVPB Last administered on 07/23/16 14:54; Admin Dose 100 MLS/HR; Start at 22:00 Acetaminophen/ Hydrocodone Bitart ([place] (5/325)) 1 tab Q4H PRN PO pain Last administered on 07/22/16 22:41; Admin Dose 1 TAB; Start 07/22/16 at 15:30 Morphine Sulfate 3 mg 3 mg Q2H PRN IV PAIN Last administered on 07/23/16 14:49 ; Admin Dose 3 MG; Start 07/23/16 at 01:15 Vancomycin HCl (Vancocin) 250 ml @ 125 mls/hr ONCE IVPB ; Start 07/23/16 at 16: 00; Stop 07/23/16 at 17:59 LORENZO CUNNINGHAM M.D. July 23, 2016 16:36
[2016-07-23] MEDS: EPOETIN 4000 UNITS/1 ML INJ (ESRD) SC SCH (16:55)
[2016-07-23] MEDS: ATORVASTATIN 20 MG TAB PO SCH (20:04)
[2016-07-23] MEDS: DOXAZOSIN 4 MG TAB PO SCH (20:04)
[2016-07-23] MEDS: INSULIN GLARGINE [LANtus] 3 ML PEN SC SCH (20:08)
--- NOTE | 2016-07-23 20:28 | PN ---
Date/Time of Note Date/Time of Note DATE: 07/23/16 TIME: 20:23 Assessment/Plan Lines/Catheters IV Catheter Type (from [facility]): Saline Lock Mott in Place (from [facility]): No Assessment/Plan Chief Complaint/Hosp Course -Bilateral lower extremity atherosclerosis with gangrene: It seems the patient' s new revascularization from the right axillary to femoral has perfused the right lower extremity. The patient has also undergone a new open transmetatarsal amputation with possible posterior flap that may be able to allow good granulation tissue develop with the wound VAC negative pressure system and allow for adequate wound healing. At the moment, the patient does have some drainage from the lateral aspect of the wound. From a vascular surgery standpoint, the patient has had his revascularization in terms of inflow and no further intervention will be needed from our standpoint for now. We will offer the patient to undergo debridement and possible revision of his transmetatarsal amputation stump and will plan to follow the wound's progress. Would recommend for secondary wound closure in order to allow for adequate granulation tissue development. -Optimize vascular status (BP meds, diet, nutrition, exercise, sugar control, antiplatelets, weight loss). -End-stage renal disease on hemodialysis Monday, Monday, Monday. Currently, the patient is tolerating his fistula via his left upper extremity for his dialysis sessions. We will plan to schedule the patient for eventual fistula ultrasound and to monitor its progress for now. -Discussed smoking cessation with the patient as he is an active smoker about 1/ 2 pack to 1 pack per day for 46 years. -Discussed findings, plan and management with the patient and he understands. -No further vascular intervention at this time. We will plan to follow his debridement and eventual secondary closure of his wound and only intervene if needed. This will be a difficult task as the patient would likely require an antegrade access for any intervention. -Thank you for allowing us to partake in the care of your patient. Please call with any questions. Problems: Subjective 24 Hr Interval Summary no new vascular events overnight Exam/Review of Systems Vital Signs Vitals Vital Signs Date Time Temp Pulse Resp B/P Pulse Ox O2 Delivery O2 Flow Rate FiO2 07/23/16 19:38 97.7 70 18 134/62 95 07/23/16 11:24 Nasal Cannula 2.0 Intake and Output 07/22/16 07/22/16 07/23/16 15:00 23:00 07:00 Intake Total 50 ml 2150 ml 300 ml Output Total 5000 ml Balance 50 ml -2850 ml 300 ml Exam Free Text/Dictation GENERAL: Alert and oriented x3 PULMONARY: Coarse breath sounds bilaterally, some crackles at the bases. CARDIOVASCULAR: S1, S2 present. ABDOMEN: Soft, nontender, nondistended. Bowel sounds positive. Surgical midline incision is well healed with some areas of granulation tissue. Truncal obesity. EXTREMITIES: 1. Right upper extremity: Palpable brachial pulse. Motor, sensory intact. Cap refill 2 to 3 seconds. Axillofemoral bypass near collarbone palpable 2. Left upper extremity: Palpable brachial pulse. Motor, sensory intact. Cap refill 2 to 3 seconds. Axillary to femoral bypass palpable. 3. Right lower extremity: Palpable femoral pulse, nonpalpable pedal pulse. Motor, sensory intact. Capillary refill 3 to 4 seconds. Open TMA stump with wound VAC intact. 4. Left lower extremity: Palpable femoral pulse. Surgical scar is well healed. Nonpalpable pedal pulse. Motor and sensory intact. Capillary refill 3 to 4 seconds. Results Result Diagram: 07/22/16 0559 07/22/16 0558 LUZ MARIN MD July 23, 2016 20:28
[2016-07-23] MEDS: ATORVASTATIN 40 MG TAB PO SCH (21:00)
[2016-07-24] VITALS (12 sets, daily range): BP systolic 101–130; BP diastolic 40–71; PULSE 63–105; RESP 16–20
[2016-07-24] MEDS: morphine 4 MG/ML VIAL IV PRN ×12 (01:08→23:51)
[2016-07-24] MEDS: ACCU-CHEK XX SCH (02:00)
[2016-07-24] MEDS: PIPER-TAZO 2.25 GM (PMX) 50 ML IVPB SCH ×3 (05:00→22:00)
[2016-07-24] MEDS: LEVOTHYROXINE 75 MCG TAB PO SCH (06:37)
[2016-07-24] MEDS: INSULIN ASPART [NOVOLOG] 3 ML PEN SC SCH ×7 (07:55→20:14)
[2016-07-24] MEDS: BENAZEPRIL 10 MG TAB PO SCH (08:57)
[2016-07-24] MEDS: SEVELAMER 800 MG TAB PO SCH ×3 (08:57→17:49)
[2016-07-24] MEDS: ISOSORBIDE DINITRATE 10 MG TAB PO SCH ×3 (08:57→20:13)
[2016-07-24] MEDS: FAMOTIDINE 20 MG INJ IV SCH (08:57)
[2016-07-24] MEDS: GABAPENTIN 300 MG CAP PO SCH ×2 (08:57→20:11)
[2016-07-24] MEDS: PAROXETINE 20 MG TAB PO SCH (08:57)
--- NOTE | 2016-07-24 11:53 | CONS ---
Date/Time of Note Date/Time of Note DATE: 07/24/16 TIME: 11:51 Assessment/Plan Assessment/Plan Additional Assessment/Plan Typical Chest Pain Abnormal electrocardiogram coronary artery disease, status post coronary artery bypass graft surgery. Ischemic cardiomyopathy Hypertension. Dyslipidemia. Peripheral arterial disease, status post right transmetatarsal amputation. End-stage renal disease on hemodialysis. Anemia Positive stress Test Recommend Cardiac cath Continue Imdur Continue Coreg Continue Benazepril continue Insulin Continue Lipitor HD as scheduled Monitor on telemetry Consultation Date/Type/Reason Admit Date/Time July 21, 2016 at 02:28 Initial Consult Date 07/21/16 Type of Consultation: ID Referring Provider: STACEY NEWTON Exam/Review of Systems Vital Signs Vitals Vital Signs Date Time Temp Pulse Resp B/P Pulse Ox O2 Delivery O2 Flow Rate FiO2 07/24/16 08:21 105 07/24/16 07:58 98.0 16 130/63 99 07/23/16 22:32 Nasal Cannula 2.0 Intake and Output 07/23/16 07/23/16 07/24/16 15:00 23:00 07:00 Intake Total 500 ml 970 ml Output Total 4500 ml Balance -4000 ml 970 ml Exam Constitutional: alert, oriented Head: atraumatic, normocephalic Neck: non-tender, supple Respiratory: clear to auscultation Cardiovascular: regular rate and rhythm Extremities: normal pulses Results Result Diagram: 07/22/16 0559 07/22/16 0558 Results 24 hrs Laboratory Tests Test 07/23/16 11:57 07/23/16 17:01 07/23/16 20:02 07/24/16 03:00 Bedside Glucose 109 290 H 274 H 182 Test 07/24/16 08:18 Bedside Glucose 169 Medications Medications Current Medications Ondansetron HCl (Zofran Inj) 4 mg Q6H PRN IV NAUSEA AND/OR VOMITING; Start at 05:00 Acetaminophen (Tylenol Tab) 650 mg Q6H PRN PO PAIN LEVEL 1-3 OR FEVER; Start at 05:00 Docusate Sodium (Colace) 100 mg Q12H PRN PO CONSTIPATION; Start 07/21/16 at 05: 00 Bisacodyl (Dulcolax) 5 mg DAILY PRN PO CONSTIPATION; Start 07/21/16 at 05:00 Famotidine (Pepcid Iv) 20 mg DAILY IV Last administered on 07/24/16 08:57; Admin Dose 20 MG; Start 07/21/16 at 09:00 Atorvastatin Calcium (Lipitor) 20 mg QHS PO Last administered on 07/23/16 20: 04; Admin Dose 20 MG; Start 07/21/16 at 21:00 Carvedilol (Coreg) 25 mg BID PO Last administered on 07/24/16 08:57; Admin Dose 25 MG; Start 07/21/16 at 09:00 Clonazepam (Klonopin) 1 mg QHS PRN PO ANXIETY Last administered on 07/22/16 22 :41; Admin Dose 1 MG; Start 07/21/16 at 06:00 Doxazosin Mesylate (Cardura) 4 mg DAILY@21 PO Last administered on 07/23/16 20 :04; Admin Dose 4 MG; Start 07/21/16 at 21:00 Gabapentin (Neurontin) 300 mg BID PO Last administered on 07/24/16 08:57; Admin Dose 300 MG; Start 07/21/16 at 09:00 Hydroxyzine HCl (Atarax) 50 mg Q6H PRN PO ITCHING; Start 07/21/16 at 06:00 Paroxetine HCl (Paxil) 20 mg DAILY PO Last administered on 07/24/16 08:57; Admin Dose 20 MG; Start 07/21/16 at 09:00 Miscellaneous Information 1 ea NOTE XX ; Start 07/21/16 at 06:00 Glucose (Glutose) 15 gm Q15M PRN PO DECREASED GLUCOSE; Start 07/21/16 at 06:00 Glucose (Glutose) 22.5 gm Q15M PRN PO DECREASED GLUCOSE; Start 07/21/16 at 06: 00 Dextrose (D50w Syringe) 25 ml Q15M PRN IV DECREASED GLUCOSE; Start 07/21/16 at 06:00 Dextrose (D50w Syringe) 50 ml Q15M PRN IV DECREASED GLUCOSE; Start 07/21/16 at 06:00 Glucagon (Glucagen) 1 mg Q15M PRN IM DECREASED GLUCOSE; Start 07/21/16 at 06:00 Glucose (Glutose) 15 gm Q15M PRN BUCCAL DECREASED GLUCOSE; Start 07/21/16 at 06 :00 Diagnostic Test (Pha) (Accu-Chek) 1 ea 02 XX Last administered on 07/24/16 02: 00; Admin Dose 1 EA; Start 07/22/16 at 02:00 Epoetin Pierce (Epogen (Esrd)) 8,000 units TuThSa@17 SC Last administered on 07/23 16:55; Admin Dose 8,000 UNITS; Start 07/21/16 at 17:00 Insulin Glargine (Lantus) 10 unit DAILY@20 SC Last administered on 07/23/16 20 :08; Admin Dose 10 UNIT; Start 07/21/16 at 20:00 Benazepril HCl (Lotensin) 10 mg DAILY PO Last administered on 07/24/16 08:57; Admin Dose 10 MG; Start 07/22/16 at 09:00 Isosorbide Dinitrate 10 mg 10 mg TID PO Last administered on 07/24/16 08:57; Admin Dose 10 MG; Start 07/21/16 at 21:00 Piperacillin Sod/ Tazobactam Sod (Zosyn 2.25gm/ 50ml (Pmx)) 50 ml @ 100 mls/hr Q8 IVPB Last administered on 07/24/16 05:00; Admin Dose 100 MLS/HR; Start at 22:00 Acetaminophen/ Hydrocodone Bitart ([place] (5/325)) 1 tab Q4H PRN PO pain Last administered on 07/22/16 22:41; Admin Dose 1 TAB; Start 07/22/16 at 15:30 Morphine Sulfate (morphine) 3 mg Q2H PRN IV PAIN Last administered on 10:50; Admin Dose 3 MG; Start 07/23/16 at 01:15 Atorvastatin Calcium (Lipitor) 40 mg HS PO ; Start 07/23/16 at 21:00 LORENZO CUNNINGHAM M.D. July 24, 2016 11:53
--- NOTE | 2016-07-24 13:24 | RADRPT ---
PROCEDURE: CT Brain without contrast. CLINICAL INDICATION: Headache. Evaluate for intracranial hemorrhage. TECHNIQUE: A multiplanar CT of the brain was performed on a CT scanner utilizing axial imaging fro m the skull base through the vertex without IV contrast. The CTDIvol is 44.52 mGy and the DLP is 72 0.23 mGycm. One or more of the following dose reduction techniques were utilized: Automated exposu re control, adjustment of the mA and/or kV according to patient size, use of iterative reconstructio n technique. COMPARISON: None FINDINGS: No evidence of intracranial hemorrhage or abnormal extra-axial fluid collection. The brain parenchyma is normal attenuation morphology with preservation of palma white differentiatio n and age appropriate size of the ventricles and subarachnoid spaces. Physiologic basal ganglia calc ifications. Atherosclerotic calcification of the internal carotid and vertebral arteries. The basal cisterns, posterior fossa contents, brainstem, craniocervical junction, orbits, pituitary axis, paranasal sinuses, mastoid air cells, and calvarium are unremarkable. IMPRESSION: 1. No intracranial hemorrhage or acute intracranial abnormality. 2. Early ischemic injury may be occult to CT imaging and diffusion weighted MRI may be considered a s clinically warranted. RPTAT:AAJJ Physician Brown Date Time Electronically viewed and signed by Physician Brown on 07/24/2016 13:24 LIZZ/
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
--- NOTE | 2016-07-24 13:45 | RADRPT ---
PROCEDURE: XR Ankle. CLINICAL INDICATION: Pain TECHNIQUE: AP, oblique and lateral views of the right ankle were performed. COMPARISON: None. FINDINGS: There is normal mineralization and alignment. No fracture or osseous lesion is identified. The joint s are normal. No soft tissue abnormality is present. IMPRESSION: No acute bony abnormality RPTAT: QQ .Mireya Weaver MD, MD Date Time Electronically viewed and signed by .Mireya Weaver MD, on 07/24/2016 13:44 .M/
[2016-07-24 13:59] LABS: ADD SCAN DIFF NO
[2016-07-24 14:11] LABS: BASOPHILS % 0.4 % (0.0-2.0); EOSINOPHILS # 0.2 10^3/ul (0.0-0.5); EOSINOPHILS % 2.6 % (0.0-7.0); HEMOGLOBIN 9.6 g/dl (14.0-18.0); LYMPHOCYTES # 0.9 10^3/ul (0.8-2.9); LYMPHOCYTES % 11.5 % (15.0-51.0); MEAN CORPUSCULAR HGB CONC 29.1 g/dl (32.0-37.0); MEAN CORPUSCULAR VOLUME 106.5 fl (82.0-101.0); MEAN PLATELET VOLUME 10.2 fl (7.4-10.4); MONOCYTE # 0.6 10^3/ul (0.3-0.9); MONOCYTES % 7.3 % (0.0-11.0); NEUTROPHIL # 6.3 10^3/ul (1.6-7.5); NEUTROPHILS % 77.8 % (39.0-77.0); PLATELET COUNT 170 10^3/UL (140-415); RED CELL DISTRIBUTION WIDTH 17.2 % (11.5-14.5); WHITE BLOOD COUNT 8.1 10^3/ul (4.8-10.8)
[2016-07-24 14:18] LABS: CALCIUM 7.8 mg/dl (8.4-10.2); CREATININE 5.61 mg/dl (0.61-1.24); POTASSIUM 4.7 mmol/L (3.5-5.1)
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
--- NOTE | 2016-07-24 14:32 | PN ---
Date/Time of Note Date/Time of Note DATE: 07/24/16 TIME: 14:28 Assessment/Plan VTE Prophylaxis VTE Prophylaxis Intervention: heparin Lines/Catheters IV Catheter Type (from Nrsg): Saline Lock Urinary Cath still in place: No Assessment/Plan Assessment/Plan 1.atypical chest pain, Postiive stress test 2. ESRD on HD 3. HTN 4 HL 5. PVD s/p right great toe amputation- currently wound vac in placem, IV abx, ID following Plan: HD as per nephrology - as per S/p lexiscan positive cardiology to decide for LHC - recommedned Cath but Tatyana to decide for cath on Monday BP stable heparin for DVT prophylaxis ID to decide for final Abx recommendation to help in discharge planning pt has wound vac in place, need home health set up and confirmation about it before final d/c plan Subjective 24 Hr Interval Summary Free Text/Dictation lexiscan positive, cardiology to decide for Cath on Monday, still has wound vac , on IV abx, need ID recommednations fo Adriel abx Exam/Review of Systems Vital Signs Vitals Vital Signs Date Time Temp Pulse Resp B/P Pulse Ox O2 Delivery O2 Flow Rate FiO2 07/24/16 12:49 68 07/24/16 12:24 98.7 16 104/40 93 07/23/16 22:32 Nasal Cannula 2.0 Intake and Output 07/23/16 07/23/16 07/24/16 15:00 23:00 07:00 Intake Total 500 ml 970 ml Output Total 4500 ml Balance -4000 ml 970 ml Exam GENERAL: VSS, NAD, obese M HEENT: Unremarkable except for reina NECK: Supple, trach midline CHEST: Equal chest rise bilaterally, without tachypnea HEART: RRR ABDOMEN: Large, soft EXTREMITIES: Warm => Wound vac in tact SKIN: Warm, dr Results Result Diagram: 07/24/16 1350 07/24/16 1350 Results 24 hrs Laboratory Tests Test 07/23/16 17:01 07/23/16 20:02 07/24/16 03:00 07/24/16 08:18 Bedside Glucose 290 H 274 H 182 169 Test 07/24/16 12:18 07/24/16 13:50 Bedside Glucose 172 White Blood Count 8.1 Red Blood Count 3.10 #L Hemoglobin 9.6 #L Hematocrit 33.0 #L Mean Corpuscular Volume 106.5 H Mean Corpuscular Hemoglobin 31.0 Mean Corpuscular Hemoglobin Concent 29.1 L Red Cell Distribution Width 17.2 H Platelet Count 170 # Mean Platelet Volume 10.2 Neutrophils % 77.8 H Lymphocytes % 11.5 L Monocytes % 7.3 Eosinophils % 2.6 Basophils % 0.4 Nucleated Red Blood Cells % 0.0 Neutrophils # 6.3 Lymphocytes # 0.9 Monocytes # 0.6 Eosinophils # 0.2 Basophils # 0.0 Nucleated Red Blood Cells # 0.0 Sodium Level 142 Potassium Level 4.7 Chloride Level 104 Carbon Dioxide Level 25 Anion Gap 18 H Blood Urea Nitrogen 26 H Creatinine 5.61 H Glucose Level 126 Calcium Level 7.8 L Medications Medications Current Medications Ondansetron HCl (Zofran Inj) 4 mg Q6H PRN IV NAUSEA AND/OR VOMITING; Start at 05:00 Acetaminophen (Tylenol Tab) 650 mg Q6H PRN PO PAIN LEVEL 1-3 OR FEVER; Start at 05:00 Docusate Sodium (Colace) 100 mg Q12H PRN PO CONSTIPATION; Start 07/21/16 at 05: 00 Bisacodyl (Dulcolax) 5 mg DAILY PRN PO CONSTIPATION; Start 07/21/16 at 05:00 Famotidine (Pepcid Iv) 20 mg DAILY IV Last administered on 07/24/16 08:57; Admin Dose 20 MG; Start 07/21/16 at 09:00 Atorvastatin Calcium (Lipitor) 20 mg QHS PO Last administered on 07/23/16 20: 04; Admin Dose 20 MG; Start 07/21/16 at 21:00 Carvedilol (Coreg) 25 mg BID PO Last administered on 07/24/16 08:57; Admin Dose 25 MG; Start 07/21/16 at 09:00 Clonazepam (Klonopin) 1 mg QHS PRN PO ANXIETY Last administered on 07/22/16 22 :41; Admin Dose 1 MG; Start 07/21/16 at 06:00 Doxazosin Mesylate (Cardura) 4 mg DAILY@21 PO Last administered on 07/23/16 20 :04; Admin Dose 4 MG; Start 07/21/16 at 21:00 Gabapentin (Neurontin) 300 mg BID PO Last administered on 07/24/16 08:57; Admin Dose 300 MG; Start 07/21/16 at 09:00 Hydroxyzine HCl (Atarax) 50 mg Q6H PRN PO ITCHING; Start 07/21/16 at 06:00 Paroxetine HCl (Paxil) 20 mg DAILY PO Last administered on 07/24/16 08:57; Admin Dose 20 MG; Start 07/21/16 at 09:00 Miscellaneous Information 1 ea NOTE XX ; Start 07/21/16 at 06:00 Glucose (Glutose) 15 gm Q15M PRN PO DECREASED GLUCOSE; Start 07/21/16 at 06:00 Glucose (Glutose) 22.5 gm Q15M PRN PO DECREASED GLUCOSE; Start 07/21/16 at 06: 00 Dextrose (D50w Syringe) 25 ml Q15M PRN IV DECREASED GLUCOSE; Start 07/21/16 at 06:00 Dextrose (D50w Syringe) 50 ml Q15M PRN IV DECREASED GLUCOSE; Start 07/21/16 at 06:00 Glucagon (Glucagen) 1 mg Q15M PRN IM DECREASED GLUCOSE; Start 07/21/16 at 06:00 Glucose (Glutose) 15 gm Q15M PRN BUCCAL DECREASED GLUCOSE; Start 07/21/16 at 06 :00 Diagnostic Test (Pha) (Accu-Chek) 1 ea 02 XX Last administered on 07/24/16 02: 00; Admin Dose 1 EA; Start 07/22/16 at 02:00 Epoetin Pierce (Epogen (Esrd)) 8,000 units TuThSa@17 SC Last administered on 07/23 16:55; Admin Dose 8,000 UNITS; Start 07/21/16 at 17:00 Insulin Glargine (Lantus) 10 unit DAILY@20 SC Last administered on 07/23/16 20 :08; Admin Dose 10 UNIT; Start 07/21/16 at 20:00 Benazepril HCl (Lotensin) 10 mg DAILY PO Last administered on 07/24/16 08:57; Admin Dose 10 MG; Start 07/22/16 at 09:00 Isosorbide Dinitrate 10 mg 10 mg TID PO Last administered on 07/24/16 08:57; Admin Dose 10 MG; Start 07/21/16 at 21:00 Piperacillin Sod/ Tazobactam Sod (Zosyn 2.25gm/ 50ml (Pmx)) 50 ml @ 100 mls/hr Q8 IVPB Last administered on 07/24/16 05:00; Admin Dose 100 MLS/HR; Start at 22:00 Acetaminophen/ Hydrocodone Bitart ([place] (5/325)) 1 tab Q4H PRN PO pain Last administered on 07/22/16 22:41; Admin Dose 1 TAB; Start 07/22/16 at 15:30 Morphine Sulfate (morphine) 3 mg Q2H PRN IV PAIN Last administered on 12:53; Admin Dose 3 MG; Start 07/23/16 at 01:15 Atorvastatin Calcium (Lipitor) 40 mg HS PO ; Start 07/23/16 at 21:00 BETTIE COLVIN MD July 24, 2016 14:32
--- NOTE | 2016-07-24 18:33 | PN ---
Date/Time of Note Date/Time of Note DATE: 07/24/16 TIME: 18:30 Assessment/Plan Lines/Catheters IV Catheter Type (from [facility]): Saline Lock Mott in Place (from [facility]): No Assessment/Plan Chief Complaint/Hosp Course -Bilateral lower extremity atherosclerosis with gangrene: It seems the patient' s new revascularization from the right axillary to femoral has perfused the right lower extremity. The patient has also undergone a new open transmetatarsal amputation with possible posterior flap that may be able to allow good granulation tissue develop with the wound VAC negative pressure system and allow for adequate wound healing. At the moment, the patient does have some drainage from the lateral aspect of the wound. From a vascular surgery standpoint, the patient has had his revascularization in terms of inflow and no further intervention will be needed from our standpoint for now. We will offer the patient to undergo debridement and possible revision of his transmetatarsal amputation stump and will plan to follow the wound's progress. Would recommend for secondary wound closure in order to allow for adequate granulation tissue development. Will need home health with wound vac -Optimize vascular status (BP meds, diet, nutrition, exercise, sugar control, antiplatelets, weight loss). -End-stage renal disease on hemodialysis Monday, Monday, Monday. Currently, the patient is tolerating his fistula via his left upper extremity for his dialysis sessions. We will plan to schedule the patient for eventual fistula ultrasound and to monitor its progress for now. -Discussed smoking cessation with the patient as he is an active smoker about 1/ 2 pack to 1 pack per day for 46 years. -Fall: Will obtain CT head and RLE Xrays -Discussed findings, plan and management with the patient and he understands. -No further vascular intervention at this time. We will plan to follow his debridement and eventual secondary closure of his wound and only intervene if needed. This will be a difficult task as the patient would likely require an antegrade access for any intervention. -Thank you for allowing us to partake in the care of your patient. Please call with any questions. Problems: Subjective 24 Hr Interval Summary no new vascular events overnight. pt went to bathroom unattended and fell Exam/Review of Systems Vital Signs Vitals Vital Signs Date Time Temp Pulse Resp B/P Pulse Ox O2 Delivery O2 Flow Rate FiO2 07/24/16 16:14 70 07/24/16 16:06 98.5 16 117/56 94 07/23/16 22:32 Nasal Cannula 2.0 Intake and Output 07/23/16 07/23/16 07/24/16 15:00 23:00 07:00 Intake Total 500 ml 970 ml Output Total 4500 ml Balance -4000 ml 970 ml Exam Free Text/Dictation GENERAL: Alert and oriented x3 PULMONARY: Coarse breath sounds bilaterally, some crackles at the bases. CARDIOVASCULAR: S1, S2 present. ABDOMEN: Soft, nontender, nondistended. Bowel sounds positive. Surgical midline incision is well healed with some areas of granulation tissue. Truncal obesity. EXTREMITIES: 1. Right upper extremity: Palpable brachial pulse. Motor, sensory intact. Cap refill 2 to 3 seconds. Axillofemoral bypass near collarbone palpable, abrasion on back of shoulder 2. Left upper extremity: Palpable brachial pulse. Motor, sensory intact. Cap refill 2 to 3 seconds. Axillary to femoral bypass palpable. 3. Right lower extremity: Palpable femoral pulse, nonpalpable pedal pulse. Motor, sensory intact. Capillary refill 3 to 4 seconds. Open TMA stump with wound VAC intact. 4. Left lower extremity: Palpable femoral pulse. Surgical scar is well healed. Nonpalpable pedal pulse. Motor and sensory intact. Capillary refill 3 to 4 seconds. Results Result Diagram: 07/24/16 1350 07/24/16 1350 LUZ MARIN MD July 24, 2016 18:33
--- NOTE | 2016-07-24 18:33 | RADRPT ---
PROCEDURE: XR Knee. CLINICAL INDICATION: Pain. TECHNIQUE: AP, lateral and oblique views of the right knee were obtained. The images reviewed on a PACS workstation. COMPARISON: Pain FINDINGS: The bones appear intact, with no evidence of fracture, erosion, demineralization, or dislocation. Th e alignment of the femorotibial and patellofemoral joints appears normal. No joint space narrowing i s seen. No evidence of effusion or soft tissue swelling is present. Vascular calcifications and post surgical changes from bypass graft are present. IMPRESSION: No acute bony abnormality RPTAT: QQ. .Mireya Weaver MD, Date Time Electronically viewed and signed by .Mireya Weaver MD, on 07/24/2016 18:33 .M/
[2016-07-24] MEDS: ATORVASTATIN 40 MG TAB PO SCH (20:11)
[2016-07-24] MEDS: DOXAZOSIN 4 MG TAB PO SCH (20:13)
[2016-07-24] MEDS: INSULIN GLARGINE [LANtus] 3 ML PEN SC SCH (20:18)
[2016-07-24] MEDS: HEPARIN 5,000 UNIT/0.5 ML VIAL SC SCH (20:24)
--- NOTE | 2016-07-24 23:38 | PN ---
Date/Time of Note Date/Time of Note DATE: 07/24/16 TIME: 23:38 Assessment/Plan Lines/Catheters IV Catheter Type (from Nrsg): Saline Lock Mott in Place (from Nrsg): No Assessment/Plan Problems: (1) Status post transmetatarsal amputation of right foot (2) Open wound of right foot (3) Diabetes, polyneuropathy (4) Peripheral vascular disease Assessment/Plan Patient will be scheduled for revision TMA right foot. Nonweightbearing right foot. Change dressings daily. Subjective 24 Hr Interval Summary Patient was seen at bedside. Patient is in no acute distress. Patient reports no new adverse events. Patient denies fever, chills, nausea or vomiting. Patient denies pain. Patient denies recent trauma. Patient reports bandages are being changed as directed. Patient does not report any new problems. Constitutional: no complaints Pain Control: well controlled Exam/Review of Systems Vital Signs Vitals Exam Free Text/Dictation GENERAL: Patient is in no acute distress laying supine in bed with dressing to the right foot VASCULAR: Pedal pulses are nonpalpable today bilateral lower extremity. There is moderate edema noted bilateral lower extremity. Increased temperature gradient noted bilaterally. Capillary filling time is delayed on toes on the left foot; status post TMA right foot. No varicose veins noted in the lower extremity NEUROLOGICAL: Protective sensation is diminished to sharp, dull, vibratory and temperature stimuli bilaterally. Deep tendon reflexes are normal bilateral SKIN: Status post right foot TMA with yellow fibrotic tissue and exposed tendon and bone. No pus and no bleeding noted. No erythema noted MUSCULOSKELETAL: Tender to examination of the right foot to palpation. Status post TMA right foot SANTOS ARENAS DPM July 24, 2016 23:38 NEUROLOGICAL: Protective sensation is diminished to sharp, dull, vibratory and temperature stimuli bilaterally. Deep tendon reflexes are normal bilateral SKIN: Status post right foot TMA with yellow fibrotic tissue and exposed tendon and bone. No pus and no bleeding noted. No erythema noted MUSCULOSKELETAL: Tender to examination of the right foot to palpation. Status post TMA right foot SANTOS ARENAS DPM July 24, 2016 23:38 SANTOS ARENAS DPM July 24, 2016 23:38
[2016-07-25] VITALS (18 sets, daily range): BP systolic 76–140; BP diastolic 36–59; PULSE 54–75; RESP 18–20
[2016-07-25] MEDS: ACCU-CHEK XX SCH (01:26)
[2016-07-25] MEDS: morphine 4 MG/ML VIAL IV PRN ×10 (01:56→23:50)
[2016-07-25] MEDS: LEVOTHYROXINE 75 MCG TAB PO SCH (05:45)
[2016-07-25] MEDS: PIPER-TAZO 2.25 GM (PMX) 50 ML IVPB SCH (05:45)
[2016-07-25] MEDS ORDERED: morphine 2 MG INJ IV PRN (06:00)
[2016-07-25] MEDS: ISOSORBIDE DINITRATE 10 MG TAB PO SCH ×3 (08:02→20:29)
[2016-07-25] MEDS: PAROXETINE 20 MG TAB PO SCH (08:02)
[2016-07-25] MEDS: BENAZEPRIL 10 MG TAB PO SCH (08:03)
[2016-07-25] MEDS: GABAPENTIN 300 MG CAP PO SCH ×2 (08:03→19:31)
[2016-07-25] MEDS: SEVELAMER 800 MG TAB PO SCH ×3 (08:03→18:30)
[2016-07-25] MEDS: FAMOTIDINE 20 MG INJ IV SCH (08:03)
[2016-07-25] MEDS: HEPARIN 5,000 UNIT/0.5 ML VIAL SC SCH ×2 (08:11→20:36)
[2016-07-25] MEDS: INSULIN ASPART [NOVOLOG] 3 ML PEN SC SCH ×7 (08:12→20:37)
--- NOTE | 2016-07-25 13:28 | PN ---
DATE: 07/25/2016 INFECTIOUS DISEASE PROGRESS NOTE SUBJECTIVE: No acute changes. The patient is awake, ambulating in the room. No fevers. LABORATORY DATA: No labs today. ANTIMICROBIALS: He is: 1. Vancomycin. 2. Zosyn. INDWELLINGS: Left upper extremity AV fistula. PHYSICAL EXAMINATION: GENERAL: Well-developed, elderly [place] man who is alert, in no distress. HEENT: Head atraumatic, normocephalic. Sclerae anicteric. Buccal mucosa dry. NECK: Supple. CHEST: Rise symmetrical. Breath sounds clear, diminished to bases. HEART: S1, S2. ABDOMEN: Soft, bowel sounds present. EXTREMITIES: Right foot dressing intact. Wound VAC present. ASSESSMENT: 1. Bilateral lower extremity atherosclerosis with gangrene, status post revascularization procedure , status post new open transmetatarsal amputation with wound VAC placement. 2. Diabetes. 3. End-stage renal disease, hemodialysis dependent. 4. Peripheral vascular disease. PLAN: The patient remains stable. We will change Zosyn to Levaquin. Continue IV vancomycin. Will discuss with podiatry and vascular team plan of care in regards to his antibiotics. Dictated By: MARYLOU SCHNEIDER BARROW WORKER for [employer]INA ZAVALA/ROD Conf#: [id number] DID#: [id number]
[2016-07-25] MEDS: LEVOFLOXACIN 250 MG TAB PO SCH (14:00)
--- NOTE | 2016-07-25 15:38 | PN ---
Date/Time of Note Date/Time of Note DATE: 07/25/16 TIME: 15:34 Assessment/Plan VTE Prophylaxis VTE Prophylaxis Intervention: heparin Lines/Catheters IV Catheter Type (from [facility]): Saline Lock Urinary Cath still in place: No Assessment/Plan Chief Complaint/Hosp Course Assessment and plan 1. Chest pain with positive stress test. Follow-up with cardiology recommendations should for the need for angiogram be necessary. Continue optimization with cardiovascular medications 2. End-stage renal disease on dialysis. Continue on dialysis. Monitor renal panel and for electrolyte disturbance. 3. Essential hypertension. Continue antihypertensives as needed 4. Dyslipidemia. Patient to be resumed on statin medication 5. PVD status post right great toe amputation and currently on wound VAC. Tentative plan for revision of transmetatarsal amputation. Follow-up with podiatry recommendations. Disposition and plan: Continue on antibiotics. Continue wound care. Tentative plan for transmetatarsal amputation of right lower extremity. Will follow up. Discussed plan of care with Dr. gamble Problems: Subjective 24 Hr Interval Summary Free Text/Dictation Denies any chest pain at this time. No specific complaints. Slightly anxious Exam/Review of Systems Vital Signs Vitals Vital Signs Date Time Temp Pulse Resp B/P Pulse Ox O2 Delivery O2 Flow Rate FiO2 07/25/16 12:18 62 07/25/16 11:39 98.2 18 93/53 95 07/25/16 08:00 Nasal Cannula 2.0 Intake and Output 07/24/16 07/24/16 07/25/16 15:00 23:00 07:00 Intake Total 50 ml 850 ml 50 ml Balance 50 ml 850 ml 50 ml Exam Constitutional: alert, oriented Psych: anxiety, nl mood/affect Head: normocephalic Neck: non-tender, supple Respiratory: clear to auscultation, normal air movement Cardiovascular: regular rate and rhythm Gastrointestinal: non-tender, soft Musculoskeletal: other (Right lower extremity with dressing in place and noted with bilateral lower extremity edema +3) 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, nl mental status Results Result Diagram: 07/24/16 1350 07/24/16 1350 Results 24 hrs Laboratory Tests Test 07/24/16 17:23 07/24/16 20:09 07/25/16 07:53 07/25/16 11:31 Bedside Glucose 207 121 146 79 Medications Medications Current Medications Ondansetron HCl (Zofran Inj) 4 mg Q6H PRN IV NAUSEA AND/OR VOMITING; Start at 05:00 Acetaminophen (Tylenol Tab) 650 mg Q6H PRN PO PAIN LEVEL 1-3 OR FEVER; Start at 05:00 Docusate Sodium (Colace) 100 mg Q12H PRN PO CONSTIPATION Last administered on 20:11; Admin Dose 100 MG; Start 07/21/16 at 05:00 Bisacodyl (Dulcolax) 5 mg DAILY PRN PO CONSTIPATION; Start 07/21/16 at 05:00 Famotidine (Pepcid Iv) 20 mg DAILY IV Last administered on 07/25/16 08:03; Admin Dose 20 MG; Start 07/21/16 at 09:00 Carvedilol (Coreg) 25 mg BID PO Last administered on 07/25/16 08:02; Admin Dose 25 MG; Start 07/21/16 at 09:00 Clonazepam (Klonopin) 1 mg QHS PRN PO ANXIETY Last administered on 07/22/16 22 :41; Admin Dose 1 MG; Start 07/21/16 at 06:00 Doxazosin Mesylate (Cardura) 4 mg DAILY@21 PO Last administered on 07/24/16 20 :13; Admin Dose 4 MG; Start 07/21/16 at 21:00 Gabapentin (Neurontin) 300 mg BID PO Last administered on 07/25/16 08:03; Admin Dose 300 MG; Start 07/21/16 at 09:00 Hydroxyzine HCl (Atarax) 50 mg Q6H PRN PO ITCHING; Start 07/21/16 at 06:00 Paroxetine HCl (Paxil) 20 mg DAILY PO Last administered on 07/25/16 08:02; Admin Dose 20 MG; Start 07/21/16 at 09:00 Miscellaneous Information 1 ea NOTE XX ; Start 07/21/16 at 06:00 Glucose (Glutose) 15 gm Q15M PRN PO DECREASED GLUCOSE; Start 07/21/16 at 06:00 Glucose (Glutose) 22.5 gm Q15M PRN PO DECREASED GLUCOSE; Start 07/21/16 at 06: 00 Dextrose (D50w Syringe) 25 ml Q15M PRN IV DECREASED GLUCOSE; Start 07/21/16 at 06:00 Dextrose (D50w Syringe) 50 ml Q15M PRN IV DECREASED GLUCOSE; Start 07/21/16 at 06:00 Glucagon (Glucagen) 1 mg Q15M PRN IM DECREASED GLUCOSE; Start 07/21/16 at 06:00 Glucose (Glutose) 15 gm Q15M PRN BUCCAL DECREASED GLUCOSE; Start 07/21/16 at 06 :00 Diagnostic Test (Pha) (Accu-Chek) 1 ea 02 XX Last administered on 07/24/16 02: 00; Admin Dose 1 EA; Start 07/22/16 at 02:00 Epoetin Pierce (Epogen (Esrd)) 8,000 units TuThSa@17 SC Last administered on 07/23 16:55; Admin Dose 8,000 UNITS; Start 07/21/16 at 17:00 Insulin Glargine (Lantus) 10 unit DAILY@20 SC Last administered on 07/24/16 20 :18; Admin Dose 10 UNIT; Start 07/21/16 at 20:00 Benazepril HCl (Lotensin) 10 mg DAILY PO Last administered on 07/25/16 08:03; Admin Dose 10 MG; Start 07/22/16 at 09:00 Isosorbide Dinitrate (Isordil) 10 mg TID PO Last administered on 07/25/16 08: 02; Admin Dose 10 MG; Start 07/21/16 at 21:00 Acetaminophen/ Hydrocodone Bitart ([place] (5/325)) 1 tab Q4H PRN PO pain Last administered on 07/22/16 22:41; Admin Dose 1 TAB; Start 07/22/16 at 15:30 Morphine Sulfate (morphine) 3 mg Q2H PRN IV PAIN Last administered on 14:01; Admin Dose 3 MG; Start 07/23/16 at 01:15 Atorvastatin Calcium (Lipitor) 40 mg HS PO Last administered on 07/24/16 20:11 ; Admin Dose 40 MG; Start 07/23/16 at 21:00 Heparin Sodium (Porcine) (Heparin (5000 Units/0.5 ml)) 5,000 unit BID SC Last administered on 07/25/16 08:11; Admin Dose 5,000 UNIT; Start 5/21/17 at 21:00 Levofloxacin (Levaquin) 250 mg Q48H PO Last administered on 07/25/16t 14:00; Admin Dose 250 MG; Start 07/25/16 at 13:00 Lactobacillus Acidophilus (Florajen3 Capsule) 1 each BID PO ; Start 07/25/16 at 21:00 MARYELLEN BARNETT July 25, 2016 15:38
[2016-07-25] MEDS ORDERED: ALBUMIN HUMAN 25% 100 ML IV ONE ×2 (16:00)
--- NOTE | 2016-07-25 18:50 | CONS ---
Date/Time of Note Date/Time of Note DATE: 07/25/16 TIME: 18:44 Assessment/Plan Assessment/Plan Chief Complaint/Hosp Course IMPRESSION: 1. Chest pain, assess for acute coronary syndrome.-negative troponin x 3. Lexiscan stress test with TID and larfge anterior and inferior wall reversible component 2. Abnormal electrocardiogram, assess for acute coronary syndrome. 3. History of coronary artery disease, status post coronary artery bypass graft surgery. 4. Cardiomyopathy, decreased left ventricular ejection fraction last time approximately 35% to 40% by echo 03/2016. 5. Hypertension. 6. Dyslipidemia. 7. Peripheral arterial disease, status post right transmetatarsal amputation. 8. Possible cellulitis of the left foot. 9. End-stage renal disease on hemodialysis. 10. Anemia, macrocytic. Recc: -Tele -serial ecg's -Continue benazepril/coreg/isordil -Continue statin -Ongoing vascular eval and treatment local wound care -Lexiscan stress with large area of ischemia anterior/ischemia and EF 31. Recc pre-op cardiac cath prior to general anesthesia as possible -start asa and follow for ant recurrent bleeding Problems: Consultation Date/Type/Reason Admit Date/Time July 21, 2016 at 02:28 Initial Consult Date 07/21/16 Type of Consultation: Cardiology Reason for Consultation Pre-op/cardiomyopathy Referring Provider: STACEY NEWTON Exam/Review of Systems Vital Signs Vitals Vital Signs Date Time Temp Pulse Resp B/P Pulse Ox O2 Delivery O2 Flow Rate FiO2 07/25/16 17:15 68 07/25/16 15:45 18 07/25/16 15:34 98.2 95/48 92 07/25/16 08:00 Nasal Cannula 2.0 Intake and Output 07/24/16 07/24/16 07/25/16 15:00 23:00 07:00 Intake Total 50 ml 850 ml 50 ml Balance 50 ml 850 ml 50 ml Exam Review of Systems: CONSTITUTIONAL: No fevers, chills. PULMONARY: No sob CARDIOVASCULAR: No chest pain/palpitations GASTROINTESTINAL: No nausea/vomiting. GENITOURINARY: No hematuria/dysuria. MUSCULOSKELETAL: Pain in foot PSYCHIATRIC: The patient denies depression. NEUROLOGIC: No weakness Constitutional: alert Psych: no complaints Head: normocephalic ENMT: mucosa pink and moist Neck: jvd (8-9 cm water), supple Respiratory: clear to auscultation Cardiovascular: regular rate and rhythm Gastrointestinal: non-tender, soft Musculoskeletal: muscle tone (normal) Extremities: other (s/p TMA covered by dressing and wound vac) Neurological: other (No focal deficits) Results Result Diagram: 07/24/16 1350 07/24/16 1350 Results 24 hrs Laboratory Tests Test 07/24/16 20:09 07/25/16 07:53 07/25/16 11:31 07/25/16 17:57 Bedside Glucose 121 146 79 199 Medications Medications Current Medications Ondansetron HCl (Zofran Inj) 4 mg Q6H PRN IV NAUSEA AND/OR VOMITING; Start at 05:00 Acetaminophen (Tylenol Tab) 650 mg Q6H PRN PO PAIN LEVEL 1-3 OR FEVER; Start at 05:00 Docusate Sodium (Colace) 100 mg Q12H PRN PO CONSTIPATION Last administered on 20:11; Admin Dose 100 MG; Start 07/21/16 at 05:00 Bisacodyl (Dulcolax) 5 mg DAILY PRN PO CONSTIPATION; Start 07/21/16 at 05:00 Famotidine (Pepcid Iv) 20 mg DAILY IV Last administered on 07/25/16 08:03; Admin Dose 20 MG; Start 07/21/16 at 09:00 Carvedilol (Coreg) 25 mg BID PO Last administered on 07/25/16 08:02; Admin Dose 25 MG; Start 07/21/16 at 09:00 Clonazepam (Klonopin) 1 mg QHS PRN PO ANXIETY Last administered on 07/22/16 22 :41; Admin Dose 1 MG; Start 07/21/16 at 06:00 Doxazosin Mesylate (Cardura) 4 mg DAILY@21 PO Last administered on 07/24/16 20 :13; Admin Dose 4 MG; Start 07/21/16 at 21:00 Gabapentin (Neurontin) 300 mg BID PO Last administered on 07/25/16 08:03; Admin Dose 300 MG; Start 07/21/16 at 09:00 Hydroxyzine HCl (Atarax) 50 mg Q6H PRN PO ITCHING; Start 07/21/16 at 06:00 Paroxetine HCl (Paxil) 20 mg DAILY PO Last administered on 07/25/16 08:02; Admin Dose 20 MG; Start 07/21/16 at 09:00 Miscellaneous Information 1 ea NOTE XX ; Start 07/21/16 at 06:00 Glucose (Glutose) 15 gm Q15M PRN PO DECREASED GLUCOSE; Start 07/21/16 at 06:00 Glucose (Glutose) 22.5 gm Q15M PRN PO DECREASED GLUCOSE; Start 07/21/16 at 06: 00 Dextrose (D50w Syringe) 25 ml Q15M PRN IV DECREASED GLUCOSE; Start 07/21/16 at 06:00 Dextrose (D50w Syringe) 50 ml Q15M PRN IV DECREASED GLUCOSE; Start 07/21/16 at 06:00 Glucagon (Glucagen) 1 mg Q15M PRN IM DECREASED GLUCOSE; Start 07/21/16 at 06:00 Glucose (Glutose) 15 gm Q15M PRN BUCCAL DECREASED GLUCOSE; Start 07/21/16 at 06 :00 Diagnostic Test (Pha) (Accu-Chek) 1 ea 02 XX Last administered on 07/24/16 02: 00; Admin Dose 1 EA; Start 07/22/16 at 02:00 Epoetin Pierce (Epogen (Esrd)) 8,000 units TuThSa@17 SC Last administered on 07/23 16:55; Admin Dose 8,000 UNITS; Start 07/21/16 at 17:00 Insulin Glargine (Lantus) 10 unit DAILY@20 SC Last administered on 07/24/16 20 :18; Admin Dose 10 UNIT; Start 07/21/16 at 20:00 Benazepril HCl (Lotensin) 10 mg DAILY PO Last administered on 07/25/16 08:03; Admin Dose 10 MG; Start 07/22/16 at 09:00 Isosorbide Dinitrate (Isordil) 10 mg TID PO Last administered on 07/25/16 08: 02; Admin Dose 10 MG; Start 07/21/16 at 21:00 Acetaminophen/ Hydrocodone Bitart ([place] (5/325)) 1 tab Q4H PRN PO pain Last administered on 07/22/16 22:41; Admin Dose 1 TAB; Start 07/22/16 at 15:30 Morphine Sulfate (morphine) 3 mg Q2H PRN IV PAIN Last administered on 18:32; Admin Dose 3 MG; Start 07/23/16 at 01:15 Atorvastatin Calcium (Lipitor) 40 mg HS PO Last administered on 07/24/16 20:11 ; Admin Dose 40 MG; Start 07/23/16 at 21:00 Heparin Sodium (Porcine) (Heparin (5000 Units/0.5 ml)) 5,000 unit BID SC Last administered on 07/25/16 08:11; Admin Dose 5,000 UNIT; Start 07/24/16 at 21:00 Levofloxacin (Levaquin) 250 mg Q48H PO Last administered on 07/25/16 14:00; Admin Dose 250 MG; Start 07/25/16 at 13:00 Lactobacillus Acidophilus (Florajen3 Capsule) 1 each BID PO ; Start 07/25/16 at 21:00 TOMAS WELCH July 25, 2016 18:50
--- NOTE | 2016-07-25 19:36 | PN ---
Date/Time of Note Date/Time of Note DATE: 07/25/16 TIME: 19:26 Assessment/Plan Lines/Catheters IV Catheter Type (from Nrs): Saline Lock Mott in Place (from Nrs): No Assessment/Plan Problems: (1) Open wound of right foot (2) Status post transmetatarsal amputation of right foot (3) Acquired absence of right foot (4) Peripheral vascular disease (5) Diabetes, polyneuropathy (6) CHF (congestive heart failure) Status: Acute (7) Family history of cardiac disorder (8) Family history of hypertension (9) Family history of endocrine and metabolic disease Assessment/Plan Patient is scheduled for revision TMA of the right foot tomorrow at 3:30 pm. I have discussed the plan with the patient in great detail. Orders are in the chart. Patient will require his wound VAC to continue most likely for at least three months. Plan is for increase in red granulation tissue and wound prep for skin grafting pending absence of infection. Prognosis is guarded. Patient will be followed in house. Subjective 24 Hr Interval Summary Patient was seen and examined at bedside. He was receiving dialysis. Patient reports no pain in his right foot. Patient denies fever, chills, nausea or vomiting. Patient reports that he wants to go home as soon as possible. Constitutional: no complaints Pain Control: well controlled Exam/Review of Systems Vital Signs Vitals Vital Signs Date Time Temp Pulse Resp B/P Pulse Ox O2 Delivery O2 Flow Rate FiO2 07/25/16 19:16 98.6 77 20 140/50 93 07/25/16 08:00 Nasal Cannula 2.0 Intake and Output 07/24/16 07/24/16 07/25/16 15:00 23:00 07:00 Intake Total 50 ml 850 ml 50 ml Balance 50 ml 850 ml 50 ml Exam Free Text/Dictation Patient is in no acute distress laying supine in bed. He has a wound VAC to the right foot and is s/p TMA of the right foot. Right lower leg edema present with no erythema and no ecchymosis. No blisters present on the lower leg. There is 40:60 fibrous:red granulation tissue on the TMA site with exposed tendon, bone, muscle, and ligaments. There is no malodor present and no pus noted. There is no active bleeding noted on exam. DP is not palpable and PT is not palpable secondary to the edema present. Left foot and ankle has no open wounds and no sign of infection. NO other changes noted on exam. Results Result Diagram: 07/24/16 1350 07/24/16 1350 SANTOS ARENAS DPM July 25, 2016 19:36
[2016-07-25] MEDS: L ACIDOPHIL/B LACTIS/B LONGUM CAPSULE PO SCH (20:28)
[2016-07-25] MEDS: ATORVASTATIN 40 MG TAB PO SCH (20:28)
[2016-07-25] MEDS: DOXAZOSIN 4 MG TAB PO SCH (20:28)
[2016-07-25] MEDS: INSULIN GLARGINE [LANtus] 3 ML PEN SC SCH (20:36)
[2016-07-25] MEDS: clonAZEPAM 0.5 MG TAB PO PRN (21:51)
--- NOTE | 2016-07-25 23:27 | PN ---
Date/Time of Note Date/Time of Note DATE: 07/25/16 TIME: 23:25 Assessment/Plan Lines/Catheters IV C[facility]ter Type (from [facility]): Saline Lock Mott in Place (from [facility]): No Assessment/Plan Chief Complaint/Hosp Course -Bilateral lower extremity atherosclerosis with gangrene: It seems the patient' s new revascularization from the right axillary to femoral has perfused the right lower extremity. The patient has also undergone a new open transmetatarsal amputation with possible posterior flap that may be able to allow good granulation tissue develop with the wound VAC negative pressure system and allow for adequate wound healing. At the moment, the patient does have some drainage from the lateral aspect of the wound. From a vascular surgery standpoint, the patient has had his revascularization in terms of inflow and no further intervention will be needed from our standpoint for now. We will offer the patient to undergo debridement and possible revision of his transmetatarsal amputation stump and will plan to follow the wound's progress. Would recommend for secondary wound closure in order to allow for adequate granulation tissue development. Will need home health with wound vac -Optimize vascular status (BP meds, diet, nutrition, exercise, sugar control, antiplatelets, weight loss). -End-stage renal disease on hemodialysis Monday, Monday, Monday. Currently, the patient is tolerating his fistula via his left upper extremity for his dialysis sessions. We will plan to schedule the patient for eventual fistula ultrasound and to monitor its progress for now. -Discussed smoking cessation with the patient as he is an active smoker about 1/ 2 pack to 1 pack per day for 46 years. -Discussed findings, plan and management with the patient and he understands. -No further vascular intervention at this time. We will plan to follow his debridement and eventual secondary closure of his wound and only intervene if needed. This will be a difficult task as the patient would likely require an antegrade access for any intervention. -Thank you for allowing us to partake in the care of your patient. Please call with any questions. Problems: Subjective 24 Hr Interval Summary no new vascular events overnight Exam/Review of Systems Vital Signs Vitals Vital Signs Date Time Temp Pulse Resp B/P Pulse Ox O2 Delivery O2 Flow Rate FiO2 07/25/16 20:37 75 07/25/16 19:16 98.6 20 140/50 93 07/25/16 08:00 Nasal Cannula 2.0 Intake and Output 07/24/16 07/24/16 07/25/16 15:00 23:00 07:00 Intake Total 50 ml 850 ml 50 ml Balance 50 ml 850 ml 50 ml Exam Free Text/Dictation GENERAL: Alert and oriented x3 PULMONARY: Coarse breath sounds bilaterally, some crackles at the bases. CARDIOVASCULAR: S1, S2 present. ABDOMEN: Soft, nontender, nondistended. Bowel sounds positive. Surgical midline incision is well healed with some areas of granulation tissue. Truncal obesity. EXTREMITIES: 1. Right upper extremity: Palpable brachial pulse. Motor, sensory intact. Cap refill 2 to 3 seconds. Axillofemoral bypass near collarbone palpable, 2. Left upper extremity: Palpable brachial pulse. Motor, sensory intact. Cap refill 2 to 3 seconds. Axillary to femoral bypass palpable. fistula with bruit and thrill present 3. Right lower extremity: Palpable femoral pulse, nonpalpable pedal pulse. Motor, sensory intact. Capillary refill 3 to 4 seconds. Open TMA stump with wound VAC intact. 4. Left lower extremity: Palpable femoral pulse. Surgical scar is well healed. Nonpalpable pedal pulse. Motor and sensory intact. Capillary refill 3 to 4 seconds. Results Result Diagram: 07/24/16 1350 07/24/16 1350 LUZ MARIN MD July 25, 2016 23:27
[2016-07-26] VITALS (14 sets, daily range): BP systolic 86–110; BP diastolic 39–58; PULSE 56–80; RESP 15–19
[2016-07-26] MEDS: morphine 4 MG/ML VIAL IV PRN ×8 (01:47→22:31)
[2016-07-26] MEDS: ACCU-CHEK XX SCH (02:00)
[2016-07-26] MEDS: INSULIN ASPART [NOVOLOG] 3 ML PEN SC SCH ×10 (06:00→21:04)
[2016-07-26] MEDS: LEVOTHYROXINE 75 MCG TAB PO SCH (06:07)
[2016-07-26] MEDS: SEVELAMER 800 MG TAB PO SCH ×3 (07:49→18:26)
[2016-07-26] MEDS: FAMOTIDINE 20 MG INJ IV SCH (08:42)
[2016-07-26] MEDS: L ACIDOPHIL/B LACTIS/B LONGUM CAPSULE PO SCH ×2 (08:42→20:40)
[2016-07-26] MEDS: GABAPENTIN 300 MG CAP PO SCH ×2 (08:42→20:39)
[2016-07-26] MEDS: ISOSORBIDE DINITRATE 10 MG TAB PO SCH ×3 (08:42→21:00)
[2016-07-26] MEDS: ASPIRIN 81 MG TAB PO SCH (08:42)
[2016-07-26] MEDS: BENAZEPRIL 10 MG TAB PO SCH (08:43)
[2016-07-26] MEDS: HEPARIN 5,000 UNIT/0.5 ML VIAL SC SCH ×2 (08:56→21:00)
[2016-07-26] MEDS: PAROXETINE 20 MG TAB PO SCH (09:09)
--- NOTE | 2016-07-26 12:07 | CONS ---
Date/Time of Note Date/Time of Note DATE: 07/26/16 TIME: 11:58 Assessment/Plan Assessment/Plan Additional Assessment/Plan 1. Chest pain, assess for acute coronary syndrome.-negative troponin x 3. Lexiscan stress test with TID and larfge anterior and inferior wall reversible component - pt with high risk features on stress test - PRE-OP cath advised - Dr. Joe to follow. 2. Abnormal electrocardiogram, assess for acute coronary syndrome.- no CP now - [facility] planned. 3. History of coronary artery disease, status post coronary artery bypass graft surgery. 4. Cardiomyopathy, decreased left ventricular ejection fraction last time approximately 35% to 40% by echo 03/2016. 5. Hypertension. 6. Dyslipidemia. 7. Peripheral arterial disease, status post right transmetatarsal amputation. 8. Possible cellulitis of the left foot. 9. End-stage renal disease on hemodialysis- HD as needed. 10. Anemia, macrocytic. Consultation Date/Type/Reason Admit Date/Time July 21, 2016 at 02:28 Initial Consult Date 07/21/16 Type of Consultation: Cardiology Referring Provider: STACEY NEWTON 24 HR Interval Summary Free Text/Dictation NO CP now - con't pre-op evaluation. ROS: No fever, no chills, no nausea, no vomiting, no diarrhea/constipation No recent weight changes No chest pain, no PND, no orthopnea No dizziness, blurred vision No thirst, no heat or cold intolerance Exam/Review of Systems Vital Signs Vitals Vital Signs Date Time Temp Pulse Resp B/P Pulse Ox O2 Delivery O2 Flow Rate FiO2 07/26/16 11:14 98.2 66 18 91/44 92 07/25/16 22:00 Nasal Cannula 2.0 Intake and Output 07/25/16 07/25/16 07/26/16 15:00 23:00 07:00 Intake Total 300 ml 300 ml Balance 300 ml 300 ml Exam General: WN/WD/NAD, AOx 2-3 HEENT: Unicetric/atraumatic/EOMI (follows commands) NECK: JVD elevated, no thyromegaly Lymph: no lymphadenopathy HEART: regular with no S3, II/ systolic murmur at apex LUNGS: Coarse sounds ABD: soft, NT, ND, +BS : Intact Neuro: non focal SKIN: chronic changes EXT: trace edema, pordistal pulses Results Result Diagram: 07/24/16 1350 07/24/16 1350 Results 24 hrs Laboratory Tests Test 07/25/16 17:57 07/25/16 20:27 07/26/16 05:06 07/26/16 11:42 Bedside Glucose 199 124 124 76 Medications Medications Current Medications Ondansetron HCl (Zofran Inj) 4 mg Q6H PRN IV NAUSEA AND/OR VOMITING; Start at 05:00 Acetaminophen (Tylenol Tab) 650 mg Q6H PRN PO PAIN LEVEL 1-3 OR FEVER; Start at 05:00 Docusate Sodium (Colace) 100 mg Q12H PRN PO CONSTIPATION Last administered on 20:11; Admin Dose 100 MG; Start 07/21/16 at 05:00 Bisacodyl (Dulcolax) 5 mg DAILY PRN PO CONSTIPATION; Start 07/21/16 at 05:00 Famotidine (Pepcid Iv) 20 mg DAILY IV Last administered on 07/26/16 08:42; Admin Dose 20 MG; Start 07/21/16 at 09:00 Carvedilol (Coreg) 25 mg BID PO Last administered on 07/26/16 08:43; Admin Dose 25 MG; Start 07/21/16 at 09:00 Clonazepam (Klonopin) 1 mg QHS PRN PO ANXIETY Last administered on 07/25/16 21 :51; Admin Dose 1 MG; Start 07/21/16 at 06:00 Doxazosin Mesylate (Cardura) 4 mg DAILY@21 PO Last administered on 07/25/16 20 :28; Admin Dose 4 MG; Start 07/21/16 at 21:00 Gabapentin (Neurontin) 300 mg BID PO Last administered on 07/26/16 08:42; Admin Dose 300 MG; Start 07/21/16 at 09:00 Hydroxyzine HCl (Atarax) 50 mg Q6H PRN PO ITCHING; Start 07/21/16 at 06:00 Paroxetine HCl (Paxil) 20 mg DAILY PO Last administered on 07/26/16 09:09; Admin Dose 20 MG; Start 07/21/16 at 09:00 Miscellaneous Information 1 ea NOTE XX ; Start 07/21/16 at 06:00 Glucose (Glutose) 15 gm Q15M PRN PO DECREASED GLUCOSE; Start 07/21/16 at 06:00 Glucose (Glutose) 22.5 gm Q15M PRN PO DECREASED GLUCOSE; Start 07/21/16 at 06: 00 Dextrose (D50w Syringe) 25 ml Q15M PRN IV DECREASED GLUCOSE; Start 07/21/16 at 06:00 Dextrose (D50w Syringe) 50 ml Q15M PRN IV DECREASED GLUCOSE; Start 07/21/16 at 06:00 Glucagon (Glucagen) 1 mg Q15M PRN IM DECREASED GLUCOSE; Start 07/21/16 at 06:00 Glucose (Glutose) 15 gm Q15M PRN BUCCAL DECREASED GLUCOSE; Start 07/21/16 at 06 :00 Epoetin Pierce (Epogen (Esrd)) 8,000 units TuThSa@17 SC Last administered on 07/23 16:55; Admin Dose 8,000 UNITS; Start 07/21/16 at 17:00 Insulin Glargine (Lantus) 10 unit DAILY@20 SC Last administered on 07/25/16 20 :36; Admin Dose 10 UNIT; Start 07/21/16 at 20:00 Benazepril HCl (Lotensin) 10 mg DAILY PO Last administered on 07/26/16 08:43; Admin Dose 10 MG; Start 07/22/16 at 09:00 Isosorbide Dinitrate (Isordil) 10 mg TID PO Last administered on 07/26/16 08: 42; Admin Dose 10 MG; Start 07/21/16 at 21:00 Acetaminophen/ Hydrocodone Bitart ([place] (5/325)) 1 tab Q4H PRN PO pain Last administered on 07/22/16 22:41; Admin Dose 1 TAB; Start 07/22/16 at 15:30 Morphine Sulfate (morphine) 3 mg Q2H PRN IV PAIN Last administered on 08:42; Admin Dose 3 MG; Start 07/23/16 at 01:15 Atorvastatin Calcium (Lipitor) 40 mg HS PO Last administered on 07/25/16 20:28 ; Admin Dose 40 MG; Start 07/23/16 at 21:00 Heparin Sodium (Porcine) (Heparin (5000 Units/0.5 ml)) 5,000 unit BID SC Last administered on 07/26/16 08:56; Admin Dose 5,000 UNIT; Start 07/24/16 at 21:00 Levofloxacin (Levaquin) 250 mg Q48H PO Last administered on 07/25/16 14:00; Admin Dose 250 MG; Start 07/25/16 at 13:00 Lactobacillus Acidophilus (Florajen3 Capsule) 1 each BID PO Last administered on 07/26/16 08:42; Admin Dose 1 EACH; Start 07/25/16 at 21:00 Aspirin (Aspirin) 81 mg DAILY PO Last administered on 07/26/16 08:42; Admin Dose 81 MG; Start 07/26/16 at 09:00 Insulin Aspart (Novolog Insulin Pen) NOVOLOG *MILD* ALGORI... Q6H SC ; Start at 06:00 SOCRATES GIPSON MD July 26, 2016 12:07
--- NOTE | 2016-07-26 14:57 | PN ---
Date/Time of Note Date/Time of Note DATE: 07/26/16 TIME: 14:55 Assessment/Plan VTE Prophylaxis VTE Prophylaxis Intervention: heparin Lines/Catheters IV [facility]ter Type (from [facility]): Saline Lock Urinary Cath still in place: No Assessment/Plan Chief Complaint/Hosp Course Assessment and plan 1. Chest pain with positive stress test. Follow-up with cardiology recommendations should for the need for angiogram be necessary. Continue optimization with cardiovascular medications. no reported chest pain at this time 2. End-stage renal disease on dialysis. Continue on dialysis. Monitor renal panel and for electrolyte disturbance. stable 3. Essential hypertension. Continue antihypertensives as needed 4. Dyslipidemia. Patient to be resumed on statin medication 5. PVD status post right great toe amputation and currently on wound VAC. Tentative plan for revision of transmetatarsal amputation 07/26/16. Follow-up with podiatry recommendations. Disposition and plan: Tentative plan for transmetatarsal amputation of right lower extremity. cont with wound care Discussed plan of care with Dr. Cervantes Problems: Subjective 24 Hr Interval Summary Free Text/Dictation resting at this time. no s/s of distress Exam/Review of Systems Vital Signs Vitals Vital Signs Date Time Temp Pulse Resp B/P Pulse Ox O2 Delivery O2 Flow Rate FiO2 07/26/16 12:40 56 07/26/16 11:14 98.2 18 91/44 92 07/25/16 22:00 Nasal Cannula 2.0 Intake and Output 07/25/16 07/25/16 07/26/16 15:00 23:00 07:00 Intake Total 300 ml 300 ml Balance 300 ml 300 ml Exam Constitutional: alert, oriented Psych: nl mood/affect Head: normocephalic Eyes: nl conjunctiva Neck: supple, No jvd Respiratory: clear to auscultation Cardiovascular: other (regular rate) Gastrointestinal: non-tender, soft Musculoskeletal: other (Right lower extremity with dressing in place and noted with bilateral lower extremity edema +3) Neurological: P[employer] II-XII intact, nl mental status, nl speech Results Result Diagram: 07/24/16 1350 07/24/16 1350 Results 24 hrs Laboratory Tests Test 07/25/16 17:57 07/25/16 20:27 07/26/16 05:06 07/26/16 11:42 Bedside Glucose 199 124 124 76 Medications Medications Current Medications Ondansetron HCl (Zofran Inj) 4 mg Q6H PRN IV NAUSEA AND/OR VOMITING; Start at 05:00 Acetaminophen (Tylenol Tab) 650 mg Q6H PRN PO PAIN LEVEL 1-3 OR FEVER; Start at 05:00 Docusate Sodium (Colace) 100 mg Q12H PRN PO CONSTIPATION Last administered on 20:11; Admin Dose 100 MG; Start 07/21/16 at 05:00 Bisacodyl (Dulcolax) 5 mg DAILY PRN PO CONSTIPATION; Start 07/21/16 at 05:00 Famotidine (Pepcid Iv) 20 mg DAILY IV Last administered on 07/26/16 08:42; Admin Dose 20 MG; Start 07/21/16 at 09:00 Carvedilol (Coreg) 25 mg BID PO Last administered on 07/26/16 08:43; Admin Dose 25 MG; Start 07/21/16 at 09:00 Clonazepam (Klonopin) 1 mg QHS PRN PO ANXIETY Last administered on 07/25/16 21 :51; Admin Dose 1 MG; Start 07/21/16 at 06:00 Doxazosin Mesylate (Cardura) 4 mg DAILY@21 PO Last administered on 07/25/16 20 :28; Admin Dose 4 MG; Start 07/21/16 at 21:00 Gabapentin (Neurontin) 300 mg BID PO Last administered on 07/26/16 08:42; Admin Dose 300 MG; Start 07/21/16 at 09:00 Hydroxyzine HCl (Atarax) 50 mg Q6H PRN PO ITCHING; Start 07/21/16 at 06:00 Paroxetine HCl (Paxil) 20 mg DAILY PO Last administered on 07/26/16 09:09; Admin Dose 20 MG; Start 07/21/16 at 09:00 Miscellaneous Information 1 ea NOTE XX ; Start 07/21/16 at 06:00 Glucose (Glutose) 15 gm Q15M PRN PO DECREASED GLUCOSE; Start 07/21/16 at 06:00 Glucose (Glutose) 22.5 gm Q15M PRN PO DECREASED GLUCOSE; Start 07/21/16 at 06: 00 Dextrose (D50w Syringe) 25 ml Q15M PRN IV DECREASED GLUCOSE; Start 07/21/16 at 06:00 Dextrose (D50w Syringe) 50 ml Q15M PRN IV DECREASED GLUCOSE; Start 07/21/16 at 06:00 Glucagon (Glucagen) 1 mg Q15M PRN IM DECREASED GLUCOSE; Start 07/21/16 at 06:00 Glucose (Glutose) 15 gm Q15M PRN BUCCAL DECREASED GLUCOSE; Start 07/21/16 at 06 :00 Epoetin Pierce (Epogen (Esrd)) 8,000 units TuThSa@17 SC Last administered on 07/23 16:55; Admin Dose 8,000 UNITS; Start 07/21/16 at 17:00 Insulin Glargine (Lantus) 10 unit DAILY@20 SC Last administered on 07/25/16 20 :36; Admin Dose 10 UNIT; Start 07/21/16 at 20:00 Benazepril HCl (Lotensin) 10 mg DAILY PO Last administered on 07/26/16 08:43; Admin Dose 10 MG; Start 07/22/16 at 09:00 Isosorbide Dinitrate (Isordil) 10 mg TID PO Last administered on 07/26/16 08: 42; Admin Dose 10 MG; Start 07/21/16 at 21:00 Acetaminophen/ Hydrocodone Bitart ([place] (5/325)) 1 tab Q4H PRN PO pain Last administered on 07/22/16 22:41; Admin Dose 1 TAB; Start 07/22/16 at 15:30 Morphine Sulfate (morphine) 3 mg Q2H PRN IV PAIN Last administered on 14:06; Admin Dose 3 MG; Start 07/23/16 at 01:15 Atorvastatin Calcium (Lipitor) 40 mg HS PO Last administered on 07/25/16 20:28 ; Admin Dose 40 MG; Start 07/23/16 at 21:00 Heparin Sodium (Porcine) (Heparin (5000 Units/0.5 ml)) 5,000 unit BID SC Last administered on 07/26/16 08:56; Admin Dose 5,000 UNIT; Start 07/24/16 at 21:00 Levofloxacin (Levaquin) 250 mg Q48H PO Last administered on 07/25/16 14:00; Admin Dose 250 MG; Start 07/25/16 at 13:00 Lactobacillus Acidophilus (Florajen3 Capsule) 1 each BID PO Last administered on 07/26/16 08:42; Admin Dose 1 EACH; Start 07/25/16 at 21:00 Aspirin (Aspirin) 81 mg DAILY PO Last administered on 07/26/16 08:42; Admin Dose 81 MG; Start 07/26/16 at 09:00 Insulin Aspart (Novolog Insulin Pen) NOVOLOG *MILD* ALGORI... Q6H SC ; Start at 06:00 MARYELLEN BARNETT July 26, 2016 14:57
[2016-07-26] MEDS ORDERED: POLYMYXIN/BACITRACIN 1L IRRIG ONE (15:56)
[2016-07-26] MEDS ORDERED: BUPIVACAINE 0.5% (SDV) 30 ML INJ ONE (15:56)
[2016-07-26] MEDS ORDERED: LIDOCAINE 2% (MDV) 20 ML INJ ONE (15:57)
[2016-07-26] MEDS ORDERED: MIDAZOLAM 1 MG/ML 2 ML INJ ONE (16:19)
[2016-07-26] MEDS ORDERED: FENTAnyl 50 MCG/ML VIAL ONE (16:19)
--- NOTE | 2016-07-26 16:22 | HPN ---
Date/Time of Note Date/Time of Note DATE: 07/26/16 TIME: 16:19 Interval H&P Admission Note Pt. seen H&P reviewed: No system changes SANTOS ARENAS DPM July 26, 2016 16:22
[2016-07-26] MEDS ORDERED: ETOMIDATE 20 MG INJ ONE (16:38)
[2016-07-26] MEDS ORDERED: EPHEDrine SULFATE 50 MG/5 ML SYG IV PRN (17:00)
[2016-07-26] MEDS ORDERED: ONDANSETRON 4 MG INJ IV PRN (17:00)
[2016-07-26] MEDS ORDERED: DIPHENHYDRAMINE 50 MG INJ IV PRN (17:00)
[2016-07-26] MEDS ORDERED: EPHEDrine SULFATE 50 MG/5 ML SYG ONE (17:38)
[2016-07-26] MEDS: EPOETIN 4000 UNITS/1 ML INJ (ESRD) SC SCH (18:29)
[2016-07-26] MEDS: INSULIN GLARGINE [LANtus] 3 ML PEN SC SCH (20:47)
[2016-07-26] MEDS: ATORVASTATIN 40 MG TAB PO SCH (20:48)
[2016-07-26] MEDS: DOXAZOSIN 4 MG TAB PO SCH (21:00)
[2016-07-27] VITALS (21 sets, daily range): BP systolic 90–133; BP diastolic 41–57; PULSE 62–78; RESP 20
[2016-07-27] MEDS: morphine 4 MG/ML VIAL IV PRN ×6 (00:34→16:28)
[2016-07-27] MEDS: morphine (ER) 30 MG TAB PO SCH ×3 (01:30→09:00)
[2016-07-27] MEDS ORDERED: HYDROmorphONE 2 MG/ML SYG IV ONE (01:37)
[2016-07-27] MEDS: KETOROLAC 15 MG INJ IV PRN ×2 (02:08→09:34)
[2016-07-27] MEDS ORDERED: HYDROmorphONE 1 MG/ML SYG IV PRN ×2 (04:00→13:00)
[2016-07-27] MEDS: LEVOTHYROXINE 75 MCG TAB PO SCH (05:36)
[2016-07-27] MEDS: INSULIN ASPART [NOVOLOG] 3 ML PEN SC SCH ×6 (07:25→17:08)
[2016-07-27] MEDS: SEVELAMER 800 MG TAB PO SCH ×3 (08:00→17:55)
[2016-07-27] MEDS: ASPIRIN 81 MG TAB PO SCH (08:00)
[2016-07-27] MEDS: GABAPENTIN 300 MG CAP PO SCH (08:00)
[2016-07-27] MEDS: ISOSORBIDE DINITRATE 10 MG TAB PO SCH ×2 (08:01→11:51)
[2016-07-27] MEDS: FAMOTIDINE 20 MG INJ IV SCH (08:01)
[2016-07-27] MEDS: PAROXETINE 20 MG TAB PO SCH (08:01)
[2016-07-27] MEDS: BENAZEPRIL 10 MG TAB PO SCH (08:02)
[2016-07-27] MEDS: HEPARIN 5,000 UNIT/0.5 ML VIAL SC SCH (08:18)
[2016-07-27] MEDS: L ACIDOPHIL/B LACTIS/B LONGUM CAPSULE PO SCH (08:18)
[2016-07-27] MEDS ORDERED: ALBUMIN HUMAN 25% 100 ML IV PRN (09:30)
--- NOTE | 2016-07-27 10:12 | RADRPT ---
PROCEDURE: XR Right Foot CLINICAL INDICATION: Postop x-rays TECHNIQUE: AP, oblique, and lateral radiographs were submitted. COMPARISON: 04/02/2015 FINDINGS: Osseous structures: There is been interval amputation at the mid first through fifth metatarsals. T here is minimal fragmentation at the residual distal fifth metatarsal. The osseous elements are calvin ewhat rarefied but otherwise intact. There is mild calcaneal spurring at the insertion of the Achil les tendon. Joint spaces: They are residual joint spaces appear unremarkable. Soft tissues: Vascular calcification is evident. IMPRESSION: 1. Interval amputation at the mid first through fifth metatarsals. There is minimal fragmentation of the residual distal fifth metatarsal. 2. Mild calcaneal spurring. 3. Vascular calcification. Physician Racheal Date Time Electronically viewed and signed by Physician Racheal on 07/27/2016 10:11 /
--- NOTE | 2016-07-27 10:45 | CONS ---
Date/Time of Note Date/Time of Note DATE: 07/27/16 TIME: 10:44 Assessment/Plan Assessment/Plan Chief Complaint/Hosp Course - ESRD on Hemodialysis MWF - Recent Hx of toe Amputation @ [facility] - CAD / Post CABG - DM / DM Nephropathy - Severe PVD - Anemia PLAN: - Bedside HD today - Monitor H/H - EPOGEN to keep Hgb ~ 10 - IV IRON - PAIN CONTROL - Continue his Vancomycin as was scheduled post surgery from [facility] Problems: Consultation Date/Type/Reason Admit Date/Time July 21, 2016 at 02:28 Initial Consult Date 07/21/16 Type of Consultation: NEPHROLOGY Reason for Consultation ESRD on dialysis Referring Provider: STACEY NEWTON 24 HR Interval Summary Constitutional: improved Exam/Review of Systems Vital Signs Vitals Vital Signs Date Time Temp Pulse Resp B/P Pulse Ox O2 Delivery O2 Flow Rate FiO2 07/27/16 10:28 77 07/27/16 08:45 16 07/27/16 07:43 98.4 94/43 94 07/26/16 17:59 Nasal Cannula 2.0 Intake and Output 07/26/16 07/26/16 07/27/16 15:00 23:00 07:00 Intake Total 200 ml 250 ml Output Total 76 ml Balance 124 ml 250 ml Exam Constitutional: alert Psych: no complaints Head: normocephalic Respiratory: crackles/rales Cardiovascular: regular rate and rhythm, systolic murmur Gastrointestinal: soft Results Result Diagram: 07/24/16 1350 07/24/16 1350 Results 24 hrs Laboratory Tests Test 07/26/16 11:42 07/26/16 14:55 07/26/16 18:24 07/26/16 20:09 Bedside Glucose 76 82 74 195 Test 07/27/16 02:09 07/27/16 07:53 Bedside Glucose 168 115 Medications Medications Current Medications Ondansetron HCl (Zofran Inj) 4 mg Q6H PRN IV NAUSEA AND/OR VOMITING; Start at 05:00 Acetaminophen (Tylenol Tab) 650 mg Q6H PRN PO PAIN LEVEL 1-3 OR FEVER; Start at 05:00 Docusate Sodium (Colace) 100 mg Q12H PRN PO CONSTIPATION Last administered on t 20:11; Admin Dose 100 MG; Start 07/21/16 at 05:00 Bisacodyl (Dulcolax) 5 mg DAILY PRN PO CONSTIPATION; Start 07/21/16 at 05:00 Famotidine (Pepcid Iv) 20 mg DAILY IV Last administered on 07/27/16 08:01; Admin Dose 20 MG; Start 07/21/16 at 09:00 Carvedilol (Coreg) 25 mg BID PO Last administered on 07/26/16 08:43; Admin Dose 25 MG; Start 07/21/16 at 09:00 Clonazepam (Klonopin) 1 mg QHS PRN PO ANXIETY Last administered on 07/25/16 21 :51; Admin Dose 1 MG; Start 07/21/16 at 06:00 Doxazosin Mesylate (Cardura) 4 mg DAILY@21 PO Last administered on 07/25/16 20 :28; Admin Dose 4 MG; Start 07/21/16 at 21:00 Gabapentin (Neurontin) 300 mg BID PO Last administered on 07/27/16 08:00; Admin Dose 300 MG; Start 07/21/16 at 09:00 Hydroxyzine HCl (Atarax) 50 mg Q6H PRN PO ITCHING; Start 07/21/16 at 06:00 Paroxetine HCl (Paxil) 20 mg DAILY PO Last administered on 07/27/16 08:01; Admin Dose 20 MG; Start 07/21/16 at 09:00 Miscellaneous Information 1 ea NOTE XX ; Start 07/21/16 at 06:00 Glucose (Glutose) 15 gm Q15M PRN PO DECREASED GLUCOSE; Start 07/21/16 at 06:00 Glucose (Glutose) 22.5 gm Q15M PRN PO DECREASED GLUCOSE; Start 07/21/16 at 06: 00 Dextrose (D50w Syringe) 25 ml Q15M PRN IV DECREASED GLUCOSE; Start 07/21/16 at 06:00 Dextrose (D50w Syringe) 50 ml Q15M PRN IV DECREASED GLUCOSE; Start 07/21/16 at 06:00 Glucagon (Glucagen) 1 mg Q15M PRN IM DECREASED GLUCOSE; Start 07/21/16 at 06:00 Glucose (Glutose) 15 gm Q15M PRN BUCCAL DECREASED GLUCOSE; Start 07/21/16 at 06 :00 Epoetin Pierce (Epogen (Esrd)) 8,000 units TuThSa@17 SC Last administered on 07/26 18:29; Admin Dose 8,000 UNITS; Start 07/21/16 at 17:00 Insulin Glargine (Lantus) 10 unit DAILY@20 SC Last administered on 07/26/16 20 :47; Admin Dose 10 UNIT; Start 07/21/16 at 20:00 Benazepril HCl (Lotensin) 10 mg DAILY PO Last administered on 07/26/16 08:43; Admin Dose 10 MG; Start 07/22/16 at 09:00 Isosorbide Dinitrate (Isordil) 10 mg TID PO Last administered on 07/26/16 08: 42; Admin Dose 10 MG; Start 07/21/16 at 21:00 Acetaminophen/ Hydrocodone Bitart ([place] (5/325)) 1 tab Q4H PRN PO pain Last administered on 07/22/16 22:41; Admin Dose 1 TAB; Start 07/22/16 at 15:30 Morphine Sulfate (morphine) 3 mg Q2H PRN IV PAIN Last administered on 07:56; Admin Dose 3 MG; Start 07/23/16 at 01:15 Atorvastatin Calcium (Lipitor) 40 mg HS PO Last administered on 07/26/16 20:48 ; Admin Dose 40 MG; Start 07/23/16 at 21:00 Heparin Sodium (Porcine) (Heparin (5000 Units/0.5 ml)) 5,000 unit BID SC Last administered on 07/26/16 08:56; Admin Dose 5,000 UNIT; Start 07/24/16 at 21:00 Levofloxacin (Levaquin) 250 mg Q48H PO Last administered on 07/25/16 14:00; Admin Dose 250 MG; Start 07/25/16 at 13:00 Lactobacillus Acidophilus (Florajen3 Capsule) 1 each BID PO Last administered on 07/26/16 20:40; Admin Dose 1 EACH; Start 07/25/16 at 21:00 Aspirin (Aspirin) 81 mg DAILY PO Last administered on 07/27/16 08:00; Admin Dose 81 MG; Start 07/26/16 at 09:00 Ketorolac Tromethamine (Toradol) 15 mg Q6H PRN IV PAIN Last administered on 09:34; Admin Dose 15 MG; Start 07/27/16 at 01:30; Stop 07/30/16 at 01:29 Morphine Sulfate (Ms Contin (Er)) 30 mg BID PO ; Start 07/27/16 at 01:30 Hydromorphone HCl (Dilaudid) 1 mg Q6H PRN IV PAIN Last administered on 04:10; Admin Dose 1 MG; Start 07/27/16 at 04:00 GER BOWMAN MD July 27, 2016 10:45
[2016-07-27] MEDS: LEVOFLOXACIN 250 MG TAB PO SCH (12:37)
--- NOTE | 2016-07-27 13:29 | PN ---
DATE: 07/27/2016 SUBJECTIVE: Patient is in hemodialysis, awake, looks comfortable, no fevers. ANTIMICROBIALS: 1. Vancomycin. 2. Levaquin. PHYSICAL EXAMINATION: GENERAL: Well-developed elderly man who is in no distress. HEENT: Head atraumatic, normocephalic. Sclerae anicteric. Buccal mucosa dry. NECK: Supple, trachea midline. CHEST: Rise symmetrical. Breath sounds diminished to bases. HEART: S1, S2. ABDOMEN: Soft. Bowel tones present. EXTREMITIES: Without cyanosis. ASSESSMENT: 1. Right foot cellulitis, status post transmetatarsal amputation with wound vacuum-assisted closure application. 2. Peripheral vascular disease. 3. End-stage renal disease, hemodialysis dependent. 4. Diabetes. PLAN: The patient remains stable. He is being followed by multiple consultants. We will keep him on IV vancomycin after discharge for 7 days. The patient to follow with Dr. Dasilva as an outpatient for further recommendations. Dictated By: MARYLOU SCHNEIDER SENIOR ANALYTIC CONSULTANT yin ZAVALA/ROD Conf#: [id number] DID#: [id number]
--- NOTE | 2016-07-27 15:18 | CONS ---
Date/Time of Note Date/Time of Note DATE: 07/27/16 TIME: 15:11 Assessment/Plan Assessment/Plan Chief Complaint/Hosp Course IMPRESSION: 1. Chest pain, assess for acute coronary syndrome.-negative troponin x 3. Lexiscan stress test with TID and large anterior and inferior wall reversible component, EF 31% 2. Abnormal electrocardiogram, assess for acute coronary syndrome. 3. History of coronary artery disease, status post coronary artery bypass graft surgery. 4. Cardiomyopathy, decreased left ventricular ejection fraction last time approximately 35% to 40% by echo 03/2016. 5. Hypertension-currently borderline Hotn 6. Dyslipidemia. 7. Peripheral arterial disease, status post right transmetatarsal amputation. s /p debridement of RLE wound 8. Possible cellulitis of the left foot. 9. End-stage renal disease on hemodialysis. 10. Anemia, macrocytic. Recc: -Tele -serial ecg's -Continue benazepril/coreg/isordil but decrease doses to allow patient to better tolerate -Continue statin -Ongoing vascular eval and treatment -local wound care -Lexiscan stress with large area of ischemia anterior/ischemia and EF 31. Recc cardiac cath when healed from LEwound/debridement -Continue asa and consider addition of plavix to maximize medical therapy Problems: Consultation Date/Type/Reason Admit Date/Time July 21, 2016 at 02:28 Initial Consult Date 07/21/16 Type of Consultation: cardiology Reason for Consultation CHF/cardiomyopathy Referring Provider: STACEY NEWTON Exam/Review of Systems Vital Signs Vitals Vital Signs Date Time Temp Pulse Resp B/P Pulse Ox O2 Delivery O2 Flow Rate FiO2 07/27/16 13:23 77 14 07/27/16 11:40 98.0 101/55 98 07/26/16 17:59 Nasal Cannula 2.0 Intake and Output 07/26/16 07/26/16 07/27/16 15:00 23:00 07:00 Intake Total 200 ml 250 ml Output Total 76 ml Balance 124 ml 250 ml Exam Review of Systems: CONSTITUTIONAL: No fevers, chills. PULMONARY: No sob CARDIOVASCULAR: No chest pain/palpitations GASTROINTESTINAL: No nausea/vomiting. GENITOURINARY: No hematuria/dysuria. MUSCULOSKELETAL: mild pain in foot PSYCHIATRIC: The patient denies depression. NEUROLOGIC: No weakness Constitutional: alert Psych: no complaints Head: normocephalic ENMT: mucosa pink and moist Neck: jvd (9 cm water), supple Respiratory: diminished breath sounds Cardiovascular: regular rate and rhythm Gastrointestinal: non-tender, soft Musculoskeletal: muscle tone (normal) Extremities: other (R le extremity s/p debridement with dressing covering) Results Result Diagram: 07/24/16 1350 07/24/16 1350 Results 24 hrs Laboratory Tests Test 07/26/16 18:24 07/26/16 20:09 07/27/16 02:09 07/27/16 07:53 Bedside Glucose 74 195 168 115 Test 07/27/16 12:32 Bedside Glucose 180 Medications Medications Current Medications Ondansetron HCl (Zofran Inj) 4 mg Q6H PRN IV NAUSEA AND/OR VOMITING; Start at 05:00 Acetaminophen (Tylenol Tab) 650 mg Q6H PRN PO PAIN LEVEL 1-3 OR FEVER; Start at 05:00 Docusate Sodium (Colace) 100 mg Q12H PRN PO CONSTIPATION Last administered on 20:11; Admin Dose 100 MG; Start 07/21/16 at 05:00 Bisacodyl (Dulcolax) 5 mg DAILY PRN PO CONSTIPATION; Start 07/21/16 at 05:00 Carvedilol (Coreg) 25 mg BID PO Last administered on 07/26/16 08:43; Admin Dose 25 MG; Start 07/21/16 at 09:00 Clonazepam (Klonopin) 1 mg QHS PRN PO ANXIETY Last administered on 07/25/16 21 :51; Admin Dose 1 MG; Start 07/21/16 at 06:00 Doxazosin Mesylate (Cardura) 4 mg DAILY@21 PO Last administered on 07/25/16 20 :28; Admin Dose 4 MG; Start 07/21/16 at 21:00 Gabapentin (Neurontin) 300 mg BID PO Last administered on 07/27/16 08:00; Admin Dose 300 MG; Start 07/21/16 at 09:00 Hydroxyzine HCl (Atarax) 50 mg Q6H PRN PO ITCHING; Start 07/21/16 at 06:00 Paroxetine HCl (Paxil) 20 mg DAILY PO Last administered on 07/27/16 08:01; Admin Dose 20 MG; Start 07/21/16 at 09:00 Miscellaneous Information 1 ea NOTE XX ; Start 07/21/16 at 06:00 Glucose (Glutose) 15 gm Q15M PRN PO DECREASED GLUCOSE; Start 07/21/16 at 06:00 Glucose (Glutose) 22.5 gm Q15M PRN PO DECREASED GLUCOSE; Start 07/21/16 at 06: 00 Dextrose (D50w Syringe) 25 ml Q15M PRN IV DECREASED GLUCOSE; Start 07/21/16 at 06:00 Dextrose (D50w Syringe) 50 ml Q15M PRN IV DECREASED GLUCOSE; Start 07/21/16 at 06:00 Glucagon (Glucagen) 1 mg Q15M PRN IM DECREASED GLUCOSE; Start 07/21/16 at 06:00 Glucose (Glutose) 15 gm Q15M PRN BUCCAL DECREASED GLUCOSE; Start 07/21/16 at 06 :00 Epoetin Pierce (Epogen (Esrd)) 8,000 units TuThSa@17 SC Last administered on 07/26 18:29; Admin Dose 8,000 UNITS; Start 07/21/16 at 17:00 Insulin Glargine (Lantus) 10 unit DAILY@20 SC Last administered on 07/26/16 20 :47; Admin Dose 10 UNIT; Start 07/21/16 at 20:00 Benazepril HCl (Lotensin) 10 mg DAILY PO Last administered on 07/26/16 08:43; Admin Dose 10 MG; Start 07/22/16 at 09:00 Isosorbide Dinitrate (Isordil) 10 mg TID PO Last administered on 07/26/16 08: 42; Admin Dose 10 MG; Start 07/21/16 at 21:00 Acetaminophen/ Hydrocodone Bitart ([place] (5/325)) 1 tab Q4H PRN PO pain Last administered on 07/22/16 22:41; Admin Dose 1 TAB; Start 07/22/16 at 15:30 Morphine Sulfate (morphine) 3 mg Q2H PRN IV PAIN Last administered on 12:44; Admin Dose 3 MG; Start 07/23/16 at 01:15 Atorvastatin Calcium (Lipitor) 40 mg HS PO Last administered on 07/26/16 20:48 ; Admin Dose 40 MG; Start 07/23/16 at 21:00 Heparin Sodium (Porcine) (Heparin (5000 Units/0.5 ml)) 5,000 unit BID SC Last administered on 07/26/16 08:56; Admin Dose 5,000 UNIT; Start 07/24/16 at 21:00 Levofloxacin (Levaquin) 250 mg Q48H PO Last administered on 07/27/16 12:37; Admin Dose 250 MG; Start 07/25/16 at 13:00 Lactobacillus Acidophilus (Florajen3 Capsule) 1 each BID PO Last administered on 07/26/16 20:40; Admin Dose 1 EACH; Start 07/25/16 at 21:00 Aspirin (Aspirin) 81 mg DAILY PO Last administered on 07/27/16 08:00; Admin Dose 81 MG; Start 07/26/16 at 09:00 Ketorolac Tromethamine (Toradol) 15 mg Q6H PRN IV PAIN Last administered on 09:34; Admin Dose 15 MG; Start 07/27/16 at 01:30; Stop 07/30/16 at 01:29 Morphine Sulfate (Ms Contin (Er)) 30 mg BID PO ; Start 07/27/16 at 01:30 Hydromorphone HCl (Dilaudid) 1 mg Q4H PRN IV PAIN; Start 07/27/16 at 13:00 Famotidine (Pepcid) 20 mg DAILY PO ; Start 07/28/16 at 09:00 TOMAS WELCH July 27, 2016 15:18
--- NOTE | 2016-07-27 16:16 | PN ---
Date/Time of Note Date/Time of Note DATE: 07/27/16 TIME: 16:14 Assessment/Plan VTE Prophylaxis VTE Prophylaxis Intervention: heparin Lines/Catheters IV Catheter Type (from Nrs): Saline Lock Urinary Cath still in place: No Assessment/Plan Chief Complaint/Hosp Course Assessment and plan 1. Chest pain with positive stress test. Follow-up with cardiology recommendations. Continue optimization with cardiovascular medications. no reported chest pain at this time . Of note Lexiscan stress test did show moderate to large reversible perfusion defect in the anterior lateral ward and to lesser extent and inferior wall. 2. End-stage renal disease on dialysis. Continue on dialysis. Monitor renal panel and for electrolyte disturbance. stable 3. Essential hypertension. Continue antihypertensives as needed 4. Dyslipidemia. Patient to be resumed on statin medication 5. PVD status post right great toe amputation and currently on wound VAC. Patient is status post revision of transmetatarsal amputation 07/26/16. Follow- up with podiatry recommendations. Disposition and plan: Continue with wound care. Follow-up with podiatry for wound care management. DC when cleared by consultants in medically stable Discussed plan of care with Dr. Cervantes Problems: Subjective 24 Hr Interval Summary Free Text/Dictation Was receiving dialysis during visit Exam/Review of Systems Vital Signs Vitals Vital Signs Date Time Temp Pulse Resp B/P Pulse Ox O2 Delivery O2 Flow Rate FiO2 07/27/16 13:23 77 14 07/27/16 11:40 98.0 101/55 98 07/26/16 17:59 Nasal Cannula 2.0 Intake and Output 07/26/16 07/26/16 07/27/16 15:00 23:00 07:00 Intake Total 200 ml 250 ml Output Total 76 ml Balance 124 ml 250 ml Exam Constitutional: alert, oriented, anxious Psych: nl mood/affect Head: normocephalic Eyes: nl conjunctiva Neck: supple, No jvd Respiratory: clear to auscultation Cardiovascular: other (regular rate) Gastrointestinal: non-tender, soft Musculoskeletal: other (Right lower extremity with dressing in place and noted with bilateral lower extremity edema +3) also with edema left lower extremity Neurological: [employer] II-XII intact, nl mental status, nl speech Results Result Diagram: 07/24/16 1350 07/24/16 1350 Results 24 hrs Laboratory Tests Test 07/26/16 18:24 07/26/16 20:09 07/27/16 02:09 07/27/16 07:53 Bedside Glucose 74 195 168 115 Test 07/27/16 12:32 Bedside Glucose 180 Medications Medications Current Medications Ondansetron HCl (Zofran Inj) 4 mg Q6H PRN IV NAUSEA AND/OR VOMITING; Start at 05:00 Acetaminophen (Tylenol Tab) 650 mg Q6H PRN PO PAIN LEVEL 1-3 OR FEVER; Start at 05:00 Docusate Sodium (Colace) 100 mg Q12H PRN PO CONSTIPATION Last administered on 20:11; Admin Dose 100 MG; Start 07/21/16 at 05:00 Bisacodyl (Dulcolax) 5 mg DAILY PRN PO CONSTIPATION; Start 07/21/16 at 05:00 Clonazepam (Klonopin) 1 mg QHS PRN PO ANXIETY Last administered on 07/25/16 21 :51; Admin Dose 1 MG; Start 07/21/16 at 06:00 Gabapentin (Neurontin) 300 mg BID PO Last administered on 07/27/16 08:00; Admin Dose 300 MG; Start 07/21/16 at 09:00 Hydroxyzine HCl (Atarax) 50 mg Q6H PRN PO ITCHING; Start 07/21/16 at 06:00 Paroxetine HCl (Paxil) 20 mg DAILY PO Last administered on 07/27/16 08:01; Admin Dose 20 MG; Start 07/21/16 at 09:00 Miscellaneous Information 1 ea NOTE XX ; Start 07/21/16 at 06:00 Glucose (Glutose) 15 gm Q15M PRN PO DECREASED GLUCOSE; Start 07/21/16 at 06:00 Glucose (Glutose) 22.5 gm Q15M PRN PO DECREASED GLUCOSE; Start 07/21/16 at 06: 00 Dextrose (D50w Syringe) 25 ml Q15M PRN IV DECREASED GLUCOSE; Start 07/21/16 at 06:00 Dextrose (D50w Syringe) 50 ml Q15M PRN IV DECREASED GLUCOSE; Start 07/21/16 at 06:00 Glucagon (Glucagen) 1 mg Q15M PRN IM DECREASED GLUCOSE; Start 07/21/16 at 06:00 Glucose (Glutose) 15 gm Q15M PRN BUCCAL DECREASED GLUCOSE; Start 07/21/16 at 06 :00 Epoetin Pierce (Epogen (Esrd)) 8,000 units TuThSa@17 SC Last administered on 07/26 18:29; Admin Dose 8,000 UNITS; Start 07/21/16 at 17:00 Insulin Glargine (Lantus) 10 unit DAILY@20 SC Last administered on 07/26/16 20 :47; Admin Dose 10 UNIT; Start 07/21/16 at 20:00 Benazepril HCl (Lotensin) 10 mg DAILY PO Last administered on 07/26/16 08:43; Admin Dose 10 MG; Start 07/22/16 at 09:00 Isosorbide Dinitrate (Isordil) 10 mg TID PO Last administered on 07/26/16 08: 42; Admin Dose 10 MG; Start 07/21/16 at 21:00 Acetaminophen/ Hydrocodone Bitart ([place] (5/325)) 1 tab Q4H PRN PO pain Last administered on 07/22/16 22:41; Admin Dose 1 TAB; Start 07/22/16 at 15:30 Morphine Sulfate (morphine) 3 mg Q2H PRN IV PAIN Last administered on 12:44; Admin Dose 3 MG; Start 07/23/16 at 01:15 Atorvastatin Calcium (Lipitor) 40 mg HS PO Last administered on 07/26/16 20:48 ; Admin Dose 40 MG; Start 07/23/16 at 21:00 Heparin Sodium (Porcine) (Heparin (5000 Units/0.5 ml)) 5,000 unit BID SC Last administered on 07/26/16 08:56; Admin Dose 5,000 UNIT; Start 07/24/16 at 21:00 Levofloxacin (Levaquin) 250 mg Q48H PO Last administered on 07/27/16 12:37; Admin Dose 250 MG; Start 07/25/16 at 13:00 Lactobacillus Acidophilus (Florajen3 Capsule) 1 each BID PO Last administered on 07/26/16 20:40; Admin Dose 1 EACH; Start 07/25/16 at 21:00 Aspirin (Aspirin) 81 mg DAILY PO Last administered on 07/27/16 08:00; Admin Dose 81 MG; Start 07/26/16 at 09:00 Ketorolac Tromethamine (Toradol) 15 mg Q6H PRN IV PAIN Last administered on t 09:34; Admin Dose 15 MG; Start 07/27/16 at 01:30; Stop 07/30/16 at 01:29 Morphine Sulfate (Ms Contin (Er)) 30 mg BID PO ; Start 07/27/16 at 01:30 Hydromorphone HCl (Dilaudid) 1 mg Q4H PRN IV PAIN; Start 07/27/16 at 13:00 Famotidine (Pepcid) 20 mg DAILY PO ; Start 07/28/16 at 09:00 Carvedilol (Coreg) 12.5 mg BID PO ; Start 07/27/16 at 21:00 Doxazosin Mesylate (Cardura) 2 mg DAILY@21 PO ; Start 07/27/16 at 21:00 MARYELLEN BARNETT July 27, 2016 16:16
--- NOTE | 2016-07-27 19:00 | PN ---
Date/Time of Note Date/Time of Note DATE: 07/27/16 TIME: 18:54 Assessment/Plan Lines/Catheters IV Catheter Type (from [facility]): Saline Lock Mott in Place (from [facility]): No Assessment/Plan Chief Complaint/Hosp Course -Bilateral lower extremity atherosclerosis with gangrene: It seems the patient' s new revascularization from the right axillary to femoral has perfused the right lower extremity. The patient has also undergone a new open transmetatarsal amputation with possible posterior flap that may be able to allow good granulation tissue develop with the wound VAC negative pressure system and allow for adequate wound healing. At the moment, the patient does have some drainage from the lateral aspect of the wound. From a vascular surgery standpoint, the patient has had his revascularization in terms of inflow and no further intervention will be needed from our standpoint for now. We will offer the patient to undergo debridement and possible revision of his transmetatarsal amputation stump and will plan to follow the wound's progress. Would recommend for secondary wound closure in order to allow for adequate granulation tissue development. Will need home health -Optimize vascular status (BP meds, diet, nutrition, exercise, sugar control, antiplatelets, weight loss). -End-stage renal disease on hemodialysis Monday, Monday, Monday. Currently, the patient is tolerating his fistula via his left upper extremity for his dialysis sessions. We will plan to schedule the patient for eventual fistula ultrasound and to monitor its progress for now. -Discussed smoking cessation with the patient as he is an active smoker about 1/ 2 pack to 1 pack per day for 46 years. -Discussed findings, plan and management with the patient and he understands. -No further vascular intervention at this time. We will plan to follow his wound healing with our podiatry colleagues -Thank you for allowing us to partake in the care of your patient. Please call with any questions. Problems: Subjective 24 Hr Interval Summary no new vascular events overnight Exam/Review of Systems Vital Signs Vitals Vital Signs Date Time Temp Pulse Resp B/P Pulse Ox O2 Delivery O2 Flow Rate FiO2 07/27/16 16:17 98.0 78 20 111/56 98 07/26/16 17:59 Nasal Cannula 2.0 Intake and Output 07/26/16 07/26/16 07/27/16 15:00 23:00 07:00 Intake Total 200 ml 250 ml Output Total 76 ml Balance 124 ml 250 ml Exam Free Text/Dictation GENERAL: Alert and oriented x3 PULMONARY: Coarse breath sounds bilaterally, some crackles at the bases. CARDIOVASCULAR: S1, S2 present. ABDOMEN: Soft, nontender, nondistended. Bowel sounds positive. Surgical midline incision is well healed with some areas of granulation tissue. Truncal obesity. EXTREMITIES: 1. Right upper extremity: Palpable brachial pulse. Motor, sensory intact. Cap refill 2 to 3 seconds. Axillofemoral bypass near collarbone palpable, 2. Left upper extremity: Palpable brachial pulse. Motor, sensory intact. Cap refill 2 to 3 seconds. Axillary to femoral bypass palpable. fistula with bruit and thrill present 3. Right lower extremity: Palpable femoral pulse, nonpalpable pedal pulse. Motor, sensory intact. Capillary refill 3 to 4 seconds. TMA stump with dressing intact 4. Left lower extremity: Palpable femoral pulse. Surgical scar is well healed. Nonpalpable pedal pulse. Motor and sensory intact. Capillary refill 3 to 4 seconds. Results Result Diagram: 07/24/16 1350 07/24/16 1350 LUZ MARIN MD July 27, 2016 19:00
[2016-07-27] MEDS ORDERED: DOXAZOSIN 2 MG TAB PO SCH (21:00)
[2016-07-28] MEDS ORDERED: FAMOTIDINE 20 MG TAB PO SCH (09:00)
== END 2016-07-27 19:00 | disposition left against medical advice (07) | DRG 474 ==
LOC: E/R 22:34 → TEL 07-21 02:28
PROVIDERS: ADMIT Family Medicine; ATTEND Family Medicine
PROC: 5A1D60Z (ICD-10-PCS; 2016-07-22)
PROC: 30253N1 (ICD-10-PCS; 2016-07-22)
PROC: 0Y6M0ZB Detachment at Right Foot, Partial 2nd Ray, Open Approach (ICD-10-PCS; 2016-07-26)
PROC: 0Y6M0ZC Detachment at Right Foot, Partial 3rd Ray, Open Approach (ICD-10-PCS; 2016-07-26)
PROC: 0Y6M0ZD Detachment at Right Foot, Partial 4th Ray, Open Approach (ICD-10-PCS; 2016-07-26)
PROC: 0Y6M0ZF Detachment at Right Foot, Partial 5th Ray, Open Approach (ICD-10-PCS; 2016-07-26)
PROC: 0Y6M0Z9 Detachment at Right Foot, Partial 1st Ray, Open Approach (ICD-10-PCS; principal; 2016-07-26 15:30)
DX: T87.53 Necrosis of amputation stump, right lower extremity (principal); I50.21 Acute systolic (congestive) heart failure; N18.6 End stage renal disease; E11.22 Type 2 diabetes mellitus with diabetic chronic kidney disease; I95.9 Hypotension, unspecified; I13.2 Hypertensive heart and chronic kidney disease with heart failure and with stage 5 chronic kidney disease, or end stage renal disease; L03.115 Cellulitis of right lower limb; R07.89 Other chest pain; I25.10 Atherosclerotic heart disease of native coronary artery without angina pectoris; J44.9 Chronic obstructive pulmonary disease, unspecified; D64.9 Anemia, unspecified; E03.9 Hypothyroidism, unspecified; Z79.4 Long term (current) use of insulin; Z95.1 Presence of aortocoronary bypass graft; Z72.0 Tobacco use; F41.9 Anxiety disorder, unspecified; M10.9 Gout, unspecified; E78.5 Hyperlipidemia, unspecified; E66.9 Obesity, unspecified; Z68.35 Body mass index [BMI] 35.0-35.9, adult; Z99.2 Dependence on renal dialysis; I73.9 Peripheral vascular disease, unspecified
CPT/HCPCS: 36430; 70450; 71010; 71275; 73550; 73560; 73600; 73630; 78452; 80048; 80053; 80061; 80202; 82550; 82553; 82728; 82962; 83036; 83540; 83735; 83880; 84100; 84439; 84443; 84466; 84484; 85025; 85378; 85610; 85730; 86850; 86900; 86901; 86920; 87081; 88304; 88311; 90935; 93005; 93017; 96374; 96375; 96376; A9500; A9505; J1170; J1644; J1815; J1885; J2250; J2270; J2543; J2785; J3010; J3370; J7040; L4360-RT; P9016; P9047; Q4081; Q9967

== ENCOUNTER 2016-09-29 14:43 | Emergency (ER) | payer BC, OTHER ==
[~2016-09-29] VITALS: Ht 175.3 cm; Wt 100.0 kg
[~2016-09-29 14:43] MED LIST changes: -ALLO300T2 PO; -ALPR1TAB2 PO; +AMOX1TAB9 PO; +ASPI-664 PO; +ATOR20TA38 PO; -BECL8.7A5 INH; +CARV25TA79 PO; +CLON1TAB3 PO; -GEMF600T60 PO; -HYDR-3011 PO; +HYDR-3012 PO; -LACT1CAP17 PO; -LEVO50TA74 PO; +LEVO75TA5 PO; +SERT100T PO; -SITA50TA2 PO
[2016-09-29 14:45] VITALS: Ht 175.3 cm; Wt 100.0 kg
[2016-09-29] MEDS ORDERED: INSU100V3 IJ (15:13)
[2016-09-29 15:23] LABS: BASOPHILS % 0.1 % (0.0-2.0); EOSINOPHILS # 0.1 10^3/ul (0.0-0.5); EOSINOPHILS % 0.8 % (0.0-7.0); HEMATOCRIT 33.5 % (42.0-52.0); HEMOGLOBIN 10.4 g/dl (14.0-18.0); LYMPHOCYTES # 1.1 10^3/ul (0.8-2.9); LYMPHOCYTES % 10.7 % (15.0-51.0); MEAN CORPUSCULAR HEMOGLOBIN 30.3 pg (29.0-33.0); MEAN CORPUSCULAR VOLUME 97.7 fl (82.0-101.0); MEAN PLATELET VOLUME 9.8 fl (7.4-10.4); MONOCYTE # 0.8 10^3/ul (0.3-0.9); MONOCYTES % 7.4 % (0.0-11.0); NEUTROPHIL # 8.1 10^3/ul (1.6-7.5); NEUTROPHILS % 80.4 % (39.0-77.0); PLATELET COUNT 109 10^3/UL (140-415); RED BLOOD COUNT 3.43 10^6/ul (4.70-6.10); RED CELL DISTRIBUTION WIDTH 14.7 % (11.5-14.5); WHITE BLOOD COUNT 10.1 10^3/ul (4.8-10.8)
[2016-09-29 16:02] LABS: ALBUMIN 4.2 g/dl (3.3-4.9); ALBUMIN/GLOBULIN RATIO 1.31; CALCIUM 8.6 mg/dl (8.4-10.2); CREATININE 10.42 mg/dl (0.61-1.24); POTASSIUM 5.9 mmol/L (3.5-5.1); TOTAL PROTEIN 7.4 g/dl (6.1-8.1)
[2016-09-29] MEDS ORDERED: CA CHLORIDE 10% 10 ML SYRINGE IV STA (16:07)
[2016-09-29] MEDS ORDERED: NA BICARBONATE 8.4% 50 ML SYG IV STA (16:07)
--- NOTE | 2016-09-29 16:28 | RADRPT ---
PROCEDURE: XR Chest. CLINICAL INDICATION: weakness TECHNIQUE: Single frontal view of the chest was obtained COMPARISON: Chest x-ray 07/20/2016 FINDINGS: Mediasternotomy wires and mediastinal clips and vascular stent inferior to the left clavicular head are redemonstrated. The cardiac silhouette remains enlarged. There are atherosclerotic calcifications of the thoracic aorta. There is persistent pulmonary vascular congestion and increased interstitial edema. No pneumothorax is identified. There is trace left pleural effusion, likely new compared to prior study. There are degenerative changes of the spine. IMPRESSION: 1. Cardiomegaly with increased pulmonary vascular congestion and interstitial edema compared to cynthia or study. 2. Trace left pleural effusion, likely new compared to prior study. 3. Thoracic aortic atherosclerotic disease. RPTAT: PP Physician Leslie Date Time Electronically viewed and signed by Physician Leslie on 09/29/2016 16:28 /
[2016-09-29] MEDS ORDERED: CALCIUM GLUCONATE 10% 1 GM in SOD CHLORIDE 0.9% 100 ML IVPB ONE (16:30)
--- NOTE | 2016-09-29 16:35 | ERA ---
ER Documentation Chief Complaint Date/Time DATE: 09/29/16 TIME: 16:30 Chief Complaint ABD PAIN WITH DIARRHEA X 3 DAYS , DENIES BLOOD IN STOOL HPI This is a 61-year-old male who presents to the emergency room for evaluation of diarrhea for the past 6 days. The patient states that he does have a history of diabetes, hypertension, end-stage renal disease and is on dialysis Monday, Monday, and Monday. The patient states that he misses dialysis yesterday because he was having diarrhea. He states that he came to the ER today for evaluation and denies any blood in the diarrhea, denies taking any antibiotics at this time, denies any fevers. The patient does state he has abdominal cramping but denies any abdominal pain at this time ROS All systems reviewed and are negative except as per history of present illness. Medications Home Meds Active Scripts Glipizide* (Glipizide*) 5 Mg Tablet, 5 MG PO AC BREAKFAST DINNER for 60 Days, TAB Prov:STACEY NEWTON 05/31/15 Hydrocodone Bit-Acetaminophen* ([place]*) 10-325 Mg Tablet, 1 TAB PO Q4H Y for PAIN, #20 TAB Prov:KAYLYN ORDAZ MD 02/20/15 Reported Medications Insulin Regular, Human (Humulin R) 100 Unit/1 Ml Vial, 0 IJ QHS, VIAL SLIDING SCALE NO SCALE GIVEN 09/29/16 Clonazepam* (Clonazepam*) 1 Mg Tablet, 1 MG PO QHS Y for ANXIETY, TAB 07/21/16 Carvedilol* (Carvedilol*) 25 Mg Tablet, 25 MG PO BID, #60 TAB 07/21/16 Sertraline Hcl* (Zoloft*) 100 Mg Tablet, 100 MG PO DAILY, #30 TAB 07/21/16 Atorvastatin Calcium* (Atorvastatin Calcium*) 20 Mg Tablet, 20 MG PO QHS, #30 TAB 07/21/16 Aspirin* (Aspirin* EC) 81 Mg Tablet.dr, 81 MG PO DAILY, TAB 07/21/16 Levothyroxine Sodium* (Levothyroxine Sodium*) 75 Mcg Tablet, 75 MCG PO BEFORE BREAKFAST, #30 TAB 07/21/16 Hydroxyzine Hcl* (Hydroxyzine Hcl*) 50 Mg Tablet, 50 MG PO Q6H Y for ITCHING, # 30 TAB 07/21/16 Pantoprazole* (Protonix*) 40 Mg Tablet.dr, 40 MG PO DAILY, TAB 02/20/15 Gabapentin* (Gabapentin*) 300 Mg Capsule, 300 MG PO BID, CAP 03/17/14 Doxazosin Mesylate* (Doxazosin Mesylate*) 4 Mg Tablet, 4 MG PO DAILY, TAB 12/02/13 Sevelamer Hcl* (Renagel*) 800 Mg Tablet, 800 MG PO TID, TAB 09/10/13 Paroxetine Hcl* (Paroxetine*) 20 Mg Tablet, 20 MG PO DAILY, TAB 09/02/13 Discontinued Reported Medications Amoxicillin/Potassium Clav (Amox-Clav 500-125 mg Tablet) 500-125 mg Tab, 1 TAB PO Q8 for 20 Days, TAB 07/21/16 Insulin Regular, Human (Humulin R) 100 Units/Ml Vial, SC HS, VIAL per sliding scale 09/10/13 Allergies Allergies: Coded Allergies: No Known Allergy (Unverified , 09/29/16) PER PT NOT ALLERGIC TO IRON (NKA) PMhx/Soc History of Surgery: Yes (Foot amputated, CABGx2,Cholecystectomy, Hernia repar, L AV shunt) Anesthesia Reaction: No Hx Neurological Disorder: No Hx Respiratory Disorders: Yes (COPD) Hx Cardiac Disorders: Yes (HTN,CABG) Hx Psychiatric Problems: No Hx Miscellaneous Medical Probl: Yes (Hypothyroid) Hx Alcohol Use: No Hx Substance Use: No Hx Tobacco Use: Yes Smoking Status: Current every day smoker Physical Exam Vitals Vital Signs Date Time Temp Pulse Resp B/P Pulse Ox O2 Delivery O2 Flow Rate FiO2 09/29/16 16:25 84 20 95/48 96 Room Air 09/29/16 15:34 84 18 81/57 96 Room Air 09/29/16 14:45 98.3 96 18 87/46 97 Physical Exam Const: No acute distress Head: Atraumatic Eyes: Normal Conjunctiva ENT: Normal External Ears, Nose and Mouth. Neck: Full range of motion..~ No meningismus. Resp: Clear to auscultation bilaterally Cardio: Regular rate and rhythm, no murmurs Abd: Healing incision scar o inferior to umbilicus, soft, non tender, non distended. Normal bowel sounds Skin: Left upper extremity fistula, no petechiae or rashes Back: No midline or flank tenderness Ext: Right toe amputation no cyanosis, or edema Neur: Awake and alert Psych: Normal Mood and Affect Result Diagram: 09/29/16 1513 09/29/16 1513 Results 24 hrs Laboratory Tests Test 09/29/16 15:13 White Blood Count 10.110^3/ul Red Blood Count 3.4310^6/ul Hemoglobin 10.4g/dl Hematocrit 33.5% Mean Corpuscular Volume 97.7fl Mean Corpuscular Hemoglobin 30.3pg Mean Corpuscular Hemoglobin Concent 31.0g/dl Red Cell Distribution Width 14.7% Platelet Count 37035^3/UL Mean Platelet Volume 9.8fl Neutrophils % 80.4% Lymphocytes % 10.7% Monocytes % 7.4% Eosinophils % 0.8% Basophils % 0.1% Nucleated Red Blood Cells % 0.0/100WBC Neutrophils # 8.110^3/ul Lymphocytes # 1.110^3/ul Monocytes # 0.810^3/ul Eosinophils # 0.110^3/ul Basophils # 0.010^3/ul Nucleated Red Blood Cells # 0.010^3/ul Sodium Level 142mmol/L Potassium Level 5.9mmol/L Chloride Level 104mmol/L Carbon Dioxide Level 15mmol/L Anion Gap 29 Blood Urea Nitrogen 64mg/dl Creatinine 10.42mg/dl Glucose Level 86mg/dl Calcium Level 8.6mg/dl Total Bilirubin 0.0mg/dl Direct Bilirubin 0.00mg/dl Indirect Bilirubin 0.0mg/dl Aspartate Amino Transf (AST/SGOT) 14IU/L Alanine Aminotransferase (ALT/SGPT) 18IU/L Alkaline Phosphatase 100IU/L Total Protein 7.4g/dl Albumin 4.2g/dl Globulin 3.20g/dl Albumin/Globulin Ratio 1.31 Lipase 38U/L Current Medications Medications (Trade) Dose Ordered Sig/Romaine Route PRN Reason Start Time Stop Time Status Last Admin Dose Admin Sodium Bicarbonate (Na Bicarb 8.4% Syg) 50 ml ONCE STAT IV 09/29/16 16:07 09/29/16 16:09 DC Calcium Chloride 1000 mg 1,000 mg ONCE STAT IV 09/29/16 16:07 09/29/16 16:10 DC Calcium Gluconate/ Sodium Chloride (Ca Gluc/NS) 110 ml @ 110 mls/hr ONCE ONCE IVPB 09/29/16 16:30 09/29/16 17:29 Procedures/MDM Chest X-ray 1V Interpreted by me: Soft Tissue: Left-sided pleural effusion Bones: No acute abnormalities Mediastinum/Cardiac Silhouette/Lungs: [No acute abnormalities] EKG: Rate/Rhythm: [Normal Sinus Rhythm] QRS, ST, T-waves: [No changes consistent w/ acute ischemia] Impression: [No evidence of ischemia or arrhythmia] This 61-year-old male presents to the emergency room for evaluation of diarrhea. When I evaluated this patient the patient was hypotensive with a blood pressure of 89/61. The patient is a dialysis patient and states he missed his dialysis yesterday because he was having diarrhea. Lab work was obtained including an EKG and chest x-ray. EKG is nonischemic, chest x-ray shows pulmonary vascular congestion and pleural effusion. This patient's potassium level is 5.9. The patient was given calcium gluconate in the emergency room. I did advise this patient that I recommend admission due to the fact that his potassium is elevated, his blood pressure is low. The patient is adamantly refusing admission at this time. He states that his normal blood pressure is 85 systolic. He states that he will go to dialysis tomorrow. I discussed the risk of leaving the hospital AGAINST MEDICAL ADVICE including the risk of from arrhythmia from hyperkalemia and other causes and the patient does verbalize understanding. The patient does have capacity to make medical decisions. The patient will be discharged AGAINST MEDICAL ADVICE at this time with instructions to return to the ER at anytime if he were to change his mind. Against Medical Advice Note The patient verbalized understanding of risks of signing out against medical advice including and disability. The patient explained to me the reason for wanting to sign out against medical advice, he does not want to stay in the hospital. The patient is alert and oriented x 3 with decisional capacity and competence to sign out. They were welcomed to come back to ER and will be going home with discharge paperwork. Departure Diagnosis: Primary Impression: Hyperkalemia Additional Impressions: Diarrhea with dehydration Acute on chronic renal failure Condition: Stable JOEL VICENTE DO Sep 29, 2016 16:35
[2016-09-29] MEDS ORDERED: CA GLUCONATE (GM) 10% 10ML INJ ONE (16:47)
[2016-09-29 17:16] VITALS: BP 104/41; PULSE 81; RESP 16
== END 2016-09-29 17:17 | disposition left against medical advice (07) ==
LOC: E/R 14:43
DX: E87.5 Hyperkalemia (principal); E86.0 Dehydration; N17.9 Acute kidney failure, unspecified; I10 Essential (primary) hypertension; J44.9 Chronic obstructive pulmonary disease, unspecified; E03.9 Hypothyroidism, unspecified; F17.210 Nicotine dependence, cigarettes, uncomplicated; Z95.1 Presence of aortocoronary bypass graft; Z79.4 Long term (current) use of insulin; Z79.84 Long term (current) use of oral hypoglycemic drugs; Z79.82 Long term (current) use of aspirin
CPT/HCPCS: 36415; 71010; 80053; 83690; 85025; 87045; 87075; 96374; 96375; 99284; J0610

== ENCOUNTER 2017-04-29 16:16 | Inpatient (IN) | END 2017-07-31 01:56 | disposition EXP | DRG 3 ==